=== PATIENT | female | born 1945 | race Caucasian/White ===

== ENCOUNTER 2020-03-19 09:20 | Outpatient (REF) | payer MEDICARE, SELFPAY ==
[2020-03-19 11:18] LABS: MANUAL DIFF FLAG NO
[2020-03-19 11:25] LABS: Basophils Absolute Auto 0.1 X10*3/uL (0.0-0.2); Basophils Percent Auto 0.9 % (0-2); Eosinophils Absolute Auto 0.5 X10*3/uL (0.0-0.4); Eosinophils Percent Auto 5.6 % (0-4); Hemoglobin 13.5 g/dl (12.0-16.0); Imm Gran Abs Auto 0.01 X10*3/uL (0.00-0.03); Imm Gran Pct Auto 0.1 % (0.0-0.4); Lymphocytes Absolute Auto 3.3 X10*3/uL (1.2-4.9); Lymphocytes Percent Auto 39.6 % (20-40); Mean Corpuscular HGB Conc 32.1 g/dl (31.0-35.0); Mean Corpuscular Hemoglobin 28.7 pg (27.0-33.0); Mean Corpuscular Volume 89.2 fL (80-98); Mean Platelet Volume 11.5 fL (9.4-12.3); Monocytes Absolute Auto 0.5 X10*3/uL (0.1-1.2); Monocytes Percent Auto 5.7 % (2-11); Neutrophils Absolute Auto 3.9 X10*3/uL (2.0-8.3); Neutrophils Percent Auto 48.1 % (45-73); Platelet Count 254 X10*3/uL (160-400); Red Blood Count 4.71 X10*6/uL (4.20-5.50); Red Cell Distribution Width 12.9 % (11.0-16.0); White Blood Count 8.2 X10*3/uL (4.8-10.8)
[2020-03-19 11:38] LABS: Alanine Aminotransferase 20 U/L (0-31); Albumin Level 3.9 g/dL (3.5-5.0); Alkaline Phosphatase 113 U/L (39-117); Anion Gap 12 (12-20); Aspartate Amino Transferase 22 U/L (5-31); Bilirubin Total 0.4 mg/dL (0.0-1.0); Blood Urea Nitrogen 14 mg/dL (9-16); Calcium 8.8 mg/dL (8.4-10.2); Carbon Dioxide 28 mmol/L (22-29); Chloride 106 mmol/L (96-108); Cholesterol 161 mg/dL; Estimated Glomerular Filt Rate > 60; Glucose Fasting 107 mg/dL (60-99); HDL Cholesterol 59 mg/dL; LDL Cholesterol Calculated 75 mg/dl; Potassium 4.4 mmol/l (3.3-5.1); Sodium 142 mmol/L (135-145); Total Protein 6.8 g/dL (6.5-8.0); Triglycerides 139 mg/dL
[2020-03-19 11:41] LABS: Estimated Average Glucose 126 mg/dL; Hemoglobin A1C 148.9591 umol/L
[2020-03-19 11:57] LABS: Thyroid Stimulating Hormone 0.73 uIU/mL (0.32-4.0)
== END 2020-03-19 09:21 | disposition home or self-care (01) ==
LOC: HO.HMGCLDS 09:20
PROVIDERS: PCP Internal Medicine; Visit Provider Internal Medicine
DX: I10 Essential (primary) hypertension (principal); E78.2 Mixed hyperlipidemia; R73.9 Hyperglycemia, unspecified; F32.9 Major depressive disorder, single episode, unspecified
CPT/HCPCS: 36415; 80053; 80061; 83036; 84443; 85025

== ENCOUNTER 2020-09-24 10:35 | Outpatient (REF) | payer MEDICARE, SELFPAY ==
[2020-09-24 14:25] LABS: Alanine Aminotransferase 22 U/L (0-31); Alkaline Phosphatase 118 U/L (39-117); Anion Gap 14 (12-20); Aspartate Amino Transferase 23 U/L (5-31); Bilirubin Total 0.8 mg/dL (0.0-1.0); Blood Urea Nitrogen 14 mg/dL (9-16); Calcium 9.9 mg/dL (8.4-10.2); Carbon Dioxide 28 mmol/L (22-29); Chloride 104 mmol/L (96-108); Cholesterol 181 mg/dL; Estimated Glomerular Filt Rate > 60; Glucose Fasting 99 mg/dL (60-99); HDL Cholesterol 62 mg/dL; LDL Cholesterol Calculated 94 mg/dl; Potassium 4.3 mmol/L (3.3-5.1); Sodium 142 mmol/L (135-145); Total Protein 6.7 g/dL (6.5-8.0); Triglycerides 127 mg/dL
[2020-09-24 14:26] LABS: Estimated Average Glucose 131 mg/dL; Hemoglobin A1c % 6.2 %
[2020-09-24 14:32] LABS: Creatinine Urine 100.13 mg/dL; Microalbum/Creatinine Ratio Ur 9.9 ug/mg cr
== END 2020-09-24 10:36 | disposition home or self-care (01) ==
LOC: HO.HMGCLDS 10:35
PROVIDERS: PCP Internal Medicine; Visit Provider Internal Medicine
DX: E78.5 Hyperlipidemia, unspecified (principal); I10 Essential (primary) hypertension; R73.9 Hyperglycemia, unspecified
CPT/HCPCS: 36415; 80053; 80061; 82043; 83036

== ENCOUNTER 2020-12-28 11:10 | Emergency (ER) | payer MEDICARE, SELFPAY ==
--- NOTE | ~2020-12-28 | XR_ITS ---
EXAMINATION: XR CHEST CLINICAL INFORMATION: Cough COMPARISON: None TECHNIQUE: Frontal view of the chest was obtained. FINDINGS: The cardiac and mediastinal contours are normal. The lungs are clear. There is no pleural effusion or pneumothorax. There are degenerative changes of the spine. XR/XR chest 1V IMPRESSION: No evidence for acute disease in the chest.
--- NOTE | ~2020-12-28 | CT_ITS ---
EXAMINATION: CT HEAD WITHOUT CONTRAST CLINICAL INFORMATION: Headache COMPARISON: None TECHNIQUE: Contiguous axial imaging was performed from the skull base to vertex without intravenous administration of contrast. This CT examination was performed using dose optimization techniques as appropriate, variously including the following: *Automated exposure control *Adjustment of mA and/or kV according to patient size (this includes techniques or standardized protocols for targeted exams where dose is matched to indication/reason for exam; i.e. extremities or head) *Use of iterative reconstruction technique DLP: 669 mGy-cm FINDINGS: There is no evidence of an extra-axial collection. There is no evidence of intra or extra-axial hemorrhage. The ventricles and extra-axial CSF spaces are prominent suggestive of mild generalized atrophy. [place]-white matter differentiation is normal. There is dural based ossification adjacent to the left frontal lobe just above the sylvian fissure questionable for small meningioma. This measures approximately 1 cm. No mass effect or infarct is seen. Review of bone windows is normal. No skull fracture is seen. Visualized paranasal sinuses, mastoid air cells and middle ears are clear. CT/CT head/brain wo con IMPRESSION: No acute findings. Question small meningioma adjacent to the left frontal lobe measuring 1 cm.
[2020-12-28 12:12] VITALS: BP 167/49; PULSE 53; RESP 18; TEMP 36.5; O2SAT 100; BMI 27.1
--- NOTE | 2020-12-28 12:58 | ED_ITS ---
HPI - Headache General Chief Complaint: Headache Stated Complaint: headache Time Seen by Provider: 12/28/20 12:51 History of Present Illness HPI Narrative: 75-year-old female presents today with having headache. The headache is over the left side. There is dull in nature. Is nonradiating. There is no fever no chills. There is no focal weakness. History of similar headaches in the past. Patient claims the pain is been getting worse over last 1-2 days. Patient denies any diaphoresis. No chest pain or shortness of breath. No cough no congestion. Patient is vaccinated. The pain is throbbing. There is no change in vision. Patient is from home. No travel history Related Data Previous Rx's Medication Instructions Recorded amlodipine 2.5 mg tablet 2.5 mg PO DAILY #90 tab 11/08/20 atorvastatin 40 mg tablet 40 mg PO DAILY #90 tab 11/08/20 duloxetine 60 mg capsule,delayed 60 mg PO DAILY #90 cap 11/08/20 release lisinopril 20 1 tab PO DAILY #90 tab 11/08/20 mg-hydrochlorothiazide 12.5 mg tablet baclofen 10 mg tablet 10 mg PO BEDTIME #10 tab 11/27/20 meloxicam 15 mg tablet 15 mg PO DAILY #10 tab 11/27/20 Allergies Allergy/AdvReac Type Severity Reaction Status Date / Time No Known Allergies Allergy Verified 12/28/20 09:23 [No Known Allergies*] Review of Systems Review of Systems: Positive headache, positive generalized malaise weakness All systems reviewed otherwise negative PMFSH Past Medical History Attestation statement: The following information was validated with the patient. Medical History Depression HTN (hypertension) Hyperglycemia Hyperlipidemia Neck pain Surgical History No pertinent past surgical history Family History Family History Father No problems noted. Mother Heart problem Social History Social History Housing: House Patient Tobacco Use Status: Never used Tobacco e-Cigarette/Vaping Use: Never Used Advance Directives: No Current occupational status: retired Physical Exam Vital Signs: Vital Signs: Last Vital Signs Temp 97.7 F 12/28/20 12:12 Pulse 53 12/28/20 12:12 Resp 18 12/28/20 12:12 BP 167/49 H 12/28/20 12:12 Pulse Ox 100 12/28/20 12:12 Body Mass Index 27.1 Appearance: Alert. Oriented X3. No acute distress. Eyes: Pupils equal, round and reactive to light. ENT: Pharynx normal. Neck: Normal inspection. Neck supple. No lymph nodes noted. No crepitus CVS: Normal heart rate and rhythm. Pulses normal. Normal S1 and S2 Respiratory: No respiratory distress. Breath sounds normal. No Wheezing. No rales Abdomen: Soft and nontender. No rigidity. No distention. good BS x4 Skin: Skin warm and dry. Normal skin color. Normal skin turgor. Extremities: No lower extremity edema. Neurovascular intact to all extremities. No Lacerations. No Rash Neuro: Oriented X 3. No motor deficit. No sensory deficit. Moving all exterm ities. No slurred speech MDM - Headache MDM Narrative Medical decision making narrative: Well-appearing neurologically intact. Patient's sed rate is normal. No evidence for temporal arteritis. CT scan of the head was grossly negative for any acute evidence of bleeding. No mass. Patient given Toradol in the emergency department good relief of symptoms. Will discharge patient home. Question tension versus migraine headache in stable condition vision grossly intact. No evidence for glaucoma. Differential Diagnosis Differential diagnosis: Likely migraine and tension headache Lab Data Result diagrams: 12/28/20 13:34 12/28/20 14:22 Labs: Lab Results 12/28/20 12/28/20 12/28/20 Range/Units 13:34 13:34 14:22 WBC 9.3 (4.8-10.8) X10*3/uL RBC 4.57 (4.20-5.50) X10*6/uL Hgb 13.3 (12.0-16.0) g/dl Hct 39.7 (37-47) % MCV 86.9 (80-98) fL MCH 29.1 (27.0-33.0) pg MCHC 33.5 (31.0-35.0) g/dl RDW 12.8 (11.0-16.0) % Plt Count 273 (160-400) X10*3/uL MPV 10.6 (9.4-12.3) fL Immature Gran % (Auto) 0.2 (0.0-0.4) % Neut % (Auto) 52.5 (45-73) % Lymph % (Auto) 37.3 (20-40) % [place] % (Auto) 5.4 (2-11) % Eos % (Auto) 4.3 H (0-4) % Baso % (Auto) 0.3 (0-2) % Lymph # (Auto) 3.5 (1.2-4.9) X10*3/uL [place] # (Auto) 0.5 (0.1-1.2) X10*3/uL Eos # (Auto) 0.4 (0.0-0.4) X10*3/uL Baso # (Auto) 0.0 (0.0-0.2) X10*3/uL Abs Immat Gran (auto) 0.02 (0.00-0.03) X10*3/uL Absolute Neuts (auto) 4.9 (2.0-8.3) X10*3/uL Absolute Nucleated RBC 0.000 (0.0-0.012) X10*3/uL Nucleated RBC % (auto) 0.0 (0.0-0.2) /100WBC ESR 10 (0-20) MM/HR Sodium 143 (135-145) mmol/L Potassium 3.8 (3.3-5.1) mmol/L Chloride 107 (96-108) mmol/L Carbon Dioxide 28 (22-29) mmol/L Anion Gap 12 (12-20) BUN 14 (9-16) mg/dL Creatinine 0.64 (0.5-1.4) mg/dL Estim Creat Clear Calc 67.2 Estimated GFR > 60 Random Glucose 102 (60-115) mg/dL Calcium 9.1 D (8.4-10.2) mg/dL Total Bilirubin 0.6 (0.0-1.0) mg/dL Direct Bilirubin 0.2 (0.0-0.5) mg/dL AST 26 (5-31) U/L ALT 22 (0-31) U/L Alkaline Phosphatase 116 (39-117) U/L Total Protein 6.6 (6.5-8.0) g/dL Albumin 4.0 (3.5-5.0) g/dL Discharge Plan Discharge Clinical Impression: Headache Patient Disposition: Home, Self-Care Instructions: General Headache (ED) Prescriptions: No Action duloxetine 60 mg capsule,delayed release(DR/EC) 60 mg PO DAILY Qty: 90 RF: 0 atorvastatin 40 mg tablet 40 mg PO DAILY Qty: 90 RF: 0 amlodipine 2.5 mg tablet 2.5 mg PO DAILY Qty: 90 RF: 0 lisinopril-hydrochlorothiazide 20-12.5 mg tablet 1 tab PO DAILY Qty: 90 RF: 0 meloxicam 15 mg tablet 15 mg PO DAILY Qty: 10 RF: 0 baclofen 10 mg tablet 10 mg PO BEDTIME Qty: 10 RF: 0 Referrals: Veronica Randhawa MD [Primary Care Provider] - 2 days
[2020-12-28 13:38] LABS: MANUAL DIFF FLAG NO
[2020-12-28 13:44] LABS: Basophils Percent Auto 0.3 % (0-2); Eosinophils Absolute Auto 0.4 X10*3/uL (0.0-0.4); Eosinophils Percent Auto 4.3 % (0-4); Hematocrit 39.7 % (37-47); Hemoglobin 13.3 g/dl (12.0-16.0); Imm Gran Abs Auto 0.02 X10*3/uL (0.00-0.03); Imm Gran Pct Auto 0.2 % (0.0-0.4); Lymphocytes Absolute Auto 3.5 X10*3/uL (1.2-4.9); Lymphocytes Percent Auto 37.3 % (20-40); Mean Corpuscular HGB Conc 33.5 g/dl (31.0-35.0); Mean Corpuscular Hemoglobin 29.1 pg (27.0-33.0); Mean Corpuscular Volume 86.9 fL (80-98); Mean Platelet Volume 10.6 fL (9.4-12.3); Monocytes Absolute Auto 0.5 X10*3/uL (0.1-1.2); Monocytes Percent Auto 5.4 % (2-11); Neutrophils Absolute Auto 4.9 X10*3/uL (2.0-8.3); Neutrophils Percent Auto 52.5 % (45-73); Platelet Count 273 X10*3/uL (160-400); Red Blood Count 4.57 X10*6/uL (4.20-5.50); Red Cell Distribution Width 12.8 % (11.0-16.0); White Blood Count 9.3 X10*3/uL (4.8-10.8)
[2020-12-28] MEDS: Ketorolac Tromethamine 30 MG/ML VIAL IVPUSH (13:49)
--- NOTE | 2020-12-28 13:50 | PC.NURSE ---
patient a&ox3, iv inserted, labs drawn, vss, pt medicated per order, family at bedside, will continue to monitor.
[2020-12-28 14:23] LABS: Erythrocyte Sedimentation Rate 10 MM/HR (0-20)
[2020-12-28 14:48] LABS: Alanine Aminotransferase 22 U/L (0-31); Alkaline Phosphatase 116 U/L (39-117); Anion Gap 12 (12-20); Aspartate Amino Transferase 26 U/L (5-31); Bilirubin Direct 0.2 mg/dL (0.0-0.5); Bilirubin Total 0.6 mg/dL (0.0-1.0); Blood Urea Nitrogen 14 mg/dL (9-16); Calcium 9.1 mg/dL (8.4-10.2); Carbon Dioxide 28 mmol/L (22-29); Chloride 107 mmol/L (96-108); Creatinine Clr Calc Pharmacy 67.2; Estimated Glomerular Filt Rate > 60; Glucose Random 102 mg/dL (60-115); Potassium 3.8 mmol/L (3.3-5.1); Sodium 143 mmol/L (135-145); Total Protein 6.6 g/dL (6.5-8.0)
[2020-12-28 15:56] VITALS: BP 161/53; PULSE 58; RESP 18; TEMP 36.7; O2SAT 98
== END 2020-12-28 15:56 | disposition home or self-care (01) ==
PROVIDERS: Emergency Provider Emergency Medicine Emergency Medical Services; PCP Internal Medicine
DX: R51.9 Headache, unspecified (principal); Z79.899 Other long term (current) drug therapy
CPT/HCPCS: 36415; 70450; 71045; 80048; 80076; 85025; 85652; 96374; 96375; 99284; J1885

== ENCOUNTER 2021-03-20 13:38 | Outpatient (REF) | payer MEDICARE, SELFPAY ==
[2021-03-20 14:48] LABS: Hematocrit 42.1 % (37.0-47.0); Hemoglobin 13.7 g/dl (12.0-16.0); Mean Corpuscular HGB Conc 32.5 g/dl (31.0-35.0); Mean Corpuscular Hemoglobin 29.1 pg (27.0-33.0); Mean Corpuscular Volume 89.4 fL (80.0-98.0); Mean Platelet Volume 10.7 fL (9.4-12.3); Platelet Count 248 X10*3/uL (160-400); Red Blood Count 4.71 X10*6/uL (4.20-5.50); Red Cell Distribution Width 13.2 % (11.0-16.0); White Blood Count 8.9 X10*3/uL (4.8-10.8)
[2021-03-20 15:02] LABS: Anion Gap 8 (12-20); Blood Urea Nitrogen 17 mg/dL (9-16); C Reactive Protein 0.11 mg/dL (< or = 0.50); Calcium 9.4 mg/dL (8.4-10.2); Carbon Dioxide 31 mmol/L (22-29); Chloride 107 mmol/L (96-108); Estimated Glomerular Filt Rate > 60; Glucose Random 81 mg/dL (60-115); Potassium 4.1 mmol/L (3.3-5.1); Sodium 142 mmol/L (135-145)
== END 2021-03-20 13:39 | disposition home or self-care (01) ==
LOC: HO.HMGCLDS 13:38
PROVIDERS: PCP Internal Medicine; Visit Provider Internal Medicine
DX: M54.2 Cervicalgia (principal)
CPT/HCPCS: 36415; 80048; 85027; 86140

== ENCOUNTER 2021-04-28 13:12 | Inpatient (IN) | payer MEDICARE, SELFPAY ==
[2021-04-28 13:16] VITALS: BP 162/66; PULSE 93; RESP 16; TEMP 36.1; O2SAT 97; BMI 25.6
--- NOTE | 2021-04-28 13:59 | ED_ITS ---
HPI - Psych General Chief Complaint: Psychiatric Symptoms Stated Complaint: crisis Time Seen by Provider: 04/28/21 13:41 Source: patient Mode of arrival: ambulatory Limitations: no limitations History of Present Illness MD complaint: suicidal ideation and feels depressed Onset (ago): week(s) Duration: getting worse History of same: Yes Relieving factors: none Exacerbating factors: other ( is making things difficult for her she feels very isolated) Context: other ( is having memory issues and trying to keep patient from her sister) Associated psychiatric symptoms: depression and suicidal ideation Associated symptoms: denies other symptoms If self harm: admits thoughts of self harm and has plan (would overdose on her pills) Related Data Previous Rx's Medication Instructions Recorded baclofen 10 mg tablet 10 mg PO BEDTIME #30 tab 01/07/21 meloxicam 15 mg tablet 15 mg PO DAILY #14 tab 01/07/21 amlodipine 2.5 mg tablet 2.5 mg PO DAILY #90 tab 02/12/21 duloxetine 60 mg capsule,delayed 60 mg PO DAILY #90 cap 02/12/21 release atorvastatin 40 mg tablet 40 mg PO DAILY #90 tab 02/18/21 lisinopril 20 1 tab PO DAILY #90 tab 02/18/21 mg-hydrochlorothiazide 12.5 mg tablet Allergies Allergy/AdvReac Type Severity Reaction Status Date / Time No Known Allergies Allergy Verified 04/28/21 13:16 [No Known Allergies*] Review of Systems Review of Systems: Constitutional : No Fever, No Chills ENT/Mouth : No Ear Pain, No Nasal Congestion, No sore throat Eyes: No Eye Pain, No Swelling, No Redness Cardiovascular : No Chest Pain, No SOB Respiratory : No Cough, No Sputum, No Dyspnea Gastrointestinal : No Nausea, No Vomiting, No Diarrhea, No Hematochezia, No Melena Genitourinary : No Dysuria, No Urinary Frequency, No Hematuria Musculoskeletal : No Myalgias Skin : No Skin Lesions, No rash Neuro : No Weakness, No Numbness, No Paresthesias, No Dizziness, No Headache Psych : positive Anxiety, positive Depression, positive SI no HI Heme/Lymph: No Lymphadenopathy Endocrine : No Polyuria, No Polydipsia All other systems reviewed and are negative [facility] Past Medical History Attestation statement: The following information was validated with the patient. Medical History Depression Fatigue HTN (hypertension) Hyperglycemia Hyperlipidemia Neck pain Surgical History No pertinent past surgical history Family History Family History Father No problems noted. Mother Heart problem Social History Social History Housing: House Patient Tobacco Use Status: Never used Tobacco e-Cigarette/Vaping Use: Never Used Use of substances other than those prescribed or required for medical reasons: No Advance Directives: No Advance Directives Information Provided: No Current occupational status: retired Physical Exam Vital Signs: Vital Signs: Last Vital Signs Temp 97 F 04/28/21 13:16 Pulse 93 04/28/21 13:16 Resp 16 04/28/21 13:16 BP 162/66 H 04/28/21 13:16 Pulse Ox 97 04/28/21 13:16 BMI result Body Mass Index 25.6 Appearance: Alert. Oriented X3. No acute distress. Eyes: Pupils equal, round and reactive to light. ENT: Pharynx normal. Neck: Normal inspection. Neck supple. CVS: Normal heart rate and rhythm. Pulses normal. Respiratory: No respiratory distress. Breath sounds normal. Abdomen: Soft and non-tender. Skin: Skin warm and dry. Normal skin color. Normal skin turgor. Extremities: No lower extremity edema. No calf ttp Neuro: Oriented X 3. No motor deficit. No sensory deficit. CN2-12 intact Psych: calm and cooperative, tearful at times Course Course Course Narrative: medically cleared Physician observation started at 316pm Patient placed in physician observation because the patient needed more time for [facility] to assess the need for inpatient psych admission. At the time observation was started the patient's vitals were stable, patient is alert and oriented but slightly anxious, Neuro: nonfocal, CV RRR, Lungs clear MDM - Psych MDM Narrative Medical decision making narrative: 75 yo female with hx of HTN, HLD, depression [facility] no prior hospitalizations here with c/o depression and SI - at this time she has no medical complaints, will obtain basic labs and refer to [facility] Lab Data Result diagrams: 04/28/21 14:34 04/28/21 14:34 Labs: Lab Results 04/28/21 04/28/21 04/28/21 Range/Units 14:34 14:34 14:34 WBC 10.0 (4.8-10.8) X10*3/uL RBC 4.57 (4.20-5.50) X10*6/uL Hgb 13.4 (12.0-16.0) g/dl Hct 39.8 (37.0-47.0) % MCV 87.1 (80.0-98.0) fL MCH 29.3 (27.0-33.0) pg MCHC 33.7 (31.0-35.0) g/dl RDW 13.1 (11.0-16.0) % Plt Count 281 (160-400) X10*3/uL MPV 10.5 (9.4-12.3) fL Immature Gran % (Auto) 0.4 (0.0-0.4) % Neut % (Auto) 68.3 (45-73) % Lymph % (Auto) 23.9 (20-40) % [place] % (Auto) 6.2 (2-11) % Eos % (Auto) 1.0 (0-4) % Baso % (Auto) 0.2 (0-2) % Lymph # (Auto) 2.4 (1.2-4.9) X10*3/uL [place] # (Auto) 0.6 (0.1-1.2) X10*3/uL Eos # (Auto) 0.1 (0.0-0.4) X10*3/uL Baso # (Auto) 0.0 (0.0-0.2) X10*3/uL Abs Immat Gran (auto) 0.04 H (0.00-0.03) X10*3/uL Absolute Neuts (auto) 6.9 (2.0-8.3) x10*3/uL Absolute Nucleated RBC 0.000 (0.0-0.012) X10*3/uL Nucleated RBC % (auto) 0.0 (0.0-0.2) /100WBC Sodium 138 (135-145) mmol/L Potassium 3.9 (3.3-5.1) mmol/L Chloride 103 (96-108) mmol/L Carbon Dioxide 28 (22-29) mmol/L Anion Gap 11 L (12-20) BUN 15 (9-16) mg/dL Creatinine 0.68 (0.5-1.4) mg/dL Estim Creat Clear Calc 61.5 Estimated GFR > 60 Random Glucose 132 H (60-115) mg/dL Calcium 10.0 D (8.4-10.2) mg/dL Magnesium 1.9 (1.6-2.6) mg/dL Total Bilirubin 0.5 (0.0-1.0) mg/dL Direct Bilirubin 0.2 (0.0-0.5) mg/dL AST 19 (5-31) U/L ALT 11 (0-31) U/L Alkaline Phosphatase 106 (39-117) U/L Total Protein 6.7 (6.5-8.0) g/dL Albumin 4.0 (3.5-5.0) g/dL Urine Color Urine Appearance Urine pH (5.0-8.0) Ur Specific [place] (1.005-1.025) Urine Protein (NEG-TRACE) MG/DL Urine Glucose (UA) (NEG) MG/DL Urine Ketones (NEG) MG/DL Urine Blood (NEG) Urine Nitrite (NEG) Ur Leukocyte Esterase (NEG) Urine RBC (0) /HPF Urine WBC (0-4) /HPF Ur Squamous Epith Cells /LPF Ur Renal Epithelial Cell /LPF Urine Bacteria /LPF Urine Opiates Screen (Not Detect) Urine Fentanyl Screen (Not Detect) Ur Barbiturates Screen (Not Detect) Ur Phencyclidine Scrn (Not Detect) Ur Amphetamines Screen (Not Detect) U Benzodiazepines Scrn (Not Detect) Urine Cocaine Screen (Not Detect) U Marijuana (THC) Screen (Not Detect) Ethyl Alcohol mg/dL COVID-19 (SHELBI) Negative (Negative) COVID-19 Clin Com See Note 04/28/21 04/28/21 04/28/21 Range/Units 14:34 14:34 14:34 WBC (4.8-10.8) X10*3/uL RBC (4.20-5.50) X10*6/uL Hgb (12.0-16.0) g/dl Hct (37.0-47.0) % MCV (80.0-98.0) fL MCH (27.0-33.0) pg MCHC (31.0-35.0) g/dl RDW (11.0-16.0) % Plt Count (160-400) X10*3/uL MPV (9.4-12.3) fL Immature Gran % (Auto) (0.0-0.4) % Neut % (Auto) (45-73) % Lymph % (Auto) (20-40) % [place] % (Auto) (2-11) % Eos % (Auto) (0-4) % Baso % (Auto) (0-2) % Lymph # (Auto) (1.2-4.9) X10*3/uL [place] # (Auto) (0.1-1.2) X10*3/uL Eos # (Auto) (0.0-0.4) X10*3/uL Baso # (Auto) (0.0-0.2) X10*3/uL Abs Immat Gran (auto) (0.00-0.03) X10*3/uL Absolute Neuts (auto) (2.0-8.3) x10*3/uL Absolute Nucleated RBC (0.0-0.012) X10*3/uL Nucleated RBC % (auto) (0.0-0.2) /100WBC Sodium (135-145) mmol/L Potassium (3.3-5.1) mmol/L Chloride (96-108) mmol/L Carbon Dioxide (22-29) mmol/L Anion Gap (12-20) BUN (9-16) mg/dL Creatinine (0.5-1.4) mg/dL Estim Creat Clear Calc Estimated GFR Random Glucose (60-115) mg/dL Calcium (8.4-10.2) mg/dL Magnesium (1.6-2.6) mg/dL Total Bilirubin (0.0-1.0) mg/dL Direct Bilirubin (0.0-0.5) mg/dL AST (5-31) U/L ALT (0-31) U/L Alkaline Phosphatase (39-117) U/L Total Protein (6.5-8.0) g/dL Albumin (3.5-5.0) g/dL Urine Color YELLOW Urine Appearance CLEAR Urine pH 6.0 (5.0-8.0) Ur Specific [place] 1.010 (1.005-1.025) Urine Protein NEG (NEG-TRACE) MG/DL Urine Glucose (UA) NEG (NEG) MG/DL Urine Ketones NEG (NEG) MG/DL Urine Blood TRACE (NEG) Urine Nitrite NEG (NEG) Ur Leukocyte Esterase 1+ H (NEG) Urine RBC 0-2 (0) /HPF Urine WBC 1-4 (0-4) /HPF Ur Squamous Epith Cells TRACE /LPF Ur Renal Epithelial Cell TRACE /LPF Urine Bacteria NONE /LPF Urine Opiates Screen Not Detected (Not Detect) Urine Fentanyl Screen Not Detected (Not Detect) Ur Barbiturates Screen Not Detected (Not Detect) Ur Phencyclidine Scrn Not Detected (Not Detect) Ur Amphetamines Screen Not Detected (Not Detect) U Benzodiazepines Scrn Not Detected (Not Detect) Urine Cocaine Screen Not Detected (Not Detect) U Marijuana (THC) Screen Not Detected (Not Detect) Ethyl Alcohol < 10 mg/dL COVID-19 ([facility]) (Negative) COVID-19 Clin Com Discharge Plan Discharge Clinical Impression: Depression Patient Disposition: Still a Patient Prescriptions: No Action amlodipine 2.5 mg tablet 2.5 mg PO DAILY Qty: 90 0RF duloxetine 60 mg capsule,delayed release(DR/EC) 60 mg PO DAILY Qty: 90 0RF lisinopril-hydrochlorothiazide 20-12.5 mg tablet 1 tab PO DAILY Qty: 90 3RF atorvastatin 40 mg tablet 40 mg PO DAILY Qty: 90 3RF meloxicam 15 mg tablet 15 mg PO DAILY Qty: 14 0RF baclofen 10 mg tablet 10 mg PO BEDTIME Qty: 30 0RF
--- NOTE | 2021-04-28 14:00 | PC.NURSE ---
pt alert and oriented, vss, denies pain. pt voluntarily came to the ed, she reports that her son leaving 3 kids and a and has been depressed since his passing. she reports that she was having SI prior to coming to the ed. she states that she feels safer now that she is here. pt pleasant and cooperative. Denies SI/HI. pt seen by ed provider.
[2021-04-28 14:41] LABS: MANUAL DIFF FLAG NO
[2021-04-28 14:51] LABS: Appearance Urine CLEAR; Basophils Percent Auto 0.2 % (0-2); Color Urine YELLOW; Eosinophils Absolute Auto 0.1 X10*3/uL (0.0-0.4); Glucose Urine UA NEG (NEG); Hematocrit 39.8 % (37.0-47.0); Hemoglobin 13.4 g/dl (12.0-16.0); Imm Gran Abs Auto 0.04 X10*3/uL (0.00-0.03); Imm Gran Pct Auto 0.4 % (0.0-0.4); Leukocyte Esterase Urine 1+ (NEG); Lymphocytes Absolute Auto 2.4 X10*3/uL (1.2-4.9); Lymphocytes Percent Auto 23.9 % (20-40); Mean Corpuscular HGB Conc 33.7 g/dl (31.0-35.0); Mean Corpuscular Hemoglobin 29.3 pg (27.0-33.0); Mean Corpuscular Volume 87.1 fL (80.0-98.0); Mean Platelet Volume 10.5 fL (9.4-12.3); Monocytes Absolute Auto 0.6 X10*3/uL (0.1-1.2); Monocytes Percent Auto 6.2 % (2-11); Neutrophils Absolute Auto 6.9 x10*3/uL (2.0-8.3); Neutrophils Percent Auto 68.3 % (45-73); Nitrite Urine NEG (NEG); Platelet Count 281 X10*3/uL (160-400); Red Blood Count 4.57 X10*6/uL (4.20-5.50); Red Cell Distribution Width 13.1 % (11.0-16.0); UACC Culture Trigger YES; Urine Blood TRACE (NEG); Urine Ketones NEG (NEG); Urine Protein NEG (NEG-TRACE)
[2021-04-28 14:59] LABS: Squamous Epithelial Cell Urine TRACE /LPF
[2021-04-28 15:00] LABS: COVID-19 Test Negative (Negative); RBC Urine 0-2 /HPF (0); Renal Epithelial Cells Urine TRACE /LPF
[2021-04-28 15:01] LABS: Ethanol < 10 mg/dL
[2021-04-28 15:04] LABS: Amphetamine Screen Urine Not Detected (Not Detect); Barbiturates, Urine Not Detected (Not Detect); Benzodiazepines Screen Urine Not Detected (Not Detect); Cannabinoid Screen Urine Not Detected (Not Detect); Cocaine Screen Urine Not Detected (Not Detect); Fentanyl, urine Not Detected (Not Detect); Opiate Screen Urine Not Detected (Not Detect); Phencyclidine Screen Urine Not Detected (Not Detect)
[2021-04-28 15:05] LABS: Alanine Aminotransferase 11 U/L (0-31); Alkaline Phosphatase 106 U/L (39-117); Anion Gap 11 (12-20); Aspartate Amino Transferase 19 U/L (5-31); Bilirubin Direct 0.2 mg/dL (0.0-0.5); Bilirubin Total 0.5 mg/dL (0.0-1.0); Blood Urea Nitrogen 15 mg/dL (9-16); Carbon Dioxide 28 mmol/L (22-29); Chloride 103 mmol/L (96-108); Creatinine Clr Calc Pharmacy 61.5; Estimated Glomerular Filt Rate > 60; Glucose Random 132 mg/dL (60-115); Magnesium 1.9 mg/dL (1.6-2.6); Potassium 3.9 mmol/L (3.3-5.1); Sodium 138 mmol/L (135-145); Total Protein 6.7 g/dL (6.5-8.0)
[2021-04-28 15:27] LABS: TSH reflex Free T4 0.91 uIU/mL (0.32-4.0)
[2021-04-28 18:00] VITALS: BP 144/61; PULSE 70; TEMP 36.7; O2SAT 98
[2021-04-28] MEDS: diphenhydrAMINE HCL 25 MG TABLET 50 MG PO (21:58)
--- NOTE | 2021-04-29 | ECG_ITS ---
Test Reason : med clearance Blood Pressure : / mmHG Vent. Rate : 076 BPM Atrial Rate : 076 BPM P-R Int : 138 ms QRS Dur : 078 ms QT Int : 410 ms P-R-T Axes : 034 017 058 degrees QTc Int : 461 ms Normal sinus rhythm Normal ECG When compared with ECG of 08-JUL-2001 06:48, QT has lengthened Referred By: Roula Victor Electronically Signed By:Jorge Alberto Mosqueda
[2021-04-29 06:11] VITALS: BP 125/63; PULSE 68; RESP 18; TEMP 36.9; O2SAT 95
--- NOTE | 2021-04-29 06:13 | PC.NURSE ---
Patient slept through the night, good effect from Benadryl 50 mg administered at 2158, medication compliant, coherent thought process, patient was screened by care team, pending disposition at this time, patient assessment will be followed up care team in the morning, VSS, will continue to monitor.
--- NOTE | 2021-04-29 07:19 | PC.NURSE ---
patient appears to remain asleep at present respirations are even and unlabored patient appears in no distress
[2021-04-29] MEDS: amLODIPine Besylate 2.5 MG TABLET PO (10:06)
[2021-04-29] MEDS: Atorvastatin Calcium 40 MG TABLET PO (10:07)
[2021-04-29] MEDS: DULoxetine HCl 60 MG CAPSULE.DR PO (10:07)
[2021-04-29] MEDS: lisinopriL 20 MG TABLET PO (10:07)
[2021-04-29] MEDS: hydroCHLOROthiazide 12.5 MG TABLET PO (10:07)
[2021-04-29 14:58] LABS: COVID-19 Test Negative (Negative)
[2021-04-29 17:06] VITALS: BP 119/60; PULSE 77; RESP 18; TEMP 36.1; O2SAT 96
--- NOTE | 2021-04-29 20:30 | PC.NURSE ---
Patient is alert and compliant verballized undersdtanding of transfer to s1. Rn called for nurse to nurse patient was taken to s1 via wheelchair and escorted by s1 staff and security.
[2021-04-29 22:25] VITALS: BP 125/65; PULSE 79; RESP 16; TEMP 36.7; O2SAT 96
--- NOTE | 2021-04-29 23:30 | PC.NURSE ---
Pt admitted from [facility] on 04/29/21 at 204. Pt has no SI/HI at this tiPt Pt is pleasant, alert and orientated x4. Pt was cooperative.Pt stated her wouldn't allow her sister to come into their home anymore. Pt would not elaborate on the cause of the strife. Pt is very close to sister and relies on sister to talk to about pt's grief over son's passing 15 years ago. The sisters are very close. Pt felt so despondent that she was thinking of taking all her medication at once. Pt stated that she has not been able to sleep well for a while now and pt stated that she knows that her lack of sleep is making her depression worse also. Pt shows a great interest in getting help with her meds because they are not working very well anymore. Pt was seeing a psychiatrist but he retired a while ago and her and her sister have not been able to find another who accepts pt's insurance. Pt seems to be in good health for her age. Pt has HTN which appears to be well controlled on her medication.
[2021-04-30 05:44] VITALS: BMI 26.2
[2021-04-30 07:55] VITALS: BP 131/60; PULSE 74; RESP 16; TEMP 36.7; O2SAT 97
[2021-04-30] MEDS: amLODIPine Besylate 2.5 MG TABLET PO (08:28)
[2021-04-30] MEDS: Atorvastatin Calcium 40 MG TABLET PO (08:28)
[2021-04-30] MEDS: hydroCHLOROthiazide 12.5 MG TABLET PO (08:28)
[2021-04-30] MEDS: lisinopriL 20 MG TABLET PO (08:28)
[2021-04-30] MEDS: DULoxetine HCl 60 MG CAPSULE.DR PO (08:28)
--- NOTE | 2021-04-30 16:48 | HO.PSYADMNOT ---
[facility] Date of Service: 04/30/21 Chief Complaint: SI Sources of Information: patient interviewed, chart reviewed and crisis/core team assessment reviewed HPI Subjective Notes: Conditional Voluntary Narrative: The patient is a 75-year-old female, from [place], , mother of 3 adult children, living with her , referred from the emergency room for exacerbation of depression in the context of conflictual family issues. The patient reported that 15 years ago her son for medical condition and her depressive symptoms worsen at elicited by depressed mood, anhedonia, lack of energy, feelings of hopelessness and worthlessness. She started treatment as an outpatient and she had been taking Cymbalta for several years with some improvement. She has never been admitted into the hospital for psychiatric reasons. The patient reported that in the last weeks there was some conflicts between her and her sister and she felt overwhelmed for the conflict. She complains of exacerbation of depression elicited by depressed mood, lack of energy poor sleep and increased anxiety. She feels overwhelmed and since she lost her prescriber recently and she could not seek outpatient Behavioral Services, she walked into the emergency room asking for help. She verbalized passive suicidal ideation, she was assessed by crisis and transferring to this facility for psychiatric stabilization. At this moment, the patient is able to contract for safety in the unit. Her main complaint is anxiety and poor sleep and she agreed on the changes below. There is no evidence of psychotic symptoms or alok. Past Psychiatric History: Outpatient services, she recently lost her outpatient prescriber and she have had not follow-up , only by her PCP. No prior psychiatric admissions Medical Evaluation Reviewed: Yes [facility] Medical History Depression Fatigue HTN (hypertension) Hyperglycemia Hyperlipidemia Neck pain Surgical History No pertinent past surgical history Family History: Denies Social History: The patient was [facility] and, she was and had 3 children and later her , she immigrated to the [place] with her 3 children and remarried. The patient has a very strong family support by her sister and other relatives. The patient is mostly Serbian speaking but she understands and speaks very well Wolof Substance History: Denies Trauma History: Denies Diagnostics Vital Signs (24Hr): Vital Signs - 24 hr 04/29/21 17:06 04/29/21 22:25 04/30/21 07:55 Temperature 97 F 98.1 F 98.0 F Pulse Rate 77 79 74 Respiratory Rate 18 16 16 Blood Pressure 119/60 125/65 131/60 Pulse Oximetry 96 96 97 BMI result Body Mass Index 26.2 Labs Results: 04/28/21 14:34 04/28/21 14:34 Labs: Laboratory Results - last 48 hr 04/29/21 14:37 COVID-19 ([facility]) Negative COVID-19 Clin Com See Note Meds/Allergies Meds Home Medications Acetaminophen (Acetaminophen 325 Mg Tablet) 650 mg PO Q6H PRN PRN Reason: Headache/Pain Mild Scale (1-3) Al Hydroxide/Mg Hydroxide (Magnesium Hydrox/Alum Hydrox 30 Ml Oral.Susp) 30 ml PO Q6H PRN PRN Reason: Heartburn/Nausea Amlodipine Besylate (Amlodipine Besylate 2.5 Mg Tablet) 2.5 mg PO DAILY [facility]; Protocol Last Admin: 04/30/21 08:28 Dose: 2.5 mg Documented by: Atorvastatin Calcium (Atorvastatin Calcium 40 Mg Tablet) 40 mg PO DAILY [facility] Last Admin: 04/30/21 08:28 Dose: 40 mg Documented by: Duloxetine HCl (Duloxetine Hcl 60 Mg Capsule.Dr) 60 mg PO DAILY [facility] Last Admin: 04/30/21 08:28 Dose: 60 mg Documented by: Hydrochlorothiazide (Hydrochlorothiazide 12.5 Mg Tablet) 12.5 mg PO DAILY [facility] Last Admin: 04/30/21 08:28 Dose: 12.5 mg Documented by: Hydroxyzine HCl (Hydroxyzine Hcl 25 Mg Tablet) 25 mg PO BEDTIME PRN PRN Reason: Anxiety Lisinopril (Lisinopril 20 Mg Tablet) 20 mg PO DAILY [facility] Last Admin: 04/30/21 08:28 Dose: 20 mg Documented by: Magnesium Hydroxide (Milk Of Magnesia 30 Ml Oral.Susp) 30 ml PO DAILY PRN PRN Reason: Constipation Trazodone HCl (Trazodone Hcl 50 Mg Tablet) 50 mg PO BEDTIME PRN PRN Reason: Insomnia Allergies Allergies Allergy/AdvReac Type Severity Reaction Status Date / Time No Known Allergies Allergy Verified 04/28/21 13:16 [No Known Allergies*] Mental Status Exam Mental Status Exam Patient Appearance: Appropriate Patient Orientation: Person and Situation Level of Consciousness: Awake Patient Behavior: Cooperative Mood Description: Depressed Affect Description: Constricted Patient Cognition Impaired: No Ability to Follow Directions: Good Speech Pattern: Clear Memory Description: Intact Delusions: Not Present Thought Process: Linear Thought Content: positive for Circumstantial Depressive Symptoms: Difficulty Sleeping, Changes in Appetite, Feelings of Worthlessness, Unhappiness and Low Self Esteem Judgement: Fair Assessment & Plan Assessment & Plan (1) Major depressive disorder, recurrent: Status: Acute Code(s): F33.9 - Major depressive disorder, recurrent, unspecified Plan The patient is an elderly female with a long history of major depressive disorder, admitted recently due to poor access to outpatient providers and exacerbation of depressive symptoms with neurovegetative symptoms. Plan 1. Continue duloxetine. 2. Start Remeron 7.5 mg p.o. q.h.s. to target insomnia and depression. 3. Gather collateral information Patient educated on: diagnosis and medication risk/benefits Informed Consent: understands Reason for continued inpatient stay Substantial Risk for: harm to self, inability to function, rapid decompensation and med/psych decompensation
[2021-04-30 18:00] VITALS: BP 123/56; PULSE 75; RESP 17; TEMP 36.6; O2SAT 96
[2021-04-30] MEDS: traZODone HCL 50 MG TABLET PO (20:58)
[2021-04-30] MEDS: hydrOXYzine HCL 25 MG TABLET PO (20:58)
[2021-05-01 06:00] VITALS: BP 119/57; PULSE 78; RESP 18; TEMP 36.6; O2SAT 94
[2021-05-01 07:00] VITALS: BMI 26.2
[2021-05-01] MEDS: hydroCHLOROthiazide 12.5 MG TABLET PO (08:44)
[2021-05-01] MEDS: Atorvastatin Calcium 40 MG TABLET PO (08:44)
[2021-05-01] MEDS: lisinopriL 20 MG TABLET PO (08:44)
[2021-05-01] MEDS: DULoxetine HCl 60 MG CAPSULE.DR PO (08:44)
[2021-05-01] MEDS: amLODIPine Besylate 2.5 MG TABLET PO (08:44)
--- NOTE | 2021-05-01 15:22 | HO.PSYCHPN ---
Subjective Subjective Date of Service: 05/01/21 Reason For Visit: SI Subjective Notes: Conditional Voluntary Interim History: The nursing staff reports the patient is pleasant and cooperative. Yesterday her son brought her clothes. She was seen doing exercises in her room. The social science research assistant talk with her daughter and it is clear that the patient needs outpatient prescribers since she lost her last one a few months ago. On interview, the patient reported that she feels tired, she could sleep a little and she agreed to start Remeron at night to target insomnia and dysphoria. No evidence of suicidal ideation at this moment Mental Status Exam Mental Status Exam Patient Appearance: Well Grooomed Patient Orientation: Person and Situation Level of Consciousness: Awake Patient Behavior: Cooperative Mood Description: Depressed Affect Description: Constricted Patient Cognition Impaired: No Ability to Follow Directions: Good Speech Pattern: Clear Memory Description: Intact Hallucinations: None Delusions: Not Present Thought Process: Intact and Linear Thought Content: positive for Circumstantial Judgement: Fair Diagnostics Vital Signs (24Hr): Vital Signs - 24 hr 04/30/21 18:00 05/01/21 06:00 Temperature 97.8 F 97.9 F Pulse Rate 75 78 Respiratory Rate 17 18 Blood Pressure 123/56 L 119/57 L Pulse Oximetry 96 94 BMI result Body Mass Index 26.2 Labs Results: 04/28/21 14:34 04/28/21 14:34 Medications Medications Current Medications Acetaminophen (Acetaminophen 325 Mg Tablet) 650 mg PO Q6H PRN PRN Reason: Headache/Pain Mild Scale (1-3) Al Hydroxide/Mg Hydroxide (Magnesium Hydrox/Alum Hydrox 30 Ml Oral.Susp) 30 ml PO Q6H PRN PRN Reason: Heartburn/Nausea Amlodipine Besylate (Amlodipine Besylate 2.5 Mg Tablet) 2.5 mg PO DAILY [facility]; Protocol Last Admin: 05/01/21 08:44 Dose: 2.5 mg Documented by: Atorvastatin Calcium (Atorvastatin Calcium 40 Mg Tablet) 40 mg PO DAILY [facility] Last Admin: 05/01/21 08:44 Dose: 40 mg Documented by: Duloxetine HCl (Duloxetine Hcl 60 Mg Capsule.) 60 mg PO DAILY [facility] Last Admin: 05/01/21 08:44 Dose: 60 mg Documented by: Hydrochlorothiazide (Hydrochlorothiazide 12.5 Mg Tablet) 12.5 mg PO DAILY [facility] Last Admin: 05/01/21 08:44 Dose: 12.5 mg Documented by: Hydroxyzine HCl (Hydroxyzine Hcl 25 Mg Tablet) 25 mg PO BEDTIME PRN PRN Reason: Anxiety Last Admin: 04/30/21 20:58 Dose: 25 mg Documented by: Lisinopril (Lisinopril 20 Mg Tablet) 20 mg PO DAILY [facility] Last Admin: 05/01/21 08:44 Dose: 20 mg Documented by: Magnesium Hydroxide (Milk Of Magnesia 30 Ml Oral.Susp) 30 ml PO DAILY PRN PRN Reason: Constipation Trazodone HCl (Trazodone Hcl 50 Mg Tablet) 50 mg PO BEDTIME PRN PRN Reason: Insomnia Last Admin: 04/30/21 20:58 Dose: 50 mg Documented by: Allergies Allergies Allergy/AdvReac Type Severity Reaction Status Date / Time No Known Allergies Allergy Verified 04/28/21 13:16 [No Known Allergies*] Assessment & Plan Assessment & Plan (1) Major depressive disorder, recurrent: Status: Acute Code(s): F33.9 - Major depressive disorder, recurrent, unspecified Plan The patient is an elderly female with a long history of major depressive disorder, admitted recently due to poor access to outpatient providers and exacerbation of depressive symptoms with neurovegetative symptoms. Plan 1. Continue duloxetine. 2. Start Remeron 7.5 mg p.o. q.h.s. to target insomnia and depression. 3. Gather collateral information I spent minutes with the patient and/or on the patient floor today, greater than?50% of which was spent counseling/coordinating care. Reason for contiued inpatient stay Substantial Risk for: inability to function, rapid decompensation and med/psych decompensation
[2021-05-01] MEDS: Mirtazapine 7.5 MG TABLET PO (20:13)
[2021-05-01] MEDS: traZODone HCL 50 MG TABLET PO (20:13)
[2021-05-01 20:22] VITALS: BP 136/62; PULSE 81; RESP 16; TEMP 36.6; O2SAT 95
[2021-05-02 06:00] VITALS: BP 125/59; PULSE 72; TEMP 36.9; O2SAT 95
[2021-05-02] MEDS: hydroCHLOROthiazide 12.5 MG TABLET PO (09:39)
[2021-05-02] MEDS: amLODIPine Besylate 2.5 MG TABLET PO (09:39)
[2021-05-02] MEDS: Atorvastatin Calcium 40 MG TABLET PO (09:39)
[2021-05-02] MEDS: lisinopriL 20 MG TABLET PO (09:39)
[2021-05-02] MEDS: DULoxetine HCl 60 MG CAPSULE.DR PO (09:39)
--- NOTE | 2021-05-02 14:08 | P.PNPSI_ITS ---
Subjective Subjective Date of Service: 05/02/21 Reason For Visit: SI Subjective Notes: Conditional Voluntary Interim History: the nursing staff reported the patient has been fully compliant with medications, she is appropriate and she was been visible in the unit. On interview, the patient reported mild over-sedation with mirtazapine but so far she feels better. Mental Status Exam Mental Status Exam Patient Appearance: Well Grooomed Patient Orientation: Person Level of Consciousness: Awake and Appropriate Patient Behavior: Cooperative Mood Description: Depressed Affect Description: Calm Patient Cognition Impaired: No Ability to Follow Directions: Good Speech Pattern: Clear Memory Description: Intact Hallucinations: None Delusions: Not Present Thought Process: Linear Thought Content: positive for Circumstantial Judgement: Fair Diagnostics Vital Signs (24Hr): Vital Signs - 24 hr 05/01/21 20:22 05/02/21 06:00 Temperature 98 F 98.5 F Pulse Rate 81 72 Respiratory Rate 16 Blood Pressure 136/62 125/59 L Pulse Oximetry 95 95 BMI result Body Mass Index 26.2 Labs Results: 04/28/21 14:34 04/28/21 14:34 Medications Medications Current Medications Acetaminophen (Acetaminophen 325 Mg Tablet) 650 mg PO Q6H PRN PRN Reason: Headache/Pain Mild Scale (1-3) Al Hydroxide/Mg Hydroxide (Magnesium Hydrox/Alum Hydrox 30 Ml Oral.Susp) 30 ml PO Q6H PRN PRN Reason: Heartburn/Nausea Amlodipine Besylate (Amlodipine Besylate 2.5 Mg Tablet) 2.5 mg PO DAILY [facility]; Protocol Last Admin: 05/02/21 09:39 Dose: 2.5 mg Documented by: Atorvastatin Calcium (Atorvastatin Calcium 40 Mg Tablet) 40 mg PO DAILY [facility] Last Admin: 05/02/21 09:39 Dose: 40 mg Documented by: Duloxetine HCl (Duloxetine Hcl 60 Mg Capsule.Dr) 60 mg PO DAILY [facility] Last Admin: 05/02/21 09:39 Dose: 60 mg Documented by: Hydrochlorothiazide (Hydrochlorothiazide 12.5 Mg Tablet) 12.5 mg PO DAILY [facility] Last Admin: 05/02/21 09:39 Dose: 12.5 mg Documented by: Hydroxyzine HCl (Hydroxyzine Hcl 25 Mg Tablet) 25 mg PO BEDTIME PRN PRN Reason: Anxiety Last Admin: 04/30/21 20:58 Dose: 25 mg Documented by: Lisinopril (Lisinopril 20 Mg Tablet) 20 mg PO DAILY [facility] Last Admin: 05/02/21 09:39 Dose: 20 mg Documented by: Magnesium Hydroxide (Milk Of Magnesia 30 Ml Oral.Susp) 30 ml PO DAILY PRN PRN Reason: Constipation Mirtazapine (Mirtazapine 7.5 Mg Tablet) 7.5 mg PO BEDTIME [facility] Last Admin: 05/01/21 20:13 Dose: 7.5 mg Documented by: Trazodone HCl (Trazodone Hcl 50 Mg Tablet) 50 mg PO BEDTIME PRN PRN Reason: Insomnia Last Admin: 05/01/21 20:13 Dose: 50 mg Documented by: Allergies Allergies Allergy/AdvReac Type Severity Reaction Status Date / Time No Known Allergies Allergy Verified 04/28/21 13:16 [No Known Allergies*] Assessment & Plan Assessment & Plan (1) Major depressive disorder, recurrent: Status: Acute Code(s): F33.9 - Major depressive disorder, recurrent, unspecified Plan The patient is an elderly female with a long history of major depressive disorder, admitted recently due to poor access to outpatient providers and exacerbation of depressive symptoms with neurovegetative symptoms. Plan 1. Continue duloxetine. 2. Start Remeron 7.5 mg p.o. q.h.s. to target insomnia and depression. 3. Gather collateral information I spent minutes with the patient and/or on the patient floor today, greater than?50% of which was spent counseling/coordinating care. Reason for contiued inpatient stay Substantial Risk for: inability to function, rapid decompensation and med/psych decompensation
[2021-05-02 18:00] VITALS: BP 119/59; PULSE 72; RESP 18; TEMP 36.8; O2SAT 95
[2021-05-02] MEDS: Mirtazapine 7.5 MG TABLET PO (21:00)
[2021-05-03] MEDS: DULoxetine HCl 60 MG CAPSULE.DR PO (08:42)
[2021-05-03] MEDS: amLODIPine Besylate 2.5 MG TABLET PO (08:42)
[2021-05-03] MEDS: Atorvastatin Calcium 40 MG TABLET PO (08:43)
[2021-05-03] MEDS: lisinopriL 20 MG TABLET PO (08:43)
[2021-05-03] MEDS: hydroCHLOROthiazide 12.5 MG TABLET PO (08:43)
[2021-05-03 09:04] VITALS: BP 138/60; PULSE 67; RESP 14; TEMP 36.6; O2SAT 96
[2021-05-03 18:00] VITALS: BP 127/65; PULSE 73; RESP 20; TEMP 36.1; O2SAT 95
--- NOTE | 2021-05-03 20:06 | HO.PSYCHPN ---
Subjective Subjective Date of Service: 05/03/21 Reason For Visit: SI Interim History: Patient seen. Discussed with team. She reports she is still feeling weak and is worried about going home too prematurely. She had a visit with her and daughter. She wants her to apologize to her for him talking about her family and not letting her sister visit her. She is feeling better overall. She said she is not sure she wants to go home or maybe go to her son's or daughter's after discharge. Medication Compliance: Yes Side effects from medications: No Attending Groups: Yes Review of Systems Acute medical concerns: No Review of Systems Review of Systems Constitutional : No Fever, No Chills ENT/Mouth : No Ear Pain, No Nasal Congestion, No sore throat Eyes: No Eye Pain, No Swelling, No Redness Cardiovascular : No Chest Pain, No SOB Respiratory : No Cough, No Sputum, No Dyspnea Gastrointestinal : No Nausea, No Vomiting, No Diarrhea, No Hematochezia, No Melena Genitourinary : No Dysuria, No Urinary Frequency, No Hematuria Musculoskeletal : No Myalgias Skin : No Skin Lesions, No rash Neuro : No Weakness, No Numbness, No Paresthesias, No Dizziness, No Headache Psych : positive Anxiety, positive Depression, positive SI no HI Heme/Lymph: No Lymphadenopathy Endocrine : No Polyuria, No Polydipsia All other systems reviewed and are negative Mental Status Exam Mental Status Exam Narrative: Pleasant, cooperative and calm. Mood is I'm still weak her affect is more reactive. Patient Appearance: Well Grooomed Patient Orientation: Person Level of Consciousness: Awake and Appropriate Patient Behavior: Cooperative Mood Description: Depressed Affect Description: Calm and Appropriate Patient Cognition Impaired: No Ability to Follow Directions: Good Speech Pattern: Clear Memory Description: Intact Hallucinations: None Diagnostics Vital Signs (24Hr): Vital Signs - 24 hr 05/03/21 09:04 Temperature 97.9 F Pulse Rate 67 Respiratory Rate 14 Blood Pressure 138/60 Pulse Oximetry 96 BMI result Body Mass Index 26.2 Labs Results: 04/28/21 14:34 04/28/21 14:34 Medications Medications Current Medications Acetaminophen (Acetaminophen 325 Mg Tablet) 650 mg PO Q6H PRN PRN Reason: Headache/Pain Mild Scale (1-3) Al Hydroxide/Mg Hydroxide (Magnesium Hydrox/Alum Hydrox 30 Ml Oral.Susp) 30 ml PO Q6H PRN PRN Reason: Heartburn/Nausea Amlodipine Besylate (Amlodipine Besylate 2.5 Mg Tablet) 2.5 mg PO DAILY [facility]; Protocol Last Admin: 05/03/21 08:42 Dose: 2.5 mg Documented by: Atorvastatin Calcium (Atorvastatin Calcium 40 Mg Tablet) 40 mg PO DAILY [facility] Last Admin: 05/03/21 08:43 Dose: 40 mg Documented by: Duloxetine HCl (Duloxetine Hcl 60 Mg Capsule.Dr) 60 mg PO DAILY [facility] Last Admin: 05/03/21 08:42 Dose: 60 mg Documented by: Hydrochlorothiazide (Hydrochlorothiazide 12.5 Mg Tablet) 12.5 mg PO DAILY [facility] Last Admin: 05/03/21 08:43 Dose: 12.5 mg Documented by: Hydroxyzine HCl (Hydroxyzine Hcl 25 Mg Tablet) 25 mg PO BEDTIME PRN PRN Reason: Anxiety Last Admin: 04/30/21 20:58 Dose: 25 mg Documented by: Lisinopril (Lisinopril 20 Mg Tablet) 20 mg PO DAILY [facility] Last Admin: 05/03/21 08:43 Dose: 20 mg Documented by: Magnesium Hydroxide (Milk Of Magnesia 30 Ml Oral.Susp) 30 ml PO DAILY PRN PRN Reason: Constipation Mirtazapine (Mirtazapine 7.5 Mg Tablet) 7.5 mg PO BEDTIME [facility] Last Admin: 05/02/21 21:00 Dose: 7.5 mg Documented by: Trazodone HCl (Trazodone Hcl 50 Mg Tablet) 50 mg PO BEDTIME PRN PRN Reason: Insomnia Last Admin: 05/01/21 20:13 Dose: 50 mg Documented by: Allergies Allergies Allergy/AdvReac Type Severity Reaction Status Date / Time No Known Allergies Allergy Verified 04/28/21 13:16 [No Known Allergies*] Assessment & Plan Assessment & Plan (1) Major depressive disorder, recurrent: Status: Acute Code(s): F33.9 - Major depressive disorder, recurrent, unspecified Plan The patient is an elderly female with a long history of major depressive disorder, admitted recently due to poor access to outpatient providers and exacerbation of depressive symptoms with neurovegetative symptoms. Plan 1. Continue duloxetine. 2.Remeron 7.5 mg p.o. q.h.s. to target insomnia and depression. 3. Gather collateral information I spent minutes with the patient and/or on the patient floor today, greater than?50% of which was spent counseling/coordinating care. Reason for contiued inpatient stay Substantial Risk for: inability to function
[2021-05-03] MEDS: Mirtazapine 7.5 MG TABLET PO (20:17)
[2021-05-04 06:00] VITALS: BP 126/60; PULSE 64; RESP 16; TEMP 36.4; O2SAT 16
[2021-05-04] MEDS: amLODIPine Besylate 2.5 MG TABLET PO (08:05)
[2021-05-04] MEDS: Atorvastatin Calcium 40 MG TABLET PO (08:05)
[2021-05-04] MEDS: hydroCHLOROthiazide 12.5 MG TABLET PO (08:06)
[2021-05-04] MEDS: DULoxetine HCl 60 MG CAPSULE.DR PO (08:06)
[2021-05-04] MEDS: lisinopriL 20 MG TABLET PO (08:06)
--- NOTE | 2021-05-04 17:37 | HO.PSYCHPN ---
Subjective Subjective Date of Service: 05/04/21 Reason For Visit: SI Interim History: Patient seen. Discussed with team. She reports feeling better. Feels she may be ready for DC tomorrow. Very pleasant on the unit. No behavioral problems. No SI. Independent in her ADL's. Eating and sleeping well. Review of Systems Review of Systems Constitutional : No Fever, No Chills ENT/Mouth : No Ear Pain, No Nasal Congestion, No sore throat Eyes: No Eye Pain, No Swelling, No Redness Cardiovascular : No Chest Pain, No SOB Respiratory : No Cough, No Sputum, No Dyspnea Gastrointestinal : No Nausea, No Vomiting, No Diarrhea, No Hematochezia, No Melena Genitourinary : No Dysuria, No Urinary Frequency, No Hematuria Musculoskeletal : No Myalgias Skin : No Skin Lesions, No rash Neuro : No Weakness, No Numbness, No Paresthesias, No Dizziness, No Headache Psych : positive Anxiety, positive Depression, positive SI no HI Heme/Lymph: No Lymphadenopathy Endocrine : No Polyuria, No Polydipsia All other systems reviewed and are negative Mental Status Exam Mental Status Exam Narrative: Pleasant, cooperative and calm. Mood is I'm still weak her affect is more reactive. Patient Appearance: Well Grooomed Patient Orientation: Person Level of Consciousness: Awake and Appropriate Patient Behavior: Cooperative Mood Description: Depressed Affect Description: Calm and Appropriate Patient Cognition Impaired: No Ability to Follow Directions: Good Speech Pattern: Clear Memory Description: Intact Diagnostics Vital Signs (24Hr): Vital Signs - 24 hr 05/03/21 18:00 05/04/21 06:00 Temperature 97 F 97.5 F Pulse Rate 73 64 Respiratory Rate 20 16 Blood Pressure 127/65 126/60 Pulse Oximetry 95 16 L BMI result Body Mass Index 26.2 Labs Results: 04/28/21 14:34 04/28/21 14:34 Medications Medications Current Medications Acetaminophen (Acetaminophen 325 Mg Tablet) 650 mg PO Q6H PRN PRN Reason: Headache/Pain Mild Scale (1-3) Al Hydroxide/Mg Hydroxide (Magnesium Hydrox/Alum Hydrox 30 Ml Oral.Susp) 30 ml PO Q6H PRN PRN Reason: Heartburn/Nausea Amlodipine Besylate (Amlodipine Besylate 2.5 Mg Tablet) 2.5 mg PO DAILY [facility]; Protocol Last Admin: 05/04/21 08:05 Dose: 2.5 mg Documented by: Atorvastatin Calcium (Atorvastatin Calcium 40 Mg Tablet) 40 mg PO DAILY [facility] Last Admin: 05/04/21 08:05 Dose: 40 mg Documented by: Duloxetine HCl (Duloxetine Hcl 60 Mg Capsule.) 60 mg PO DAILY [facility] Last Admin: 05/04/21 08:06 Dose: 60 mg Documented by: Hydrochlorothiazide (Hydrochlorothiazide 12.5 Mg Tablet) 12.5 mg PO DAILY [facility] Last Admin: 05/04/21 08:06 Dose: 12.5 mg Documented by: Hydroxyzine HCl (Hydroxyzine Hcl 25 Mg Tablet) 25 mg PO BEDTIME PRN PRN Reason: Anxiety Last Admin: 04/30/21 20:58 Dose: 25 mg Documented by: Lisinopril (Lisinopril 20 Mg Tablet) 20 mg PO DAILY [facility] Last Admin: 05/04/21 08:06 Dose: 20 mg Documented by: Magnesium Hydroxide (Milk Of Magnesia 30 Ml Oral.Susp) 30 ml PO DAILY PRN PRN Reason: Constipation Mirtazapine (Mirtazapine 7.5 Mg Tablet) 7.5 mg PO BEDTIME [facility] Last Admin: 05/03/21 20:17 Dose: 7.5 mg Documented by: Trazodone HCl (Trazodone Hcl 50 Mg Tablet) 50 mg PO BEDTIME PRN PRN Reason: Insomnia Last Admin: 05/01/21 20:13 Dose: 50 mg Documented by: Allergies Allergies Allergy/AdvReac Type Severity Reaction Status Date / Time No Known Allergies Allergy Verified 04/28/21 13:16 [No Known Allergies*] Assessment & Plan Assessment & Plan (1) Major depressive disorder, recurrent: Status: Acute Code(s): F33.9 - Major depressive disorder, recurrent, unspecified Plan The patient is an elderly female with a long history of major depressive disorder, admitted recently due to poor access to outpatient providers and exacerbation of depressive symptoms with neurovegetative symptoms. Plan 1. Continue duloxetine. 2.Remeron 7.5 mg p.o. q.h.s. to target insomnia and depression. 3. Gather collateral information I spent minutes with the patient and/or on the patient floor today, greater than?50% of which was spent counseling/coordinating care. Reason for contiued inpatient stay Substantial Risk for: inability to function
[2021-05-04 19:32] VITALS: BP 117/58; PULSE 77; RESP 17; TEMP 36.3; O2SAT 98
[2021-05-04] MEDS: Acetaminophen 325 MG TABLET 650 MG PO (19:37)
[2021-05-04] MEDS: Mirtazapine 7.5 MG TABLET PO (19:37)
[2021-05-04] MEDS: traZODone HCL 50 MG TABLET PO (19:42)
[2021-05-05 06:00] VITALS: BP 124/60; PULSE 61; RESP 17; TEMP 36.2; O2SAT 96
[2021-05-05] MEDS: lisinopriL 20 MG TABLET PO (08:44)
[2021-05-05] MEDS: Atorvastatin Calcium 40 MG TABLET PO (08:44)
[2021-05-05] MEDS: DULoxetine HCl 60 MG CAPSULE.DR PO (08:44)
[2021-05-05] MEDS: amLODIPine Besylate 2.5 MG TABLET PO (08:44)
[2021-05-05] MEDS: hydroCHLOROthiazide 12.5 MG TABLET PO (08:44)
--- NOTE | 2021-05-05 10:27 | PM.PSYDC ---
DS: Providers Provider Date of Service: 05/05/21 Date of admission: 04/29/21 20:45 Date of discharge: 05/05/21 Primary care physician: Veronica Randhawa MD Consults: 04/28/21 14:22 BHN [Consult to Crisis] Stat Reason for consultation: SI, depression Has provider been notified: Yes Attending physician on discharge: Jimmy Mac DS: Diagnosis Discharge Diagnosis (1) Major depressive disorder, recurrent: Status: Acute DS: Medications Discharge Medications Home Medications: Previous Rx's Medication Instructions Recorded amlodipine 2.5 mg tablet 2.5 mg PO DAILY #90 tab 02/12/21 duloxetine 60 mg capsule,delayed 60 mg PO DAILY #90 cap 02/12/21 release atorvastatin 40 mg tablet 40 mg PO DAILY #90 tab 02/18/21 lisinopril 20 1 tab PO DAILY #90 tab 02/18/21 mg-hydrochlorothiazide 12.5 mg tablet Mental Status Exam Mental Status Exam Patient Appearance: Well Grooomed Patient Orientation: Person, Place and Situation Level of Consciousness: Awake Patient Behavior: Cooperative Mood Description: Depressed Affect Description: Constricted Patient Cognition Impaired: No Ability to Follow Directions: Good Speech Pattern: Clear Memory Description: Intact Hallucinations: None Delusions: Not Present Thought Process: Linear Thought Content: positive for Intact Judgement: Fair Data Data Completed and Pending Completed studies during hospitalization [Text1]: 04/28/21 04/28/21 04/28/21 14:34 14:34 14:34 WBC 10.0 RBC 4.57 Hgb 13.4 Hct 39.8 MCV 87.1 MCH 29.3 MCHC 33.7 RDW 13.1 Plt Count 281 MPV 10.5 Immature Gran % (Auto) 0.4 Neut % (Auto) 68.3 Lymph % (Auto) 23.9 [place] % (Auto) 6.2 Eos % (Auto) 1.0 Baso % (Auto) 0.2 Lymph # (Auto) 2.4 [place] # (Auto) 0.6 Eos # (Auto) 0.1 Baso # (Auto) 0.0 Abs Immat Gran (auto) 0.04 H Absolute Neuts (auto) 6.9 Absolute Nucleated RBC 0.000 Nucleated RBC % (auto) 0.0 Sodium 138 Potassium 3.9 Chloride 103 Carbon Dioxide 28 Anion Gap 11 L BUN 15 Creatinine 0.68 Estim Creat Clear Calc 61.5 Estimated GFR > 60 Random Glucose 132 H Calcium 10.0 D Magnesium 1.9 Total Bilirubin 0.5 Direct Bilirubin 0.2 AST 19 ALT 11 Alkaline Phosphatase 106 Total Protein 6.7 Albumin 4.0 TSH Urine Color Urine Appearance Urine pH Ur Specific [place] Urine Protein Urine Glucose (UA) Urine Ketones Urine Blood Urine Nitrite Ur Leukocyte Esterase Urine RBC Urine WBC Ur Squamous Epith Cells Ur Renal Epithelial Cell Urine Bacteria Urine Opiates Screen Urine Fentanyl Screen Ur Barbiturates Screen Ur Phencyclidine Scrn Ur Amphetamines Screen U Benzodiazepines Scrn Urine Cocaine Screen U Marijuana (THC) Screen Ethyl Alcohol COVID-19 ([facility]) Negative COVID-19 Clin Com See Note 04/28/21 04/28/21 04/28/21 14:34 14:34 14:34 WBC RBC Hgb Hct MCV MCH MCHC RDW Plt Count MPV Immature Gran % (Auto) Neut % (Auto) Lymph % (Auto) [place] % (Auto) Eos % (Auto) Baso % (Auto) Lymph # (Auto) [place] # (Auto) Eos # (Auto) Baso # (Auto) Abs Immat Gran (auto) Absolute Neuts (auto) Absolute Nucleated RBC Nucleated RBC % (auto) Sodium Potassium Chloride Carbon Dioxide Anion Gap BUN Creatinine Estim Creat Clear Calc Estimated GFR Random Glucose Calcium Magnesium Total Bilirubin Direct Bilirubin AST ALT Alkaline Phosphatase Total Protein Albumin TSH 0.91 Urine Color YELLOW Urine Appearance CLEAR Urine pH 6.0 Ur Specific [place] 1.010 Urine Protein NEG Urine Glucose (UA) NEG Urine Ketones NEG Urine Blood TRACE Urine Nitrite NEG Ur Leukocyte Esterase 1+ H Urine RBC 0-2 Urine WBC 1-4 Ur Squamous Epith Cells TRACE Ur Renal Epithelial Cell TRACE Urine Bacteria NONE Urine Opiates Screen Urine Fentanyl Screen Ur Barbiturates Screen Ur Phencyclidine Scrn Ur Amphetamines Screen U Benzodiazepines Scrn Urine Cocaine Screen U Marijuana (THC) Screen Ethyl Alcohol < 10 COVID-19 ([facility]) COVID-19 Clin Com 04/28/21 04/29/21 14:34 14:37 WBC RBC Hgb Hct MCV MCH MCHC RDW Plt Count MPV Immature Gran % (Auto) Neut % (Auto) Lymph % (Auto) [place] % (Auto) Eos % (Auto) Baso % (Auto) Lymph # (Auto) [place] # (Auto) Eos # (Auto) Baso # (Auto) Abs Immat Gran (auto) Absolute Neuts (auto) Absolute Nucleated RBC Nucleated RBC % (auto) Sodium Potassium Chloride Carbon Dioxide Anion Gap BUN Creatinine Estim Creat Clear Calc Estimated GFR Random Glucose Calcium Magnesium Total Bilirubin Direct Bilirubin AST ALT Alkaline Phosphatase Total Protein Albumin TSH Urine Color Urine Appearance Urine pH Ur Specific [place] Urine Protein Urine Glucose (UA) Urine Ketones Urine Blood Urine Nitrite Ur Leukocyte Esterase Urine RBC Urine WBC Ur Squamous Epith Cells Ur Renal Epithelial Cell Urine Bacteria Urine Opiates Screen Not Detected Urine Fentanyl Screen Not Detected Ur Barbiturates Screen Not Detected Ur Phencyclidine Scrn Not Detected Ur Amphetamines Screen Not Detected U Benzodiazepines Scrn Not Detected Urine Cocaine Screen Not Detected U Marijuana (THC) Screen Not Detected Ethyl Alcohol COVID-19 ([facility]) Negative COVID-19 Clin Com See Note 04/28/21 00:00 Urine clean catch - Urine botello top Urine Culture - Final DS: Summary Hospital Course Hospital Course: the patient was admitted into the hospital from the emergency room after she disclosed exacerbation of depressive symptoms in the context of family problems. Please see HPI of the admission note for for her details. On admission, the patient was assessed by the team and she denied active suicidal ideation but she admitted exacerbation of her depressive symptoms elicited by depressed mood, anhedonia, lack of energy, poor sleep and increased anxiety. The patient has been on Cymbalta for several years and she has lost recently her prescriber. Since the main problem the patient was mostly poor sleep and anxiety she agreed to add mirtazapine titrated up to 7.5 mg p.o. q.h.s.. The patient initially had mild over-sedation but later she adopted very well and tolerated the medication without any symptoms. The patient did not have active suicidal ideation or safety concerns. The patient was able to participate on therapeutic activities in the facility, she was able to contract for safety and since there were no safety concerns discharge planning was discussed. Time spent discussing smoking cessation with patient: 3 to 10 minutes Status at Discharge Cognitive/behavioral status at discharge: at baseline Functional status at discharge: independent ambulation Overall status at discharge: patient is back to baseline Time Spent with Patient Time attestation: Total time spent providing and/or coordinating discharge services: Discharge Plan Discharge Patient Disposition: Home, Self-Care Discharge Diagnosis: Major depressive disorder recurrent episode Referrals: ANNEMARIE Shankar [facility] [Other] - 05/07/21 1:00 pm (Your first counseling appointment with Jessica is 05/07/21 at 1:00PM. Jessica will provide home visit counseling sessions. Jessica will contact you prior to home visit on 05/07/21. ) Geovanna Davis NP [Other] - 05/08/21 1:00 pm (Your first psychiatry appointment with Geovanna Davis geriatric nurse practitioner is scheduled for 05/08/21 at 1300. This appointment will be telehealth.) Veronica Randhawa MD [Primary Care Provider] - 2 days ( as needed) Discharge Medications: New trazodone 50 mg Tablet 50 mg PO BEDTIME PRN (Reason: Insomnia) 30 Days Qty: 30 0RF mirtazapine 7.5 mg Tablet 7.5 mg PO BEDTIME 30 Days Qty: 30 0RF Continued amlodipine 2.5 mg tablet 2.5 mg PO DAILY Qty: 90 0RF lisinopril-hydrochlorothiazide 20-12.5 mg tablet 1 tab PO DAILY Qty: 90 3RF atorvastatin 40 mg tablet 40 mg PO DAILY Qty: 90 3RF duloxetine 60 mg capsule,delayed release(DR/EC) 60 mg PO DAILY 30 Days Qty: 90 0RF Discharge Orders: Discharge Order (Routine); Ordered 05/05/21 Ordered By: Jimmy Mac Diet: advance to usual diet Activity on Discharge: As tolerated Stand Alone Forms: Patient Portal Discharge page Activity Restrictions/Additional Instructions: you were seen by our social workers and plan was to discharge to home with outpatient resources return for any safety concerns Care Plan Goals: care plan goals achieved in this hospitalization Health Concerns: continue treatment with the primary care physician Plan of Treatment: the patient was referred for medication management and psychotherapy as an outpatient Assessment: elderly female with a long history of depression that was exacerbated in the last weeks due to conflicts in her family. The patient main complaint was poor sleep that resolved with Remeron. Her anxiety and dysphoria improved at this moment she is safe and she is able to continue treatment as outpatient. Patient Instructions: Depression (DC)
--- NOTE | 2021-05-05 16:56 | PC.NURSE ---
Pt reports she is aware of discharge plan, is in agreement with plan. The pt denies SI;HI;AH;VH. The pt reports she feels safe with discharge plan. Paperwork reviewed with the pt. Patient verbalized understanding. Follow up appointment reviewed with Pt. Patient was accompanied with belongings in the front of the building per hospital policy.
== END 2021-05-05 16:40 | disposition home or self-care (01) | DRG 885 ==
LOC: HO.ED 04-29 11:39 → HO.PGERI 04-29 20:46
PROVIDERS: Nurse Practitioner Family; Admitting Provider Psychiatry & Neurology Psychiatry; Emergency Provider Emergency Medicine; PCP Internal Medicine; Visit Provider Psychiatry & Neurology Psychiatry
DX: F33.9 Major depressive disorder, recurrent, unspecified (principal); Z20.822 Contact with and (suspected) exposure to COVID-19; Z23 Encounter for immunization; Z79.899 Other long term (current) drug therapy
CPT/HCPCS: 36415; 80048; 80076; 80307; 81001; 82077; 83735; 84443; 85025; 87086; 87635; 90686; 93005; 99285; Q0163

== ENCOUNTER 2021-05-29 10:27 | Outpatient (REF) | payer MEDICARE, SELFPAY ==
--- NOTE | ~2021-05-29 | XR_ITS ---
EXAMINATION: XR CERVICAL SPINE CLINICAL INFORMATION: Cervicalgia COMPARISON: None TECHNIQUE: 3 views of the cervical spine were obtained. FINDINGS: There is no fracture or subluxation. Vertebral body height and alignment maintained. Disc space narrowing throughout the cervical spine with small endplate osteophytes. Mild facet arthropathy. The lung apices are clear. The prevertebral soft tissues are unremarkable. The atlantoaxial joint is well aligned. XR/XR cervical spine 3V IMPRESSION: Moderate degenerative changes throughout the cervical spine.
[2021-05-29 11:51] LABS: Hematocrit 42.9 % (37.0-47.0); Mean Corpuscular HGB Conc 32.6 g/dl (31.0-35.0); Mean Corpuscular Hemoglobin 29.2 pg (27.0-33.0); Mean Corpuscular Volume 89.4 fL (80.0-98.0); Mean Platelet Volume 11.1 fL (9.4-12.3); Platelet Count 271 X10*3/uL (160-400); Red Cell Distribution Width 13.3 % (11.0-16.0); White Blood Count 7.9 X10*3/uL (4.8-10.8)
[2021-05-29 12:00] LABS: Estimated Average Glucose 123 mg/dL; Hemoglobin A1C 150.2216 umol/L; Hemoglobin A1c % 5.9 %
[2021-05-29 12:23] LABS: Alanine Aminotransferase 14 U/L (0-31); Albumin Level 4.1 g/dL (3.5-5.0); Alkaline Phosphatase 110 U/L (39-117); Anion Gap 10 (12-20); Aspartate Amino Transferase 18 U/L (5-31); Bilirubin Total 0.5 mg/dL (0.0-1.0); Blood Urea Nitrogen 15 mg/dL (9-16); Calcium 9.6 mg/dL (8.4-10.2); Carbon Dioxide 28 mmol/L (22-29); Chloride 105 mmol/L (96-108); Cholesterol 229 mg/dL; Estimated Glomerular Filt Rate > 60; Glucose Fasting 109 mg/dL (60-99); HDL Cholesterol 65 mg/dL; Iron 137 mcg/dL (30-160); LDL Cholesterol Calculated 130 mg/dl; Percent Iron Saturation 41 % (15-50); Potassium 4.4 mmol/L (3.3-5.1); Sodium 139 mmol/L (135-145); Total Iron Binding Capacity 331 mcg/dL (228-428); Total Protein 6.9 g/dL (6.5-8.0); Triglycerides 172 mg/dL; Unsaturated Iron Binding 194 ug/dL
[2021-05-29 12:32] LABS: TSH reflex Free T4 0.72 uIU/mL (0.32-4.0); Vitamin D 25-OH Total 68.4 ng/mL (>30)
[2021-05-29 13:09] LABS: Vitamin B12 552 pg/mL (200-900)
== END 2021-05-29 10:28 | disposition home or self-care (01) ==
LOC: HO.HMGCLDS 10:27
PROVIDERS: Visit Provider Internal Medicine
DX: R73.9 Hyperglycemia, unspecified (principal); M54.2 Cervicalgia; E78.5 Hyperlipidemia, unspecified; I10 Essential (primary) hypertension; F33.9 Major depressive disorder, recurrent, unspecified; E53.8 Deficiency of other specified B group vitamins; E55.9 Vitamin D deficiency, unspecified
CPT/HCPCS: 36415; 72040; 80053; 80061; 82306; 82607; 82746; 83036; 83540; 84443; 85027

== ENCOUNTER → 2021-08-22 09:28 | Outpatient (BNVA) | payer MEDICARE, SELFPAY | PROVIDERS: PCP Internal Medicine; Visit Provider Nurse Practitioner Family | DX: M47.812 Spondylosis without myelopathy or radiculopathy, cervical region (principal); M79.18 Myalgia, other site | CPT/HCPCS: 99202 ==

== ENCOUNTER 2022-04-22 09:36 | Outpatient (REF) | payer MEDICARE, SELFPAY ==
[2022-04-22 11:24] LABS: MANUAL DIFF FLAG NO
[2022-04-22 11:42] LABS: Basophils Absolute Auto 0.1 X10*3/uL (0.0-0.2); Basophils Percent Auto 0.7 % (0-2); Eosinophils Absolute Auto 0.3 X10*3/uL (0.0-0.4); Eosinophils Percent Auto 3.8 % (0-4); Hemoglobin 13.7 g/dl (12.0-16.0); Imm Gran Abs Auto 0.01 X10*3/uL (0.00-0.03); Imm Gran Pct Auto 0.1 % (0.0-0.4); Lymphocytes Percent Auto 39.5 % (20-40); Mean Corpuscular HGB Conc 32.6 g/dl (31.0-35.0); Mean Corpuscular Hemoglobin 29.2 pg (27.0-33.0); Mean Corpuscular Volume 89.6 fL (80.0-98.0); Mean Platelet Volume 11.3 fL (9.4-12.3); Monocytes Absolute Auto 0.4 X10*3/uL (0.1-1.2); Monocytes Percent Auto 5.7 % (2-11); Neutrophils Absolute Auto 3.9 x10*3/uL (2.0-8.3); Neutrophils Percent Auto 50.2 % (45-73); Platelet Count 245 X10*3/uL (160-400); Red Blood Count 4.69 X10*6/uL (4.20-5.50); Red Cell Distribution Width 12.7 % (11.0-16.0); White Blood Count 7.7 X10*3/uL (4.8-10.8)
[2022-04-22 12:03] LABS: Estimated Average Glucose 126 mg/dL
[2022-04-22 12:10] LABS: Alanine Aminotransferase 16 U/L (0-31); Alkaline Phosphatase 106 U/L (39-117); Anion Gap 11 (12-20); Aspartate Amino Transferase 21 U/L (5-31); Bilirubin Total 0.7 mg/dL (0.0-1.0); Blood Urea Nitrogen 16 mg/dL (9-16); Calcium 9.6 mg/dL (8.4-10.2); Carbon Dioxide 31 mmol/L (22-29); Chloride 105 mmol/L (96-108); Cholesterol 192 mg/dL; Estimated Glomerular Filt Rate > 60; Glucose Fasting 108 mg/dL (60-99); HDL Cholesterol 63 mg/dL; LDL Cholesterol Calculated 98 mg/dl; Potassium 4.1 mmol/L (3.3-5.1); Sodium 143 mmol/L (135-145); Total Protein 6.5 g/dL (6.5-8.0); Triglycerides 155 mg/dL
== END 2022-04-22 09:37 | disposition home or self-care (01) ==
LOC: HO.HMGCLDS 09:36
PROVIDERS: PCP Internal Medicine; Visit Provider Internal Medicine
DX: M47.812 Spondylosis without myelopathy or radiculopathy, cervical region (principal); I10 Essential (primary) hypertension; R73.9 Hyperglycemia, unspecified; E78.5 Hyperlipidemia, unspecified
CPT/HCPCS: 36415; 80053; 80061; 83036; 85025

== ENCOUNTER 2022-10-22 10:54 | Outpatient (AMB) | payer MEDICARE, SELFPAY ==
[2022-10-22 11:00] VITALS: BP 148/68; PULSE 67; O2SAT 97; BMI 26.0
--- NOTE | 2022-10-22 11:00 | A.OFFPC_ITS ---
Vital Signs 10/22/22 11:00 Height 5 ft 2 in Weight 142 lb 4 oz BMI 26.0 BP 148/68 H Blood Pressure Location Lt brachial Position Sitting Pulse 67 Pulse Source Pulse Oximeter Pulse Oximetry (%) 97 Oxygen Delivery Method Room Air Intake Visit Reasons: 6m HTN Allergies No Known Allergies [No Known Allergies*] Allergy (Verified 10/22/22 11:01) Medication List - Last Reconciled 10/22/22 by Veronica Randhawa MD acetaminophen 1,000 mg (2 x 500 mg) PO Q8H PRN 30 days amlodipine 2.5 mg PO DAILY atorvastatin 40 mg PO DAILY duloxetine 60 mg PO DAILY lidocaine 5% 1 patch topical DAILY 30 days lisinopril-hydrochlorothiazide 20-12.5 mg 1 tab PO DAILY meloxicam 15 mg PO DAILY mirtazapine 7.5 mg PO BEDTIME 90 days tizanidine 2 mg PO TID PRN 30 days Tobacco use date assessed: 10/22/22 Fall risk assessment: No Falls in past year Last assessed Fall Risk: 10/22/22 Dental Screening Dental Screen Date: 10/22/22 Did you have a dental visit in the last 12 months?: Yes Did you have a dental problem in the last 6 months where you did not have access to dental care?: No Was dental information given to patient?: No HPI 6m HTN HPI Details Pt presents for f/u HTN and depression, stable on meds PFSH Medical History Anxiety Depression Fatigue HTN (hypertension) Hyperglycemia Hyperlipidemia Neck pain Vitamin B 12 deficiency Vitamin D deficiency Surgical History No pertinent past surgical history Family History Father No problems noted. Mother Heart problem Social History Household Members: Spouse Housing: House Do you presently have visiting nurse or other home services: No Patient Tobacco Use Status: Never used Tobacco e-Cigarette/Vaping Use: Never Used service: No Current occupational status: retired Sexual orientation: Straight/Heterosexual Cognitive needs: No Hearing needs: No Vision needs: No Questionnaire Thrive Questionnaire Date Thrive assessed: 05/29/21 AUDIT C Alcohol Use Questionnaire (AUDIT-C) 1. How often do you have a drink containing alcohol?: Never 3. How often do you have six or more drinks on one occasion?: Never Total Score: 0 Score Reviewed/Action Taken: Yes YUDITH-7 AMB Questionnaire YUDITH-7 Date YUDITH - 7 assessed: 05/29/21 Source: Developed by Drs. Isaias Rousseau, Aria Bautista, Malik Foster and colleagues, with an educational rachelle from [employer]. Review of Systems Const All systems reviewed & are unremarkable except as noted in HPI and below Reports no additional complaints ENT Reports no additional complaints Card Reports no additional complaints Resp Reports no additional complaints GI Reports no additional complaints Reports no additional complaints Physical exam (Primary Care) Vital Signs: Last Vital Signs Pulse 67 10/22/22 11:00 BP 148/68 H 10/22/22 11:00 Pulse Ox 97 10/22/22 11:00 Oxygen Delivery Method Room Air 10/22/22 11:00 BMI result Body Mass Index 26.0 Tobacco/Smoking Status: Tobacco use Status Tobacco use date assessed 10/22/22 10/22/22 11:02 Patient Tobacco Use Status Never used Tobacco 10/22/22 11:02 e-Cigarette/Vaping Use Never Used 10/22/22 11:02 Thrive Assessment: Date of Thrive Assessment Date Thrive assessed 05/29/21 10/22/22 11:02 Const General: no acute distress HENMT Head: Yes normal to inspection Mouth: Normal oral and palatal mucosa present Eyes General: appearance normal, both eyes and all related structures Resp Effort & Inspection: normal respiratory effort Auscultation: clear to auscultation bilaterally Cardio Rhythm: regular rhythm Heart sounds: S1 normal heart sound present and S2 normal heart sound present GI Inspection: Yes normal to inspection Palpation (GI): Soft to palpation Auscultation: normal bowel sounds Assessment and Plan Assessment & Plan (1) Major depressive disorder, recurrent: Comment: in remission Code(s): F33.9 - Major depressive disorder, recurrent, unspecified Plan: cont meds (2) Hyperglycemia: Code(s): R73.9 - Hyperglycemia, unspecified (3) Hyperlipidemia: Code(s): E78.5 - Hyperlipidemia, unspecified Plan: cont statin (4) HTN (hypertension): Code(s): I10 - Essential (primary) hypertension Plan: cont meds, low Na diet, f/u in 2 months Coding Level of Care Code Est Pt Level 4 (33104) Diagnoses Major depressive disorder, recurrent F33.9 Hyperglycemia R73.9 Hyperlipidemia E78.5 HTN (hypertension) I10
== END 2022-10-22 13:51 | disposition home or self-care (01) ==
PROVIDERS: Visit Provider Internal Medicine
DX: F33.9 Major depressive disorder, recurrent, unspecified (principal); R73.9 Hyperglycemia, unspecified; E78.5 Hyperlipidemia, unspecified; I10 Essential (primary) hypertension
CPT/HCPCS: 99214

== ENCOUNTER 2022-11-02 10:31 | Outpatient (REF) | payer MEDICARE, SELFPAY ==
[2022-11-02 13:31] LABS: MANUAL DIFF FLAG NO
[2022-11-02 13:46] LABS: Basophils Absolute Auto 0.1 X10*3/uL (0.0-0.2); Basophils Percent Auto 0.7 % (0-2); Eosinophils Absolute Auto 0.3 X10*3/uL (0.0-0.4); Eosinophils Percent Auto 4.4 % (0-4); Hematocrit 42.5 % (37.0-47.0); Hemoglobin 13.8 g/dl (12.0-16.0); Imm Gran Abs Auto 0.02 X10*3/uL (0.00-0.03); Imm Gran Pct Auto 0.3 % (0.0-0.4); Lymphocytes Absolute Auto 2.7 X10*3/uL (1.2-4.9); Lymphocytes Percent Auto 36.6 % (20-40); Mean Corpuscular HGB Conc 32.5 g/dl (31.0-35.0); Mean Corpuscular Hemoglobin 28.7 pg (27.0-33.0); Mean Corpuscular Volume 88.4 fL (80.0-98.0); Mean Platelet Volume 11.5 fL (9.4-12.3); Monocytes Absolute Auto 0.4 X10*3/uL (0.1-1.2); Monocytes Percent Auto 5.4 % (2-11); Neutrophils Absolute Auto 3.9 x10*3/uL (2.0-8.3); Neutrophils Percent Auto 52.6 % (45-73); Platelet Count 286 X10*3/uL (160-400); Red Blood Count 4.81 X10*6/uL (4.20-5.50); Red Cell Distribution Width 13.2 % (11.0-16.0); White Blood Count 7.4 X10*3/uL (4.8-10.8)
[2022-11-02 14:09] LABS: Estimated Average Glucose 117 mg/dL; Hemoglobin A1c % 5.7 %
[2022-11-02 14:21] LABS: Alanine Aminotransferase 21 U/L (0-31); Albumin Level 3.8 g/dL (3.5-5.0); Alkaline Phosphatase 121 U/L (39-117); Anion Gap 12 (12-20); Aspartate Amino Transferase 24 U/L (5-31); Bilirubin Total 0.4 mg/dL (0.0-1.0); Blood Urea Nitrogen 11 mg/dL (9-16); Calcium 9.8 mg/dL (8.4-10.2); Carbon Dioxide 26 mmol/L (22-29); Chloride 107 mmol/L (96-108); Cholesterol 179 mg/dL; Estimated Glomerular Filt Rate > 60; Glucose Fasting 111 mg/dL (60-99); HDL Cholesterol 60 mg/dL; LDL Cholesterol Calculated 103 mg/dl; Sodium 141 mmol/L (135-145); Total Protein 6.8 g/dL (6.5-8.0); Triglycerides 84 mg/dL
[2022-11-02 14:28] LABS: TSH reflex Free T4 1.08 uIU/mL (0.32-4.0)
== END 2022-11-02 10:32 | disposition home or self-care (01) ==
LOC: HO.HMGCLDS 10:31
PROVIDERS: PCP Internal Medicine; Visit Provider Internal Medicine
DX: I10 Essential (primary) hypertension (principal); R73.9 Hyperglycemia, unspecified; E78.5 Hyperlipidemia, unspecified
CPT/HCPCS: 36415; 80053; 80061; 83036; 84443; 85025

== ENCOUNTER 2023-04-26 12:52 | Outpatient (AMB) | payer MEDICARE, SELFPAY ==
[2023-04-26 13:12] VITALS: BP 126/76; PULSE 72; O2SAT 96; BMI 28.9
--- NOTE | 2023-04-26 13:12 | AM.OFFVISMDC ---
Intake Vital Signs 04/26/23 13:12 Height 5 ft 2 in Weight 158 lb BMI 28.9 BP 126/76 Blood Pressure Location Lt brachial Position Sitting Pulse 72 Pulse Source Pulse Oximeter Pulse Oximetry (%) 96 Oxygen Delivery Method Room Air Intake Visit Reasons: AWV Allergies No Known Allergies [No Known Allergies*] Allergy (Verified 04/26/23 13:36) Medication List - Last Reconciled 04/26/23 by Veronica Randhawa MD acetaminophen 1,000 mg (2 x 500 mg) PO Q8H PRN 30 days amlodipine 2.5 mg PO DAILY atorvastatin 40 mg PO DAILY duloxetine 60 mg PO DAILY lidocaine 5% 1 patch topical DAILY 30 days lisinopril-hydrochlorothiazide 20-12.5 mg 1 tab PO DAILY meloxicam 15 mg PO DAILY mirtazapine 7.5 mg PO BEDTIME 90 days tizanidine 2 mg PO TID PRN 30 days HPI AWV HPI Details Pt presents for annual visit.Initiated the conversation about Advanced Directives. Advanced Directives help? patients prepare for current and future decisions about their medical treatment? and place of care. Discussed with patient that it is a process where a patients? current condition and prognosis are reviewed, their wishes for information? regarding their illness are elicited, and likely medical dilemmas are presented? and options discussed. The form can be amended as needed, reviewed yearly and? make changes as needed IPPE/AWV ? year old presents? for her ? Annual? Wellness Visit, initial visit.? Medical / Social History Reviewed? Past Medical History ?Yes? . ? [place]? of Care / Care Team list updated ?Yes . ? Surgical/Hospitalization? History ?Yes . ? Current Medications? (including OTC and supplements) ?Yes . ? Family History ?Yes? . ? Tobacco? Control form ?Yes . ? AUDIT-C (Alcohol use) form? ?Yes . ? Illicit drug use in Social? History ?Yes . ? Current diagnosis of? depression? ?No ? Appropriate PHQ2/PHQ9? completed ?Yes . ? Data entered by ?Medical? Financial Advisor Trainee and reviewed by provider ? Fall Risk ? Fall? History? Have you had any falls with? injury in the past year? ?No . ? Have you had two or more? falls in the past year? ?No . ? Fall Risk Assessment: ?No? falls in the past year . ? HRA filled out by? the patient, reviewed by Provider and scanned. ? IPPE/AWV ? Balance? [place]? ?Yes . ? Tandem? walk ?Yes . ? Walk and? Turn ?Yes . ? Rise from? sit to stand ?Yes . ?Vision? Corrective? lens ?Yes ? Vision? screen ? Up-to-date, has an appointment [] for vision? screening and glaucoma screening ?Hearing? Whisper? test ?pass .? Initiated the conversation about Advanced Directives. Advanced Directives help? patients prepare for current and future decisions about their medical treatment? and place of care. Discussed with patient that it is a process where a patients? current condition and prognosis are reviewed, their wishes for information? regarding their illness are elicited, and likely medical dilemmas are presented? and options discussed. The form can be amended as needed, reviewed yearly and? make changes as needed Written? Plan?Completed. See Patient? Documents. [facility] Medical History Anxiety Depression Fatigue HTN (hypertension) Hyperglycemia Hyperlipidemia Neck pain Vitamin B 12 deficiency Vitamin D deficiency Surgical History No pertinent past surgical history Family History (Updated 04/26/23 @ 13:42 by MARCOS Sanches) Father No problems noted. Mother Heart problem Social History Household Members: Spouse Housing: House Do you presently have visiting nurse or other home services: No Comment: pt observed ambulating independently w/strong and steady gait. Patient Tobacco Use Status: Never used Tobacco e-Cigarette/Vaping Use: Never Used service: No Current occupational status: retired Sexual orientation: Straight/Heterosexual Cognitive needs: No Hearing needs: No Vision needs: No Questionnaire Medicare Wellness Checkup [age] What gender do you identify with?: female During the past 4 weeks, how much have you been bothered by emotional problems such as feeling anxious, depressed, irritable, sad or downhearted, and blue?: not at all During the past 4 weeks, has your physical & emotional health limited your social activities with family, friends, neighbors, or groups?: not at all During the past 4 weeks, how much bodily pain have you generally had?: very mild pain During the past 4 weeks, was someone available to help you if you needed & wanted help?: yes, as much as I wanted During the past 4 weeks, what was the hardest physical activity you could do for at least 2 minutes?: heavy Can you get to places out of walking distance without help? (For eg., can you travel alone on buses, taxis or drive your car?): Yes Can you go shopping for groceries or clothes without someone's help?: Yes Can you prepare your own meals?: Yes Can you do your housework without help?: Yes Because of any health problems, do you need the help of another person with your personal care needs such as eating, bathing, dressing or getting around the house?: No Can you handle your own money without help?: Yes During the past 4 weeks, how would you rate your health in general?: very good During the past 4 weeks how have things been going for you?: very well; could hardly better Are you having difficulties driving your car?: no Do you always fasten your seat belt when you are in a car?: yes, usually During past 4 weeks, have you been bothered by the following: never: Falling or dizzy when standing up, Sexual problems?, Trouble eating well?, Teeth or denture problems?, Problems using the telephone? and Tiredness or fatigue? Have you fallen 2 or more times in the past year?: No Are you afraid of falling?: No Are you a smoker?: no During the past 4 weeks, how many drinks of wine, beer, or other alcoholic beverages did you have?: no alcohol at all Do you exercise for about 20 minutes 3 or more times a week?: yes, some of the time Have you been given information to help with the following?: no: Hazards in your house that might hurt you? and no: Keeping track of your medications? How often do you have trouble taking medicines the way you have been told to take them?: I always take medicine as prescribed How confident are you that you can control & manage most of your health problems?: very confident What is your race?: White Mini Mental State Exam (MMSE) Orientation What is the (year) (season) (date) (day) (month)?: year, season, date, day and month Where are we (state) (county) (town or city) (hospital) (floor)?: state, county, town or city, hospital/clinic and floor Registration Name of 3 unrelated objects clearly and slowly, then ask patient to repeat all 3 of them. (1st repeat determines score. Make sure they can repeat all three): object 1, object 2 and object 3 Attention & Calculation (CHOOSE ONE) Spell WORLD backwards (DLROW): 5 letters Recall Ask patient to repeat the 3 items from question #3.: object 1, object 2 and object 3 Language Show patient a wristwatch & ask what it is. Repeat for pencil.: watch and pencil Ask the patient to repeat the phrase 'No ifs, ands, or buts' after you.: correct Ask the patient to 'take a piece of paper with their right hand' 'fold paper in half' 'place paper on floor': take paper in right hand, fold paper in half and place paper on floor Print the sentence 'CLOSE YOUR EYES' on a piece. If patient actually closes eyes then score.: followed written direction Give patient a blank piece of paper & ask to write a sentence. Score if it contains a noun & verb.: sentence contains subject and verb Score Score: 29 Activity of Daily Living Bathing - sponge bath, tub bath or shower: receives no assistance (gets in/out by self, if usual bathing means Dressing - getting clothes from closets & drawers, including inner/outer garments & fasteners.: gets clothes & gets completely dressed without help Toileting - going to the 'toilet room' for urine/bowel elimination & cleaning self/arranging clothes: goes to toilet room, cleans self, arranges clothes without help Transfer: moves in & out of bed and chair without help (may use support object) Continence: controls urination/bowel movements completely by self Feeding: feeds self without help Total Score: 0 Information obtained from: patient Using telephone: independent Traveling: independent Shopping: independent Preparing meals: independent Housework: independent Taking medicine: independent Managing money: independent PHQ-9 Over the last 2 weeks, how often have you been bothered by any of the following problems? 1. Little interest or pleasure in doing things: not at all 2. Feeling down, depressed, or hopeless: not at all 3. Trouble falling or staying asleep, or sleeping too much: not at all 4. Feeling tired or having little energy: not at all 5. Poor appetite or overeating: not at all 6. Feeling bad about yourself - or that you are a failure or have let yourself or your family down: not at all 7. Trouble concentrating on things, such as reading the newspaper or watching television: not at all 8. Moving or speaking so slowly that other people could have noticed. Or the opposite - being so fidgety or restless that you have been moving around a lot more than usual: not at all 9. Thoughts that you would be better off or of hurting yourself in some way: not at all Total score: 0 Depression Screening Interpretation: Negative Depression Screening Done: Yes Source: Developed by Drs. Isaias Rousseau, Aria Bautista, Malik Foster and colleagues, with an educational rachelle from [employer]. Review of Systems Const All systems reviewed & are unremarkable except as noted in HPI and below Reports no additional complaints Eyes Reports no additional complaints ENT Reports no additional complaints Card Reports no additional complaints Resp Reports no additional complaints GI Reports no additional complaints Reports no additional complaints Physical Exam Vital Signs: Last Vital Signs Pulse 72 04/26/23 13:12 BP 126/76 04/26/23 13:12 Pulse Ox 96 04/26/23 13:12 Oxygen Delivery Method Room Air 04/26/23 13:12 BMI result Body Mass Index 28.9 Const General: no acute distress HEENT Head: Yes normal to inspection Ears: hearing grossly normal bilaterally Resp Effort & Inspection: normal respiratory effort Auscultation: clear to auscultation bilaterally Cardio Rhythm: regular rhythm Heart sounds: S1 normal heart sound present and S2 normal heart sound present GI Inspection: Yes normal to inspection Palpation (GI): Soft to palpation Percussion: Yes normal to percussion Auscultation: normal bowel sounds Extrem General: Yes no clubbing, cyanosis or edema Assessment & Plan Assessment & Plan (1) Hyperlipidemia: Code(s): E78.5 - Hyperlipidemia, unspecified Plan: Continue statin (2) Hyperglycemia: Code(s): R73.9 - Hyperglycemia, unspecified Plan: Continue ADA diet increase physical activity weight loss discussed with the patient. Check A1c today and in 6 months (3) HTN (hypertension): Code(s): I10 - Essential (primary) hypertension Plan: Continue current medications (4) Major depressive disorder, recurrent: Comment: in remission Code(s): F33.9 - Major depressive disorder, recurrent, unspecified Plan: Continue current medications Orders: Orders Comprehensive [place]. Panel Fast Today E78.5 - Hyperlipidemia, unspecified, I10 - Essential (primary) hypertension, R73.9 - Hyperglycemia, unspecified Hemoglobin A1c Today E78.5 - Hyperlipidemia, unspecified, I10 - Essential (primary) hypertension, R73.9 - Hyperglycemia, unspecified Complete Blood Count Auto Diff 6 Months E55.9 - Vitamin D deficiency, unspecified, E78.5 - Hyperlipidemia, unspecified, F33.9 - Major depressive disorder, recurrent, unspecified, I10 - Essential (primary) hypertension, R73.9 - Hyperglycemia, unspecified Comprehensive [place]. Panel Fast 6 Months E55.9 - Vitamin D deficiency, unspecified, E78.5 - Hyperlipidemia, unspecified, F33.9 - Major depressive disorder, recurrent, unspecified, I10 - Essential (primary) hypertension, R73.9 - Hyperglycemia, unspecified Hemoglobin A1c 6 Months E55.9 - Vitamin D deficiency, unspecified, E78.5 - Hyperlipidemia, unspecified, F33.9 - Major depressive disorder, recurrent, unspecified, I10 - Essential (primary) hypertension, R73.9 - Hyperglycemia, unspecified Lipid Panel 6 Months E55.9 - Vitamin D deficiency, unspecified, E78.5 - Hyperlipidemia, unspecified, F33.9 - Major depressive disorder, recurrent, unspecified, I10 - Essential (primary) hypertension, R73.9 - Hyperglycemia, unspecified TSH reflex Free T4 6 Months E55.9 - Vitamin D deficiency, unspecified, E78.5 - Hyperlipidemia, unspecified, F33.9 - Major depressive disorder, recurrent, unspecified, I10 - Essential (primary) hypertension, R73.9 - Hyperglycemia, unspecified Microalbumin, Random (w Creat) 6 Months E55.9 - Vitamin D deficiency, unspecified, E78.5 - Hyperlipidemia, unspecified, F33.9 - Major depressive disorder, recurrent, unspecified, I10 - Essential (primary) hypertension, R73.9 - Hyperglycemia, unspecified Quality Reporting (2019) Depression/Bipolar (159/160/161/177) PHQ-9: Total score: 0 Coding Level of Care Code Medicare Subsequent (G0439) Diagnoses Hyperlipidemia E78.5 Hyperglycemia R73.9 HTN (hypertension) I10 Major depressive disorder, recurrent F33.9 CPT Codes Advance Care Planning - Time spent: 1-15 minutes, not on file ([id number]) Advance Care Planning Advance Care Planning discussion: Exists, not on file Forms completed: Health Care Proxy Time spent: 1-15 minutes, not on file
== END 2023-04-26 14:08 | disposition home or self-care (01) ==
PROVIDERS: PCP Internal Medicine; Visit Provider Internal Medicine
DX: E78.5 Hyperlipidemia, unspecified (principal); R73.9 Hyperglycemia, unspecified; I10 Essential (primary) hypertension; F33.9 Major depressive disorder, recurrent, unspecified; Z00.00 Encounter for general adult medical examination without abnormal findings
CPT/HCPCS: 1124F; G0439

== ENCOUNTER 2023-04-26 14:06 | Outpatient (REF) | payer MEDICARE, SELFPAY ==
[2023-04-26 17:14] LABS: Alanine Aminotransferase 19 U/L (0-31); Albumin Level 4.2 g/dL (3.5-5.0); Alkaline Phosphatase 128 U/L (39-117); Anion Gap 14 (12-20); Aspartate Amino Transferase 23 U/L (5-31); Bilirubin Total 0.5 mg/dL (0.0-1.0); Blood Urea Nitrogen 13 mg/dL (9-16); Calcium 9.8 mg/dL (8.4-10.2); Carbon Dioxide 28 mmol/L (22-29); Chloride 104 mmol/L (96-108); Estimated Glomerular Filt Rate > 60; Glucose Fasting 106 mg/dL (60-99); Potassium 4.1 mmol/L (3.3-5.1); Sodium 142 mmol/L (135-145); Total Protein 7.2 g/dL (6.5-8.0)
[2023-04-26 17:28] LABS: Estimated Average Glucose 117 mg/dL; Hemoglobin A1c % 5.7 % (<6.0)
== END 2023-04-26 14:07 | disposition home or self-care (01) ==
LOC: HO.HMGCLDS 14:06
PROVIDERS: PCP Internal Medicine; Visit Provider Internal Medicine
DX: I10 Essential (primary) hypertension (principal); R73.9 Hyperglycemia, unspecified; E78.5 Hyperlipidemia, unspecified
CPT/HCPCS: 36415; 80053; 83036

== ENCOUNTER 2023-11-08 08:55 | Outpatient (REF) | payer MEDICARE, SELFPAY ==
[2023-11-08 10:36] LABS: MANUAL DIFF FLAG NO
[2023-11-08 10:43] LABS: Basophils Percent Auto 0.6 % (0-2); Eosinophils Absolute Auto 0.3 X10*3/uL (0.0-0.4); Eosinophils Percent Auto 4.7 % (0-4); Hematocrit 42.7 % (37.0-47.0); Hemoglobin 13.9 g/dl (12.0-16.0); Imm Gran Abs Auto 0.01 X10*3/uL (0.00-0.03); Imm Gran Pct Auto 0.1 % (0.0-0.4); Lymphocytes Percent Auto 40.8 % (20-40); Mean Corpuscular HGB Conc 32.6 g/dl (31.0-35.0); Mean Corpuscular Volume 89.1 fL (80.0-98.0); Mean Platelet Volume 11.2 fL (9.4-12.3); Monocytes Absolute Auto 0.5 X10*3/uL (0.1-1.2); Monocytes Percent Auto 6.7 % (2-11); Neutrophils Absolute Auto 3.4 x10*3/uL (2.0-8.3); Neutrophils Percent Auto 47.1 % (45-73); Platelet Count 244 X10*3/uL (160-400); Red Blood Count 4.79 X10*6/uL (4.20-5.50); Red Cell Distribution Width 13.1 % (11.0-16.0); White Blood Count 7.3 X10*3/uL (4.8-10.8)
[2023-11-08 11:18] LABS: Estimated Average Glucose 126 mg/dL
[2023-11-08 11:21] LABS: Alanine Aminotransferase 15 U/L (0-31); Albumin Level 3.9 g/dL (3.5-5.0); Alkaline Phosphatase 132 U/L (39-117); Anion Gap 11 (12-20); Aspartate Amino Transferase 21 U/L (5-31); Bilirubin Total 0.4 mg/dL (0.0-1.0); Blood Urea Nitrogen 15 mg/dL (9-16); Calcium 9.5 mg/dL (8.4-10.2); Carbon Dioxide 27 mmol/L (22-29); Chloride 106 mmol/L (96-108); Cholesterol 173 mg/dL (<200); Estimated Glomerular Filt Rate > 60; Glucose Fasting 107 mg/dL (60-99); HDL Cholesterol 65 mg/dL (>40); LDL Cholesterol Calculated 92 mg/dL (<100); Potassium 4.3 mmol/L (3.3-5.1); Sodium 140 mmol/L (135-145); Total Protein 6.8 g/dL (6.5-8.0); Triglycerides 80 mg/dL (<150)
[2023-11-08 11:32] LABS: Creatinine Urine 84.15 mg/dL; Microalbumin Urine < 5.0 mg/L
[2023-11-08 11:43] LABS: TSH reflex Free T4 0.91 uIU/mL (0.32-4.0)
== END 2023-11-08 08:56 | disposition home or self-care (01) ==
LOC: HO.HMGCLDS 08:55
PROVIDERS: PCP Internal Medicine; Visit Provider Internal Medicine
DX: E78.5 Hyperlipidemia, unspecified (principal); R73.9 Hyperglycemia, unspecified; I10 Essential (primary) hypertension; E55.9 Vitamin D deficiency, unspecified; F33.9 Major depressive disorder, recurrent, unspecified
CPT/HCPCS: 36415; 80053; 80061; 82043; 82570; 83036; 84443; 85025

== ENCOUNTER 2023-11-09 09:55 | Outpatient (AMB) | payer MEDICARE, SELFPAY ==
[2023-11-09 10:25] VITALS: BP 118/76; PULSE 69; O2SAT 95; BMI 28.0
--- NOTE | 2023-11-09 10:25 | MHC.PC.OV ---
Vital Signs 11/09/23 10:25 Height 5 ft 2 in Weight 153 lb BMI 28.0 BP 118/76 Blood Pressure Location Rt brachial Position Sitting Pulse 69 Pulse Source Pulse Oximeter Pulse Oximetry (%) 95 Oxygen Delivery Method Room Air Intake Visit Reasons: 6M F/U Intake Note: Pt is here today for 6 months follow up visit. Allergies No Known Allergies [No Known Allergies*] Allergy (Verified 11/09/23 10:28) Medication List - Last Reconciled 11/09/23 by Veronica Randhawa MD acetaminophen 1,000 mg (2 x 500 mg) PO Q8H PRN 30 days amlodipine 2.5 mg PO DAILY atorvastatin 40 mg PO DAILY duloxetine 60 mg PO DAILY lidocaine 5% 1 patch topical DAILY 30 days lisinopril-hydrochlorothiazide 20-12.5 mg 1 tab PO DAILY mirtazapine 7.5 mg PO BEDTIME 90 days tizanidine 2 mg PO TID PRN 30 days Tobacco use date assessed: 11/09/23 Fall risk assessment: No Falls in past year Last assessed Fall Risk: 11/09/23 Dental Screening Dental Screen Date: 11/09/23 Did you have a dental visit in the last 12 months?: No Did you have a dental problem in the last 6 months where you did not have access to dental care?: No Was dental information given to patient?: Patient declined HPI 6M F/U HPI Details Patient presents for the follow-up on hypertension hyperlipidemia chronic depression stable on current medications. [facility] Medical History Anxiety Vitamin D deficiency Vitamin B 12 deficiency Fatigue Neck pain Depression Hyperglycemia Hyperlipidemia HTN (hypertension) Surgical History No pertinent past surgical history Family History Father No problems noted. Mother Heart problem Social History Household Members: Spouse Housing: House Do you presently have visiting nurse or other home services: No Comment: pt observed ambulating independently w/strong and steady gait. Patient Tobacco Use Status: Never used Tobacco e-Cigarette/Vaping Use: Never Used service: No Current occupational status: retired Sexual orientation: Straight/Heterosexual Cognitive needs: No Hearing needs: No Vision needs: No Questionnaire Thrive Questionnaire Date Thrive assessed: 11/09/23 I am a: Patient What is your living situation today?: I have a steady place to live Within the past 12 months, did the food you bought not last and you didn't have the money to get more?: Never true Within the past 12 months, did you worry whether your food would run out before you got money to buy more?: Never true Do you have trouble paying for medicines?: No Do you have trouble getting transportation to medical appointments?: No Do you have trouble paying your heating and electricity bill?: No Do you have trouble taking care of your child, family member or friend?: No Do you have trouble with day-to-day activities such as bathing, preparing meals, shopping, managing finances, etc.?: No Are you currently unemployed and looking for a job?: No Are you interested in more education?: No Please select the resources that you would like help with: None THRIVE Score: 0 AUDIT C Alcohol Use Questionnaire (AUDIT-C) 1. How often do you have a drink containing alcohol?: Never 3. How often do you have six or more drinks on one occasion?: Never Total Score: 0 YUDITH-7 AMB Questionnaire YUDITH-7 Date YUDITH - 7 assessed: 11/09/23 Feeling nervous, anxious, or on edge: 0 = Not at all Not being able to stop or control worryin = Not at all Worrying too much about different things: 0 = Not at all Trouble relaxin = Not at all Being so restless that it is hard to sit still: 0 = Not at all Becoming easily annoyed or irritable: 0 = Not at all Feeling afraid as if something awful might happen: 0 = Not at all Total YUDITH-7 score (0-4 normal; 5-9 mild; 10-14 moderate; 15-21 severe): 0 Source: Developed by Drs. Isaias Rousseau, Aria Bautista, Malik Foster and colleagues, with an educational rachelle from [employer]. YUDITH-7 Assessment Billing YUDITH-7 Assessment Tool: YUDITH-7 Assessment 34477 Review of Systems Const All systems reviewed & are unremarkable except as noted in HPI and below Eyes Reports no additional complaints ENT Reports no additional complaints Card Reports no additional complaints Resp Reports no additional complaints GI Reports no additional complaints Physical exam (Primary Care) Vital Signs: Last Vital Signs Pulse 69 11/09/23 10:25 BP 118/76 11/09/23 10:25 Pulse Ox 95 11/09/23 10:25 Oxygen Delivery Method Room Air 11/09/23 10:25 BMI result Body Mass Index 28.0 Tobacco/Smoking Status: Tobacco use Status Tobacco use date assessed 11/09/23 11/09/23 10:33 Patient Tobacco Use Status Never used Tobacco 11/09/23 10:33 e-Cigarette/Vaping Use Never Used 11/09/23 10:33 Thrive Assessment: Date of Thrive Assessment Date Thrive assessed 11/09/23 11/09/23 10:44 Const General: no acute distress HENMT Head: Yes normal to inspection Eyes General: appearance normal, both eyes and all related structures Neck Neck: Yes supple Resp Effort & Inspection: normal respiratory effort Auscultation: clear to auscultation bilaterally Cardio Rhythm: regular rhythm Heart sounds: S1 normal heart sound present and S2 normal heart sound present GI Inspection: Yes normal to inspection Palpation (GI): Soft to palpation Percussion: Yes normal to percussion Auscultation: normal bowel sounds Assessment and Plan Assessment & Plan (1) Hyperglycemia: Code(s): R73.9 - Hyperglycemia, unspecified Plan: A1c is 6.0, ADA diet increase exercise weight loss discussed with the patient follow-up in 6 months with a fasting labs before (2) HTN (hypertension): Code(s): I10 - Essential (primary) hypertension Plan: Continue current medications (3) Hyperlipidemia: Code(s): E78.5 - Hyperlipidemia, unspecified Plan: Continue statin (4) Vitamin B 12 deficiency: Code(s): E53.8 - Deficiency of other specified B group vitamins Plan: Check vitamin B12 level (5) Vitamin D deficiency: Code(s): E55.9 - Vitamin D deficiency, unspecified Plan: Continue vitamin-D supplement (6) Major depressive disorder, recurrent: Comment: in remission Code(s): F33.9 - Major depressive disorder, recurrent, unspecified Plan: Continue current medications follow-up with the Psychiatry Orders: Orders Comprehensive [place]. Panel Fast 6 Months E53.8 - Deficiency of other specified B group vitamins, E55.9 - Vitamin D deficiency, unspecified, E78.5 - Hyperlipidemia, unspecified, I10 - Essential (primary) hypertension, R73.9 - Hyperglycemia, unspecified Complete Blood Count Auto Diff 6 Months E53.8 - Deficiency of other specified B group vitamins, E55.9 - Vitamin D deficiency, unspecified, E78.5 - Hyperlipidemia, unspecified, I10 - Essential (primary) hypertension, R73.9 - Hyperglycemia, unspecified Vitamin B12 and Folate 6 Months E53.8 - Deficiency of other specified B group vitamins, E55.9 - Vitamin D deficiency, unspecified Vitamin D 25-OH Total 6 Months E53.8 - Deficiency of other specified B group vitamins, E55.9 - Vitamin D deficiency, unspecified Lipid Panel 6 Months E53.8 - Deficiency of other specified B group vitamins, E55.9 - Vitamin D deficiency, unspecified, E78.5 - Hyperlipidemia, unspecified, I10 - Essential (primary) hypertension, R73.9 - Hyperglycemia, unspecified Hemoglobin A1c 6 Months E53.8 - Deficiency of other specified B group vitamins, E55.9 - Vitamin D deficiency, unspecified, E78.5 - Hyperlipidemia, unspecified, I10 - Essential (primary) hypertension, R73.9 - Hyperglycemia, unspecified Microalbumin, Random (w Creat) 6 Months E53.8 - Deficiency of other specified B group vitamins, E55.9 - Vitamin D deficiency, unspecified, E78.5 - Hyperlipidemia, unspecified, I10 - Essential (primary) hypertension, R73.9 - Hyperglycemia, unspecified Coding Level of Care Code Est Pt Level 4 (41888) Diagnoses Hyperglycemia R73.9 HTN (hypertension) I10 Hyperlipidemia E78.5 Vitamin B 12 deficiency E53.8 Vitamin D deficiency E55.9 Major depressive disorder, recurrent F33.9 Additional Codes YUDITH-7 Assessment Billing - YUDITH-7 Assessment Tool: YUDITH-7 Assessment [id number] ([id number])
== END 2023-11-09 11:34 | disposition home or self-care (01) ==
PROVIDERS: PCP Internal Medicine; Visit Provider Internal Medicine
DX: R73.9 Hyperglycemia, unspecified (principal); F33.9 Major depressive disorder, recurrent, unspecified; I10 Essential (primary) hypertension; E78.5 Hyperlipidemia, unspecified; E53.8 Deficiency of other specified B group vitamins; E55.9 Vitamin D deficiency, unspecified
CPT/HCPCS: 99214

== ENCOUNTER 2024-04-26 08:55 | Outpatient (REF) | payer MEDICARE, SELFPAY ==
[2024-04-26 09:53] LABS: MANUAL DIFF FLAG NO
[2024-04-26 10:01] LABS: Basophils Percent Auto 0.5 % (0-2); Eosinophils Absolute Auto 0.4 X10*3/uL (0.0-0.4); Eosinophils Percent Auto 4.4 % (0-4); Hematocrit 42.7 % (37.0-47.0); Hemoglobin 14.2 g/dl (12.0-16.0); Imm Gran Abs Auto 0.03 X10*3/uL (0.00-0.03); Imm Gran Pct Auto 0.4 % (0.0-0.4); Lymphocytes Absolute Auto 3.6 X10*3/uL (1.2-4.9); Lymphocytes Percent Auto 44.5 % (20-40); Mean Corpuscular HGB Conc 33.3 g/dl (31.0-35.0); Mean Corpuscular Hemoglobin 29.4 pg (27.0-33.0); Mean Corpuscular Volume 88.4 fL (80.0-98.0); Mean Platelet Volume 11.1 fL (9.4-12.3); Monocytes Absolute Auto 0.6 X10*3/uL (0.1-1.2); Monocytes Percent Auto 6.8 % (2-11); Neutrophils Absolute Auto 3.5 x10*3/uL (2.0-8.3); Neutrophils Percent Auto 43.4 % (45-73); Platelet Count 247 X10*3/uL (160-400); Red Blood Count 4.83 X10*6/uL (4.20-5.50); Red Cell Distribution Width 13.3 % (11.0-16.0); White Blood Count 8.1 X10*3/uL (4.8-10.8)
[2024-04-26 10:17] LABS: Estimated Average Glucose 134 mg/dL; Hemoglobin A1C 172.1435 umol/L; Hemoglobin A1c % 6.3 % (<6.0); Total Hemoglobin (HGBA1C) 3769.8934 umol/L
[2024-04-26 10:43] LABS: Creatinine Urine 140.94 mg/dL; Microalbum/Creatinine Ratio Ur 13.4 ug/mg cr (<30)
[2024-04-26 10:45] LABS: Folate 10.5 ng/mL (> or = 4.0); Vitamin B12 512 pg/mL (200-900)
[2024-04-26 10:54] LABS: Alanine Aminotransferase 23 U/L (0-31); Albumin Level 3.8 g/dL (3.5-5.0); Alkaline Phosphatase 121 U/L (39-117); Anion Gap 10 (12-20); Aspartate Amino Transferase 25 U/L (5-31); Bilirubin Total 0.4 mg/dL (0.0-1.0); Blood Urea Nitrogen 17 mg/dL (9-16); Carbon Dioxide 27 mmol/L (22-29); Chloride 108 mmol/L (96-108); Cholesterol 255 mg/dL (<200); Estimated Glomerular Filt Rate > 60; Glucose Fasting 116 mg/dL (60-99); HDL Cholesterol 59 mg/dL (>40); LDL Cholesterol Calculated 170 mg/dL (<100); Potassium 3.9 mmol/L (3.3-5.1); Sodium 141 mmol/L (135-145); Triglycerides 132 mg/dL (<150)
[2024-04-26 11:12] LABS: Vitamin D 25-OH Total 33.9 ng/mL (>30)
== END 2024-04-26 08:56 | disposition home or self-care (01) ==
LOC: HO.HMGCLDS 08:55
PROVIDERS: PCP Internal Medicine; Visit Provider Internal Medicine
DX: R73.9 Hyperglycemia, unspecified (principal); I10 Essential (primary) hypertension; E78.5 Hyperlipidemia, unspecified; E53.8 Deficiency of other specified B group vitamins; E55.9 Vitamin D deficiency, unspecified
CPT/HCPCS: 36415; 80053; 80061; 82043; 82306; 82570; 82607; 82746; 83036; 85025

== ENCOUNTER 2024-04-27 09:28 | Outpatient (AMB) | payer MEDICARE, SELFPAY ==
[2024-04-27 09:43] VITALS: BP 128/76; PULSE 70; RESP 18; TEMP 36.8; O2SAT 96; BMI 28.9
--- NOTE | 2024-04-27 09:43 | A.OFFVIS_ITS ---
Intake Vital Signs 04/27/24 09:43 Height 5 ft 2 in Weight 158 lb BMI 28.9 BP 128/76 Blood Pressure Location Rt brachial Position Sitting Respiration 18 Pulse 70 Pulse Source Pulse Oximeter Temp 98.3 F Temp Source Oral Pulse Oximetry (%) 96 Oxygen Delivery Method Room Air Intake Visit Reasons: SWV G0439 Intake Note: Pt is here today for AWV. Allergies No Known Allergies [No Known Allergies*] Allergy (Verified 04/27/24 09:50) Medication List - Last Reconciled 04/27/24 by Veronica Randhawa MD acetaminophen 1,000 mg (2 x 500 mg) PO Q8H PRN 30 days amlodipine 2.5 mg PO DAILY atorvastatin 40 mg PO DAILY duloxetine 60 mg PO DAILY lidocaine 5% 1 patch topical DAILY 30 days lisinopril-hydrochlorothiazide 20-12.5 mg 1 tab PO DAILY mirtazapine 7.5 mg PO BEDTIME 90 days tizanidine 2 mg PO TID PRN 30 days HPI SWV G0439 HPI Details Initiated the conversation about Advanced Directives. Advanced Directives help? patients prepare for current and future decisions about their medical treatment? and place of care. Discussed with patient that it is a pro cess where a patients? current condition and prognosis are reviewed, their wishes for information? regarding their illness are elicited, and likely medical dilemmas are presented? and options discussed. The form can be amended as needed, reviewed yearly and? make changes as needed IPPE/AWV ? year old presents? for her ? Annual? Wellness Visit, initial visit.? Medical / Social History Reviewed? Past Medical History ?Yes? . ? [place]? of Care / Care Team list updated ?Yes . ? Surgical/Hospitalization? History ?Yes . ? Current Medications? (including OTC and supplements) ?Yes . ? Family History ?Yes? . ? Tobacco? Control form ?Yes . ? AUDIT-C (Alcohol use) form? ?Yes . ? Illicit drug use in Social? History ?Yes . ? Current diagnosis of? depression? ?No ? Appropriate PHQ2/PHQ9? completed ?Yes . ? Data entered by ?Medical? Multimedia Authoring Specialist and reviewed by provider ? Fall Risk ? Fall? History? Have you had any falls with? injury in the past year? ?No . ? Have you had two or more? falls in the past year? ?No . ? Fall Risk Assessment: ?No? falls in the past year . ? HRA filled out by? the patient, reviewed by Provider and scanned. ? IPPE/AWV ? Balance? [place]? ?Yes . ? Tandem? walk ?Yes . ? Walk and? Turn ?Yes . ? Rise from? sit to stand ?Yes . ?Vision? Corrective? lens ?Yes ? Vision? screen ? Up-to-date, has an appointment [] for vision? screening and glaucoma screening ?Hearing? Whisper? test ?pass .? Initiated the conversation about Advanced Directives. Advanced Directives help? patients prepare for current and future decisions about their medical treatment? and place of care. Discussed with patient that it is a process where a patients? current condition and prognosis are reviewed, their wishes for information? regarding their illness are elicited, and likely medical dilemmas are presented? and options discussed. The form can be amended as needed, reviewed yearly and? make changes as needed Written? Plan?Completed. See Patient? Documents. [facility] Medical History Anxiety Vitamin D deficiency Vitamin B 12 deficiency Fatigue Neck pain Depression Hyperglycemia Hyperlipidemia HTN (hypertension) Surgical History No pertinent past surgical history Family History Father No problems noted. Mother Heart problem Social History Household Members: Spouse Housing: House Do you presently have visiting nurse or other home services: No Comment: pt observed ambulating independently w/strong and steady gait. Patient Tobacco Use Status: Never used Tobacco e-Cigarette/Vaping Use: Never Used service: No Current occupational status: retired Sexual orientation: Straight/Heterosexual Cognitive needs: No Hearing needs: No Vision needs: No Questionnaire Medicare Wellness Checkup [age] What gender do you identify with?: female During the past 4 weeks, how much have you been bothered by emotional problems such as feeling anxious, depressed, irritable, sad or downhearted, and blue?: not at all During the past 4 weeks, has your physical & emotional health limited your social activities with family, friends, neighbors, or groups?: not at all During the past 4 weeks, how much bodily pain have you generally had?: very mild pain During the past 4 weeks, was someone available to help you if you needed & wanted help?: yes, as much as I wanted During the past 4 weeks, what was the hardest physical activity you could do for at least 2 minutes?: heavy Can you get to places out of walking distance without help? (For eg., can you travel alone on buses, taxis or drive your car?): Yes Can you go shopping for groceries or clothes without someone's help?: Yes Can you prepare your own meals?: Yes Can you do your housework without help?: Yes Because of any health problems, do you need the help of another person with your personal care needs such as eating, bathing, dressing or getting around the house?: No Can you handle your own money without help?: Yes During the past 4 weeks, how would you rate your health in general?: very good During the past 4 weeks how have things been going for you?: very well; could hardly better Are you having difficulties driving your car?: no Do you always fasten your seat belt when you are in a car?: yes, usually During past 4 weeks, have you been bothered by the following: never: Falling or dizzy when standing up, Sexual problems?, Trouble eating well?, Teeth or denture problems?, Problems using the telephone? and Tiredness or fatigue? Have you fallen 2 or more times in the past year?: No Are you afraid of falling?: No Are you a smoker?: no During the past 4 weeks, how many drinks of wine, beer, or other alcoholic beverages did you have?: no alcohol at all Do you exercise for about 20 minutes 3 or more times a week?: yes, some of the time Have you been given information to help with the following?: no: Hazards in your house that might hurt you? and no: Keeping track of your medications? How often do you have trouble taking medicines the way you have been told to take them?: I always take medicine as prescribed How confident are you that you can control & manage most of your health problems?: very confident What is your race?: White Mini Mental State Exam (MMSE) Orientation What is the (year) (season) (date) (day) (month)?: year, season, date, day and month Where are we (state) (county) (town or city) (hospital) (floor)?: state, county, town or city, hospital/clinic and floor Registration Name of 3 unrelated objects clearly and slowly, then ask patient to repeat all 3 of them. (1st repeat determines score. Make sure they can repeat all three): object 1, object 2 and object 3 Attention & Calculation (CHOOSE ONE) Spell WORLD backwards (DLROW): 5 letters Recall Ask patient to repeat the 3 items from question #3.: object 1, object 2 and object 3 Language Show patient a wristwatch & ask what it is. Repeat for pencil.: watch and pencil Ask the patient to repeat the phrase 'No ifs, ands, or buts' after you.: correct Ask the patient to 'take a piece of paper with their right hand' 'fold paper in half' 'place paper on floor': take paper in right hand, fold paper in half and place paper on floor Print the sentence 'CLOSE YOUR EYES' on a piece. If patient actually closes eyes then score.: followed written direction Give patient a blank piece of paper & ask to write a sentence. Score if it contains a noun & verb.: sentence contains subject and verb Score Score: 29 Activity of Daily Living Bathing - sponge bath, tub bath or shower: receives no assistance (gets in/out by self, if usual bathing means Dressing - getting clothes from closets & drawers, including inner/outer garments & fasteners.: gets clothes & gets completely dressed without help Toileting - going to the 'toilet room' for urine/bowel elimination & cleaning self/arranging clothes: goes to toilet room, cleans self, arranges clothes without help Transfer: moves in & out of bed and chair without help (may use support object) Continence: controls urination/bowel movements completely by self Feeding: feeds self without help Total Score: 0 Information obtained from: patient Using telephone: independent Traveling: independent Shopping: independent Preparing meals: independent Housework: independent Taking medicine: independent Managing money: independent PHQ-9 Over the last 2 weeks, how often have you been bothered by any of the following problems? 1. Little interest or pleasure in doing things: not at all 2. Feeling down, depressed, or hopeless: not at all 3. Trouble falling or staying asleep, or sleeping too much: not at all 4. Feeling tired or having little energy: not at all 5. Poor appetite or overeating: not at all 6. Feeling bad about yourself - or that you are a failure or have let yourself or your family down: not at all 7. Trouble concentrating on things, such as reading the newspaper or watching television: not at all 8. Moving or speaking so slowly that other people could have noticed. Or the opposite - being so fidgety or restless that you have been moving around a lot more than usual: not at all 9. Thoughts that you would be better off or of hurting yourself in some way: not at all Total score: 0 Depression Screening Interpretation: Negative Depression Screening Done: Yes 17485 - PHQ-9 Billing: Yes Source: Developed by Drs. Isaias Rousseau, Aria Bautista, Malik Foster and colleagues, with an educational rachelle from [id number]. Review of Systems Const All systems reviewed & are unremarkable except as noted in HPI and below Reports no additional complaints Eyes Reports no additional complaints ENT Reports no additional complaints Card Reports no additional complaints Resp Reports no additional complaints GI Reports no additional complaints Reports no additional complaints Physical Exam Vital Signs: Last Vital Signs Temp 98.3 F 04/27/24 09:43 Pulse 70 04/27/24 09:43 Resp 18 04/27/24 09:43 BP 128/76 04/27/24 09:43 Pulse Ox 96 04/27/24 09:43 Oxygen Delivery Method Room Air 04/27/24 09:43 BMI result Body Mass Index 28.9 Const General: no acute distress HEENT Head: Yes normal to inspection Ears: hearing grossly normal bilaterally Neck Neck: Yes no lymphadenopathy and Yes supple Resp Effort & Inspection: normal respiratory effort Auscultation: clear to auscultation bilaterally Cardio Rhythm: regular rhythm Heart sounds: S1 normal heart sound present and S2 normal heart sound present GI Inspection: Yes normal to inspection Palpation (GI): Soft to palpation Percussion: Yes normal to percussion Auscultation: normal bowel sounds Extrem General: Yes no clubbing, cyanosis or edema Assessment & Plan Assessment & Plan (1) HTN (hypertension): Code(s): I10 - Essential (primary) hypertension Plan: Continue current medications (2) Hyperglycemia: Code(s): R73.9 - Hyperglycemia, unspecified Plan: A1c is 6.3. ADA diet increase exercise weight loss discussed with the patient follow-up in 6 months with a fasting labs before (3) Major depressive disorder, recurrent: Comment: in remission Code(s): F33.9 - Major depressive disorder, recurrent, unspecified Plan: Continue current medications (4) Annual physical exam: Code(s): Z00.00 - Encounter for general adult medical examination without abnormal find ings Plan: Well-balanced diet regular physical activity discussed with the patient return in 6 months Orders: Orders Hemoglobin A1c 6 Months F33.9 - Major depressive disorder, recurrent, unspecified, I10 - Essential (primary) hypertension, R73.9 - Hyperglycemia, unspecified, Z00.00 - Encounter for general adult medical examination without abnormal findings Complete Blood Count Auto Diff 6 Months F33.9 - Major depressive disorder, recurrent, unspecified, I10 - Essential (primary) hypertension, R73.9 - Hyperglycemia, unspecified, Z00.00 - Encounter for general adult medical examination without abnormal findings Comprehensive [place]. Panel Fast 6 Months F33.9 - Major depressive disorder, recurrent, unspecified, I10 - Essential (primary) hypertension, R73.9 - Hyperglycemia, unspecified, Z00.00 - Encounter for general adult medical examination without abnormal findings Medications: Refilled amlodipine 2.5 mg PO DAILY 90 tabs 3RF I10 - Essential (primary) hypertension atorvastatin 40 mg PO DAILY 90 tabs 3RF E78.5 - Hyperlipidemia, unspecified lisinopril-hydrochlorothiazide 20-12.5 mg 1 tab PO DAILY 90 tabs 3RF I10 - Essential (primary) hypertension duloxetine 60 mg PO DAILY 90 caps 3RF mirtazapine 7.5 mg PO BEDTIME 90 days 90 tabs 3RF Quality Reporting (2019) Depression/Bipolar (159/160/161/177) PHQ-9: Total score: 0 Coding Level of Care Code Medicare Subsequent (G0439) Diagnoses HTN (hypertension) I10 Hyperglycemia R73.9 Major depressive disorder, recurrent F33.9 Annual physical exam Z00.00 CPT Codes Advance Care Planning - Advance Care Planning discussion: On file, no changes ([id number]) Advance Care Planning - Time spent: 1-15 minutes, on File ([id number]) Additional Codes PHQ-9 - 06425 - PHQ-9 Billing: Yes ([id number]) Advance Care Planning Advance Care Planning discussion: On file, no changes Forms completed: Health Care Proxy Time spent: 1-15 minutes, on File Did not discuss due to Cultural/Spiritual beliefs: Yes
== END 2024-04-27 10:46 | disposition home or self-care (01) ==
LOC: HO.HMCC 09:28
PROVIDERS: PCP Internal Medicine; Visit Provider Internal Medicine
DX: Z00.00 Encounter for general adult medical examination without abnormal findings (principal); I10 Essential (primary) hypertension; R73.9 Hyperglycemia, unspecified; F33.9 Major depressive disorder, recurrent, unspecified

== ENCOUNTER → 2024-04-27 09:28 | Outpatient (BNVA) | payer MEDICARE, SELFPAY | PROVIDERS: PCP Internal Medicine; Visit Provider Internal Medicine | DX: Z00.00 Encounter for general adult medical examination without abnormal findings (principal); I10 Essential (primary) hypertension; R73.9 Hyperglycemia, unspecified; F33.9 Major depressive disorder, recurrent, unspecified | CPT/HCPCS: 96127 ==

== ENCOUNTER 2024-05-26 09:54 | Outpatient (AMB) | payer MEDICARE, SELFPAY ==
[2024-05-26 09:55] VITALS: BP 124/70; PULSE 70; RESP 18; TEMP 36.7; O2SAT 96; BMI 28.7
--- NOTE | 2024-05-26 09:55 | A.OFFPC_ITS ---
Vital Signs 05/26/24 09:55 Height 5 ft 2 in Weight 157 lb BMI 28.7 BP 124/70 Blood Pressure Location Lt brachial Position Sitting Respiration 18 Pulse 70 Pulse Source Pulse Oximeter Temp 98.1 F Temp Source Oral Pulse Oximetry (%) 96 Oxygen Delivery Method Room Air Intake Visit Reasons: fall on rt shoulder Intake Note: Pt is here today for a sick visit. Pt states that she had a fall 2 weeks ago slipped on ice and hit her R shoulder. Pt c/o shoulder pain. Allergies No Known Allergies [No Known Allergies*] Allergy (Verified 04/27/24 09:50) Medication List - Last Reconciled 05/26/24 by Veronica Randhawa MD acetaminophen 1,000 mg (2 x 500 mg) PO Q8H PRN 30 days amlodipine 2.5 mg PO DAILY atorvastatin 40 mg PO DAILY duloxetine 60 mg PO DAILY lidocaine 5% 1 patch topical DAILY 30 days lisinopril-hydrochlorothiazide 20-12.5 mg 1 tab PO DAILY meloxicam 15 mg PO DAILY mirtazapine 7.5 mg PO BEDTIME 90 days tizanidine 2 mg PO TID PRN 30 days Tobacco use date assessed: 11/09/23 Dental Screening Dental Screen Date: 11/09/23 HPI fall on rt shoulder HPI Details Pt fell down on R shoulder 1 week ago and complains of persistent pain and stiffness worse when trying to reach overhead or behind her back. Hypertension is controlled on current medications [facility] Medical History Anxiety Vitamin D deficiency Vitamin B 12 deficiency Fatigue Neck pain Depression Hyperglycemia Hyperlipidemia HTN (hypertension) Surgical History No pertinent past surgical history Family History Father No problems noted. Mother Heart problem Social History Household Members: Spouse Housing: House Do you presently have visiting nurse or other home services: No Comment: pt observed ambulating independently w/strong and steady gait. Patient Tobacco Use Status: Never used Tobacco e-Cigarette/Vaping Use: Never Used service: No Current occupational status: retired Sexual orientation: Straight/Heterosexual Cognitive needs: No Hearing needs: No Vision needs: No Questionnaire Thrive Questionnaire Date Thrive assessed: 11/09/23 YUDITH-7 AMB Questionnaire YUDITH-7 Date YUDITH - 7 assessed: 11/09/23 Source: Developed by Drs. Isaias Rousseau, Aria Bautista, Malik Foster and colleagues, with an educational rachelle from [employer]. Review of Systems Const All systems reviewed & are unremarkable except as noted in HPI and below Eyes Reports no additional complaints ENT Reports no additional complaints Card Reports no additional complaints Resp Reports no additional complaints GI Reports no additional complaints Reports no additional complaints Physical exam (Primary Care) Vital Signs: Last Vital Signs Temp 98.1 F 05/26/24 09:55 Pulse 70 05/26/24 09:55 Resp 18 05/26/24 09:55 BP 124/70 05/26/24 09:55 Pulse Ox 96 05/26/24 09:55 Oxygen Delivery Method Room Air 05/26/24 09:55 BMI result Body Mass Index 28.7 Tobacco/Smoking Status: Tobacco use Status Tobacco use date assessed 11/09/23 05/26/24 09:55 Patient Tobacco Use Status Never used Tobacco 05/26/24 09:55 e-Cigarette/Vaping Use Never Used 05/26/24 09:55 Thrive Assessment: Date of Thrive Assessment Date Thrive assessed 11/09/23 05/26/24 09:55 Const General: no acute distress HENMT Head: Yes normal to inspection Mouth: Normal oral and palatal mucosa present Resp Effort & Inspection: normal respiratory effort Auscultation: clear to auscultation bilaterally Cardio Rhythm: regular rhythm Heart sounds: S1 normal heart sound present and S2 normal heart sound present Extrem Other: There is a slightly decreased range of motion and lateral aspect tenderness in the right shoulder Coding Level of Care Code Est Pt Level 4 (14782) Diagnoses Right shoulder pain M25.511 HTN (hypertension) I10 Assessment & Plan Assessment & Plan (1) Right shoulder pain: Code(s): M25.511 - Pain in right shoulder Category: Medical Plan: Check x-ray of right shoulder referred for physical therapy, meloxicam for 2 weeks as prescribed (2) HTN (hypertension): Code(s): I10 - Essential (primary) hypertension Category: Medical Plan: Continue current medications Orders: Orders XR shoulder RT min 2V Today M25.511 - Pain in right shoulder PT Evaluation and Treatment Today M25.511 - Pain in right shoulder Medications: New meloxicam 15 mg PO DAILY 14 tabs 0RF
== END 2024-05-26 10:11 | disposition home or self-care (01) ==
LOC: HO.HMCC 09:54
PROVIDERS: PCP Internal Medicine; Visit Provider Internal Medicine
DX: M25.511 Pain in right shoulder (principal); I10 Essential (primary) hypertension

== ENCOUNTER → 2024-05-26 09:54 | Outpatient (BNVA) | payer MEDICARE, SELFPAY | PROVIDERS: PCP Internal Medicine; Visit Provider Internal Medicine | DX: M25.511 Pain in right shoulder (principal); I10 Essential (primary) hypertension | CPT/HCPCS: 99212 ==

== ENCOUNTER 2024-06-07 07:52 | Outpatient (RCR) | payer MEDICARE, SELFPAY ==
--- NOTE | 2024-06-07 09:57 | MHC.PT.EP ---
[facility] [place] [facility] [place] [facility] [place] [facility] [address] [phone] F: [phone] F: [phone] F: [phone] F: [phone] Physical Therapy Plan of Care Date of Evaluation: 06/07/24 Date of Surgery: Diagnosis: Pain in R shoulder Assessment: Patient is a 78 year old R handed female who presents with s/s consistent with pain in right shoulder. 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 Patient past medical history includes neck pain, a fall, and HTN. Current impairments include pain, posture, ROM, strength, activity tolerance and functional mobility. Functional limitations include decreased ability to reach, lift, carry, push, pull, dress and sleep. Patient is motivated with good rehab potential. Skilled PT will address impairments and functional limitations in order to achieve goals. Frequency and Duration: The patient will be seen 2x/week for 5 weeks Short Term Goals: I with HEP - 2 weeks AROM flexion and scaption 110 - 3 weeks ER AROM 50 - 3 weeks Able to dress pain free - 3 weeks Intermediate Goals: SPADI 30/130 - 5 weeks Strength 4/5 grossly - 5 weeks AROM flexion and scaption 130 - 5 weeks ER/IR AROM 55 - 5 weeks Treatment Plan: Modalities to reduce pain, spasms and effusion. Manual therapy to restore motion and function. Therapeutic exercise to improve strength and flexibility. Neuromuscular re-education for posture and balance. Therapeutic activities to return to functional activities of daily living. Electronically signed by: Frederick Valles, PT Please sign and return to therapist. Thank you for your referral.
--- NOTE | 2024-09-29 06:35 | MHC.PT.DC ---
[facility] [place] Office [place] Office [place] Office [address] [phone] F: [phone] F: [phone] F: [phone] F: [phone] Physical Therapy Discharge Report Diagnosis: Pain in R shoulder Date of Surgery: Date of Evaluation: 06/07/24 Date of Discharge: Treatments to Date: 1 Cancellations to Date: No Shows to Date: Discharge Status: Patient Elected to Stop Discharge Summary: Pt did not return after evaluation. Patient is a 78 year old R handed female who presents with s/s consistent with pain in right shoulder. 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 Patient past medical history includes neck pain, a fall, and HTN. Current impairments include pain, posture, ROM, strength, activity tolerance and functional mobility. Functional limitations include decreased ability to reach, lift, carry, push, pull, dress and sleep. Patient is motivated with good rehab potential. Skilled PT will address impairments and functional limitations in order to achieve goals. Electronically signed by: Frederick Valles, PT Please sign and return to therapist. Thank you for your referral.
== END 2024-09-29 06:36 | disposition home or self-care (01) ==
LOC: HO.PTCHIC 07:52
PROVIDERS: PCP Internal Medicine; Visit Provider Internal Medicine
DX: M25.511 Pain in right shoulder (principal)
CPT/HCPCS: 97110; 97162

== ENCOUNTER 2024-09-27 08:34 | Outpatient (REF) | payer MEDICARE, SELFPAY ==
[2024-09-27 10:31] LABS: MANUAL DIFF FLAG NO
[2024-09-27 10:40] LABS: Hematocrit 42.1 % (37.0-47.0); Hemoglobin 13.6 g/dl (12.0-16.0); Imm Gran Abs Auto 0.03 X10*3/uL (0.00-0.03); Imm Gran Pct Auto 0.4 % (0.0-0.4); Lymphocytes Absolute Auto 3.4 X10*3/uL (1.2-4.9); Mean Corpuscular HGB Conc 32.3 g/dl (31.0-35.0); Mean Corpuscular Hemoglobin 28.6 pg (27.0-33.0); Mean Corpuscular Volume 88.6 fL (80.0-98.0); NRBC Abs Auto 0.000 X10*3/uL (0.0-0.012); NRBC Pct Auto 0.0 /100WBC (0.0-0.2); Platelet Count 233 X10*3/uL (160-400); Red Blood Count 4.75 X10*6/uL (4.20-5.50); White Blood Count 7.6 X10*3/uL (4.8-10.8)
[2024-09-27 10:57] LABS: Hemoglobin A1C 159.3791 umol/L; Total Hemoglobin (HGBA1C) 3548.0701 umol/L
[2024-09-27 11:05] LABS: Alanine Aminotransferase 22 U/L (0-31); Albumin Level 4.0 g/dL (3.5-5.0); Alkaline Phosphatase 122 U/L (39-117); Anion Gap 13 (12-20); Aspartate Amino Transferase 28 U/L (5-31); Blood Urea Nitrogen 14 mg/dL (9-16); Calcium 8.9 mg/dL (8.4-10.2); Carbon Dioxide 25 mmol/L (22-29); Chloride 106 mmol/L (96-108); Estimated Glomerular Filt Rate > 60; Potassium 4.1 mmol/L (3.3-5.1); Sodium 140 mmol/L (135-145); Total Protein 6.7 g/dL (6.5-8.0)
== END 2024-09-27 08:35 | disposition home or self-care (01) ==
LOC: HO.HMGCLDS 08:34
PROVIDERS: PCP Internal Medicine; Visit Provider Internal Medicine
DX: Z00.00 Encounter for general adult medical examination without abnormal findings (principal); F33.9 Major depressive disorder, recurrent, unspecified; I10 Essential (primary) hypertension; R73.9 Hyperglycemia, unspecified
CPT/HCPCS: 36415; 80053; 83036; 85025

== ENCOUNTER 2024-11-28 07:48 | Outpatient (AMB) | payer MEDICARE, SELFPAY ==
--- NOTE | 2024-11-28 08:12 | A.OFFPC_ITS ---
Vital Signs 11/28/24 08:13 Height 5 ft 2 in Weight 157 lb BMI 28.7 BP 128/64 Blood Pressure Location Lt brachial Position Sitting Respiration 18 Pulse 67 Pulse Source Pulse Oximeter Temp 98.2 F Temp Source Oral Pulse Oximetry (%) 97 Oxygen Delivery Method Room Air Intake Visit Reasons: R ankle pain Intake Note: Pt is here today for a sick visit. Pt c/o lump on her R lower leg on the back near the ankle that is painful. Allergies No Known Allergies (No Known Allergies*) Allergy (Verified 11/28/24 08:17) Medication List - Last Reconciled 11/28/24 by Veronica Randhawa MD acetaminophen 1,000 mg (2 x 500 mg) PO Q8H PRN 30 days amlodipine 2.5 mg PO DAILY atorvastatin 40 mg PO DAILY duloxetine 60 mg PO DAILY lidocaine 5% 1 patch topical DAILY 30 days lisinopril-hydrochlorothiazide 20-12.5 mg 1 tab PO DAILY mirtazapine 7.5 mg PO BEDTIME 90 days tizanidine 2 mg PO TID PRN 30 days Tobacco use date assessed: 11/28/24 Fall risk assessment: No Falls in past year Last assessed Fall Risk: 11/28/24 Dental Screening Dental Screen Date: 11/28/24 Did you have a dental visit in the last 12 months?: Yes Did you have a dental problem in the last 6 months where you did not have access to dental care?: No Was dental information given to patient?: Patient has dentist HPI R ankle pain HPI Details Pt c/o pain in posterior ankle worse when walking for a few weeks. Pt denies injury or ankle sweling. PFSH Medical History Anxiety Vitamin D deficiency Vitamin B 12 deficiency Fatigue Neck pain Depression Hyperglycemia Hyperlipidemia HTN (hypertension) Surgical History No pertinent past surgical history Family History Father No problems noted. Mother Heart problem Social History Household Members: Spouse Housing: House Do you presently have visiting nurse or other home services: No Comment: pt observed ambulating independently w/strong and steady gait. Patient Tobacco Use Status: Never used Tobacco e-Cigarette/Vaping Use: Never Used service: No Current occupational status: retired Sexual orientation: Straight/Heterosexual Cognitive needs: No Hearing needs: No Vision needs: No Questionnaire PHQ-9 Over the last 2 weeks, how often have you been bothered by any of the following problems? 1. Little interest or pleasure in doing things: not at all 2. Feeling down, depressed, or hopeless: not at all 3. Trouble falling or staying asleep, or sleeping too much: not at all 4. Feeling tired or having little energy: not at all 5. Poor appetite or overeating: not at all 6. Feeling bad about yourself - or that you are a failure or have let yourself or your family down: not at all 7. Trouble concentrating on things, such as reading the newspaper or watching television: not at all 8. Moving or speaking so slowly that other people could have noticed. Or the opposite - being so fidgety or restless that you have been moving around a lot more than usual: not at all 9. Thoughts that you would be better off or of hurting yourself in some way: not at all Total score: 0 Depression Screening Interpretation: Negative Depression Screening Done: Yes 59300 - PHQ-9 Billing: Yes Source: Developed by Drs. Isaias Rousseau, Aria Bautista, Malik Foster and colleagues, with an educational rachelle from [employer]. Thrive Questionnaire Date Thrive assessed: 11/28/24 I am a: Patient What is your living situation today?: I have a steady place to live Within the past 12 months, did the food you bought not last and you didn't have the money to get more?: Never true Within the past 12 months, did you worry whether your food would run out before you got money to buy more?: Never true Do you have trouble paying for medicines?: No Do you have trouble getting transportation to medical appointments?: No Do you have trouble paying your heating and electricity bill?: No Do you have trouble taking care of your child, family member or friend?: No Do you have trouble with day-to-day activities such as bathing, preparing meals, shopping, managing finances, etc.?: No Are you currently unemployed and looking for a job?: No Are you interested in more education?: No Please select the resources that you would like help with: None THRIVE Score: 0 AUDIT C Alcohol Use Questionnaire (AUDIT-C) 1. How often do you have a drink containing alcohol?: Never 3. How often do you have six or more drinks on one occasion?: Never Total Score: 0 YUDITH-7 AMB Questionnaire YUDITH-7 Date YUDITH - 7 assessed: 11/28/24 Feeling nervous, anxious, or on edge: 0 = Not at all Not being able to stop or control worryin = Not at all Worrying too much about different things: 0 = Not at all Trouble relaxin = Not at all Being so restless that it is hard to sit still: 0 = Not at all Becoming easily annoyed or irritable: 0 = Not at all Feeling afraid as if something awful might happen: 0 = Not at all Total YUDITH-7 score (0-4 normal; 5-9 mild; 10-14 moderate; 15-21 severe): 0 Source: Developed by Drs. Isaias Rousseau, Aria Bautista, Malik Foster and colleagues, with an educational rachelle from [employer]. YUDITH-7 Assessment Billing YUDITH-7 Assessment Tool: YUDITH-7 Assessment 93978 Review of Systems Const All systems reviewed & are unremarkable except as noted in HPI and below Card Reports no additional complaints GI Reports no additional complaints Reports no additional complaints Physical exam (Primary Care) Vital Signs: Last Vital Signs Temp 98.2 F 11/28/24 08:13 Pulse 67 11/28/24 08:13 Resp 18 11/28/24 08:13 BP 128/64 11/28/24 08:13 Pulse Ox 97 11/28/24 08:13 Oxygen Delivery Method Room Air 11/28/24 08:13 BMI result Body Mass Index 28.7 Tobacco/Smoking Status: Tobacco use Status Tobacco use date assessed 11/28/24 11/28/24 08:21 Patient Tobacco Use Status Never used Tobacco 11/28/24 08:21 e-Cigarette/Vaping Use Never Used 11/28/24 08:21 PHQ-9: PHQ-9 Score PHQ-9: Total score 0 11/28/24 08:21 Depression Screening Interpretation: Negative Thrive Assessment: Date of Thrive Assessment Date Thrive assessed 11/28/24 11/28/24 08:21 Const General: no acute distress HENMT Head: Yes normal to inspection Resp Effort & Inspection: normal respiratory effort Auscultation: clear to auscultation bilaterally Cardio Rhythm: regular rhythm Heart sounds: S1 normal heart sound present and S2 normal heart sound present Extrem Other: R ankle Achilles tendon tenderness, no erythema and swelling Coding Level of Care Code Est Pt Level 3 (01267) Diagnoses Achilles tendinitis of right lower extremity M76.61 HTN (hypertension) I10 Additional Codes YUDITH-7 Assessment Billing - YUDITH-7 Assessment Tool: YUDITH-7 Assessment 38693 ([id number]) PHQ-9 - 28710 - PHQ-9 Billing: Yes ([id number]) Assessment & Plan Assessment & Plan (1) Achilles tendinitis of right lower extremity: Code(s): M76.61 - Achilles tendinitis, right leg Category: Medical Plan: Meloxicam and PT (2) HTN (hypertension): Code(s): I10 - Essential (primary) hypertension Category: Medical Plan: Cont meds Orders: Orders PT Evaluation and Treatment Today M76.61 - Achilles tendinitis, right leg Lipid Panel 4 Months E78.5 - Hyperlipidemia, unspecified, I10 - Essential (primary) hypertension Hemoglobin A1c 4 Months E78.5 - Hyperlipidemia, unspecified, I10 - Essential (primary) hypertension Comprehensive [place]. Panel Fast 4 Months E78.5 - Hyperlipidemia, unspecified, I10 - Essential (primary) hypertension Medications: New meloxicam 15 mg PO DAILY 10 tabs 0RF
[2024-11-28 08:13] VITALS: BP 128/64; PULSE 67; RESP 18; TEMP 36.8; O2SAT 97; BMI 28.7
== END 2024-11-28 08:36 | disposition home or self-care (01) ==
LOC: HO.HMCC 07:48
PROVIDERS: PCP Internal Medicine; Visit Provider Internal Medicine
DX: M76.61 Achilles tendinitis, right leg (principal); I10 Essential (primary) hypertension

== ENCOUNTER → 2024-11-28 07:48 | Outpatient (BNVA) | payer MEDICARE, SELFPAY | PROVIDERS: PCP Internal Medicine; Visit Provider Internal Medicine | DX: I10 Essential (primary) hypertension (principal); M25.571 Pain in right ankle and joints of right foot; M76.61 Achilles tendinitis, right leg; E78.5 Hyperlipidemia, unspecified | CPT/HCPCS: 96127; 99212 ==

== ENCOUNTER 2024-12-13 07:36 | Outpatient (AMB) | payer MEDICARE, SELFPAY ==
[2024-12-13 08:08] VITALS: BP 118/68; PULSE 68; RESP 18; TEMP 37.1; O2SAT 97; BMI 28.7
--- NOTE | 2024-12-13 08:08 | MHC.PC.OV ---
Vital Signs 12/13/24 08:08 Height 5 ft 2 in Weight 157 lb BMI 28.7 BP 118/68 Blood Pressure Location Lt brachial Position Sitting Respiration 18 Pulse 68 Pulse Source Pulse Oximeter Temp 98.7 F Temp Source Oral Pulse Oximetry (%) 97 Oxygen Delivery Method Room Air Intake Visit Reasons: folllow up Intake Note: Pt is here today for a follow up visit on swelling in R lower leg and labs. Allergies No Known Allergies (No Known Allergies*) Allergy (Verified 12/13/24 08:10) Medication List - Last Reconciled 12/13/24 by Veronica Randhawa MD acetaminophen 1,000 mg (2 x 500 mg) PO Q8H PRN 30 days amlodipine 2.5 mg PO DAILY atorvastatin 40 mg PO DAILY duloxetine 60 mg PO DAILY lidocaine 5% 1 patch topical DAILY 30 days lisinopril-hydrochlorothiazide 20-12.5 mg 1 tab PO DAILY mirtazapine 7.5 mg PO BEDTIME 90 days tizanidine 2 mg PO TID PRN 30 days Tobacco use date assessed: 11/28/24 Fall risk assessment: No Falls in past year Last assessed Fall Risk: 12/13/24 Dental Screening Dental Screen Date: 11/28/24 HPI folllow up HPI Details Patient presents for follow-up of right Achilles tendinitis. Patient reports feeling better after taking meloxicam and will be starting physical therapy. She is still reports swelling and tenderness over the right Achilles tendon. Hypertension hyperlipidemia controlled on current medications [facility] Medical History (Updated 12/13/24 @ 08:35 by Veronica Randhawa MD) Swollen R ankle Anxiety Vitamin D deficiency Vitamin B 12 deficiency Fatigue Neck pain Depression Hyperglycemia Hyperlipidemia HTN (hypertension) Surgical History No pertinent past surgical history Family History Father No problems noted. Mother Heart problem Social History Household Members: Spouse Housing: House Do you presently have visiting nurse or other home services: No Comment: pt observed ambulating independently w/strong and steady gait. Patient Tobacco Use Status: Never used Tobacco e-Cigarette/Vaping Use: Never Used service: No Current occupational status: retired Sexual orientation: Straight/Heterosexual Cognitive needs: No Hearing needs: No Vision needs: No Questionnaire PHQ-9 Over the last 2 weeks, how often have you been bothered by any of the following problems? 1. Little interest or pleasure in doing things: not at all 2. Feeling down, depressed, or hopeless: not at all 3. Trouble falling or staying asleep, or sleeping too much: not at all 4. Feeling tired or having little energy: not at all 5. Poor appetite or overeating: not at all 6. Feeling bad about yourself - or that you are a failure or have let yourself or your family down: not at all 7. Trouble concentrating on things, such as reading the newspaper or watching television: not at all 8. Moving or speaking so slowly that other people could have noticed. Or the opposite - being so fidgety or restless that you have been moving around a lot more than usual: not at all 9. Thoughts that you would be better off or of hurting yourself in some way: not at all Total score: 0 Depression Screening Interpretation: Negative Depression Screening Done: Yes Source: Developed by Drs. Isaias Rousseau, Aria Bautista, Malik Foster and colleagues, with an educational rachelle from [employer]. Thrive Questionnaire Date Thrive assessed: 11/28/24 YUDITH-7 AMB Questionnaire YUDITH-7 Date YUDITH - 7 assessed: 11/28/24 Feeling nervous, anxious, or on edge: 0 = Not at all Not being able to stop or control worryin = Not at all Worrying too much about different things: 0 = Not at all Trouble relaxin = Not at all Being so restless that it is hard to sit still: 0 = Not at all Becoming easily annoyed or irritable: 0 = Not at all Feeling afraid as if something awful might happen: 0 = Not at all Total YUDITH-7 score (0-4 normal; 5-9 mild; 10-14 moderate; 15-21 severe): 0 Source: Developed by Drs. Isaias Rousseau, Aria Bautista, Malik Foster and colleagues, with an educational rachelle from [employer]. Review of Systems Const All systems reviewed & are unremarkable except as noted in HPI and below ENT Reports no additional complaints Card Reports no additional complaints Resp Reports no additional complaints GI Reports no additional complaints Reports no additional complaints Physical exam (Primary Care) Vital Signs: Last Vital Signs Temp 98.7 F 12/13/24 08:08 Pulse 68 12/13/24 08:08 Resp 18 12/13/24 08:08 BP 118/68 12/13/24 08:08 Pulse Ox 97 12/13/24 08:08 Oxygen Delivery Method Room Air 12/13/24 08:08 BMI result Body Mass Index 28.7 Tobacco/Smoking Status: Tobacco use Status Tobacco use date assessed 11/28/24 12/13/24 08:14 Patient Tobacco Use Status Never used Tobacco 12/13/24 08:14 e-Cigarette/Vaping Use Never Used 12/13/24 08:14 PHQ-9: PHQ-9 Score PHQ-9: Total score 0 12/13/24 08:18 Depression Screening Interpretation: Negative Thrive Assessment: Date of Thrive Assessment Date Thrive assessed 11/28/24 12/13/24 08:14 Const General: no acute distress HENMT Head: Yes normal to inspection Neck Neck: Yes no lymphadenopathy and Yes supple Resp Effort & Inspection: normal respiratory effort Auscultation: clear to auscultation bilaterally Cardio Rhythm: regular rhythm Heart sounds: S1 normal heart sound present and S2 normal heart sound present Extrem Other: There is localized swelling and slight tenderness over right Achilles tendon. There is no erythema warmth, there is a full range of motion in the right ankle Coding Level of Care Code Est Pt Level 3 (17560) Diagnoses Swollen R ankle M25.471 HTN (hypertension) I10 Assessment & Plan Assessment & Plan (1) Swollen R ankle: Comment: Achilles tendonitis Code(s): M25.471 - Effusion, right ankle Category: Medical Plan: Obtain ultrasound to evaluate for this soft tissue swelling rule out a cyst, patient will start physical therapy meloxicam for 20 days is prescribed. Supportive care discussed with the patient (2) HTN (hypertension): Code(s): I10 - Essential (primary) hypertension Category: Medical Plan: Continue medications Orders: Orders US Extremity Nonvas Limited RT Today M25.471 - Effusion, right ankle Medications: Refilled meloxicam 15 mg PO DAILY 20 tabs 0RF
== END 2024-12-13 09:54 | disposition home or self-care (01) ==
LOC: HO.HMCC 07:36
PROVIDERS: PCP Internal Medicine; Visit Provider Internal Medicine
DX: M25.471 Effusion, right ankle (principal); I10 Essential (primary) hypertension

== ENCOUNTER → 2024-12-13 07:36 | Outpatient (BNVA) | payer MEDICARE, SELFPAY | LOC: CF 08:47 | PROVIDERS: PCP Internal Medicine; Visit Provider Internal Medicine | DX: M25.471 Effusion, right ankle (principal); I10 Essential (primary) hypertension; Z13.31 Encounter for screening for depression | CPT/HCPCS: 99212 ==

== ENCOUNTER 2025-03-09 08:10 | Outpatient (REF) | payer MEDICARE, SELFPAY ==
--- OUTSIDE RECORDS SUMMARY | 2025-03-09 08:14 | XMS_ITS | Continuity of Care Document ---
Author Organization [facility], [facility] PT Address [address] [place] [address] Assessment Encounter Date Assessment Date Assessment LastModified by Organization Details LastModified Time 02/05/2025 02/05/2025 Assessment: Decreased tenderness upon palpation. R achilles tendon noted. Plan: Progress as Pt leonides. [email or web address] Not available 02/05/2025 13:10:05 Plan of Treatment Reminders Order Date Submit Date Provider Last Modified By Organization Details Last Modified Time Details Appointments RECHECK 15 2024 09:00A Hussein Davis PA-C Not available Not available Not available Lab None recorded . Referral None recorded . Procedures None recorded . Surgeries None recorded . Imaging None recorded . Medication Orders None recorded . Patient Targets Encounter Date Encounter Id Patient Goals Patient Target Last Modified By Organization Details Last Modified Time 02/05/2025 [id number] 3 weeks of Right Ankle/Foot Strength motor strength: ankles: dorsiflexion: right 5 (0-5) Not available Not available Not available 3 weeks of Right Ankle/Foot Strength motor strength: ankles: plantar flexion: right 5 (0-5) Not available Not available Not available 3 weeks of Right Ankle/Foot Strength motor strength: ankles: inversion: right 5 (0-5) Not available Not available Not available 3 weeks of Right Ankle/Foot Strength motor strength: ankles: eversion: right 5 (0-5) Not available Not available Not available 3 weeks of Walking up or down stairs with step-to pattern Not available Not available Not available exterminator helper goal of Walking up or down stairs performs without symptoms Not available Not available Not available 3 weeks of Ankle ROM Right dorsiflexion (knee ex) 10 deg Not available Not available Not available 3 weeks of Ankle ROM Right eversion 10 deg Not available Not available Not available 3 weeks of Ankle ROM Right plantarflexion 45 deg Not available Not available Not available 3 weeks of Ankle ROM Right inversion 35 deg Not available Not available Not available 3 weeks of Gait and Stance: on level surfaces Not available Not available Not available [facility] goal of Gait and Stance: gait WNL Not available Not available Not available 3 weeks of Pain <4/10 Not available Not available Not available [facility] goal of Pain 0/10 Not available Not available Not available [facility] goal of Walking on uneven surfaces (level of support required when walking on uneven surfaces) No difficulty: able to walk without support Not available Not available Not available Patient InstructionsNo instructions recorded. Reason for Referral None Reported. Procedures Surgical History Date Name Laterality Status Provider Name and Address Organization Details Recorded Time 5 11708 Therapeutic Exercise (1:1) completed Marlen Altamirano, ENGLISH DRAWER [address], [place], [address], [facility] 02/07/2025 14:08:28 5 47457: Manual therapy completed Marlen Sotoer, ENGLISH DRAWER [address], [place], [address], [facility] 02/07/2025 14:08:28 5 47007 Therapeutic Exercise (1:1) completed Marlen Altamirano, ENGLISH DRAWER [address], [place], [address], [facility] 02/05/2025 13:07:01 5 71899: Manual therapy completed Marlen Formreinaldoster, ENGLISH DRAWER [address], [place], [address], [facility] 02/05/2025 13:07:01 5 14195 Therapeutic Exercise (1:1) completed Marlen Formreinaldoster, ENGLISH DRAWER [address], [place], [address], [facility] 02/01/2025 18:43:22 5 18504: Manual therapy completed Marlen Formejester, ENGLISH DRAWER [address], [place], [address], [facility] 02/01/2025 18:43:22 5 [id number] Therapeutic Exercise (1:1) completed Marlen Formejester, ENGLISH DRAWER [address], [place], [address], [facility] 01/30/2025 12:38:25 5 07481: Manual therapy completed Marlen Formejester, ENGLISH DRAWER [address], [place], [address], [facility] 01/30/2025 12:38:25 5 [id number] Therapeutic Exercise (1:1) completed Jac Lenin, PT [address], [place], [address], [facility] 01/25/2025 11:18:34 5 48164: Manual therapy completed Jac Whartono, PT [address], [place], [address], [facility] 01/25/2025 11:18:34 5 [id number] Therapeutic Exercise (1:1) completed Marlen Formemykelster, ENGLISH DRAWER [address], [place], [address], [facility] 01/23/2025 12:15:01 5 83875: Manual therapy completed Marlen Formejester, ENGLISH DRAWER [address], [place], [address], [facility] 01/23/2025 12:15:01 5 [id number] Therapeutic Exercise (1:1) completed Marlen Formejester, ENGLISH DRAWER [address], [place], [address], [facility] 01/19/2025 13:18:56 5 88433: Manual therapy completed Marlen Formejester, ENGLISH DRAWER [address], [place], [address], [facility] 01/19/2025 13:18:56 [id number] Therapeutic Exercise (1:1) completed Marlen Formejester, ENGLISH DRAWER [address], [place], [address], [facility] 01/16/2025 14:29:55 46883: Manual therapy completed Marlen Formejester, ENGLISH DRAWER [address], [place], [address], [facility] 01/16/2025 14:29:55 11723 Therapeutic Exercise (1:1) completed Marlen Formejester, ENGLISH DRAWER [address], [place], [address], [facility] 01/10/2025 12:31:36 56527: Manual therapy completed Marlen Formemykelster, ENGLISH DRAWER [address], [place], [address], [facility] 01/10/2025 12:31:36 [id number] Therapeutic Exercise (1:1) completed Marlen Formemykelster, ENGLISH DRAWER [address], [place], [address], [facility] 01/08/2025 12:21:05 32391: Manual therapy completed Marlen Formemykelster, ENGLISH DRAWER [address], [place], [address], [facility] 01/08/2025 12:21:05 [id number] Therapeutic Exercise (1:1) completed Marlen Formejester, ENGLISH DRAWER [address], [place], [address], [facility] 01/05/2025 14:39:26 44541: Manual therapy completed Marlen Formejester, ENGLISH DRAWER [address], [place], [address], [facility] 01/05/2025 14:39:26 [id number] Therapeutic Exercise (1:1) completed Marlen Hardyzachary, ENGLISH DRAWER [address], [place], [address], [facility] 01/03/2025 12:36:12 10803: Manual therapy completed Marlenramez Altamirano, ENGLISH DRAWER [address], [place], [address], [facility] 01/03/2025 12:36:12 [id number] Therapeutic Exercise (1:1) completed Marlen Hayleyzachary, ENGLISH DRAWER [address], [place], [address], [facility] 12/26/2024 14:39:52 36678: Manual therapy completed Marlen Hayleyzachary, ENGLISH DRAWER [address], [place], [address], [facility] 12/26/2024 14:40:06 92521 Therapeutic Exercise (1:1) completed Jac Phelps, PT [address], [place], [address], [facility] 12/26/2024 09:01:51 45905: Low complexity PT Eval completed Jac Phelps, PT [address], [place], [address], [facility] 12/26/2024 09:01:54 Imaging Results None recorded. Procedure Notes None recorded. Medical Equipment None Reported. Allergies No known drug allergies Medications Name Sig Start Date Stop Date Status Note LastModified by Organization Details LastModified Time atorvastatin 40 mg tablet TAKE 1 TABLET BY MOUTH DAILY active Not Available Not Available No t Available lisinopril 20 mg-hydrochloro thiazide 12.5 mg tablet TAKE 1 TABLET BY MOUTH DAILY active Not Available Not Available No t Available meloxicam 15 mg tablet TAKE 1 TABLET BY MOUTH DAILY active Not Available Not Available No t Available amlodipine 2.5 mg tablet TAKE 1 TABLET BY MOUTH DAILY active Not Available Not Available No t Available mirtazapine 7.5 mg tablet TAKE 1 TABLET BY MOUTH AT BEDTIME active Not Available Not Available No t Available duloxetine 60 mg capsule,delaye d release TAKE 1 CAPSULE BY MOUTH DAILY active Not Available Not Available No t Available Vitals None Recorded Social History None recorded. Functional Status None recorded. Mental Status None recorded. Family History Nothing Reported. Medical History No medical history recorded. Gynecological HistoryNo gynecological history recorded. Obstetrics History GPAL:G 0 P 0 0 0 0 Past Encounters Encounter ID Performer Location Encounter Start Date Encounter Closed Date Diagnosis/Indication Diagnosis SNOMED-CT Code Diagnosis ICD10 Code Diagnosis IMO Codes Diagnosis Note [id number] Marlen Formejeste r, ENGLISH DRAWER [facility] [address] [place] [address] 01/05/2025 14:20:08 01/08/2025 13:53:55 Right Achilles tendinitis [id number] 29851 M76.61 [id number] Marlen Formejeste r, ENGLISH DRAWER [facility] [address] [place] [address] 01/08/2025 12:13:30 01/08/2025 13:07:40 Right Achilles tendinitis [id number] 47462 M76.61 [id number] Marlen Formejeste r, ENGLISH DRAWER [facility] [address] [place] [address] 01/10/2025 12:18:29 01/10/2025 14:27:08 Right Achilles tendinitis [id number] 84966 M76.61 [id number] Marlen Formejeste r, ENGLISH DRAWER [facility] [address] [place] [address] 01/16/2025 12:01:25 01/16/2025 13:22:14 Right Achilles tendinitis [id number] 45559 M76.61 [id number] Marlen Formejeste r, ENGLISH DRAWER [facility] [address] [place] [address] 01/19/2025 13:05:55 01/19/2025 14:03:59 Right Achilles tendinitis [id number] 66695 M76.61 [id number] Jac Phelps, PT [facility] [address] [place] [address] 01/23/2025 11:52:06 01/23/2025 11:59:01 Right Achilles tendinitis [id number] 63257 M76.61 [id number] Jac Phelps, PT [facility] [address] [place] [address] 01/25/2025 11:57:58 01/25/2025 12:55:15 Right Achilles tendinitis [id number] 05776 M76.61 [id number] Marlen Formantonie r, ENGLISH DRAWER [facility] [address] [place] [address] 01/30/2025 11:58:43 01/30/2025 12:46:17 Right Achilles tendinitis [id number] 12131 M76.61 [id number] Marlen Formemykelste r, ENGLISH DRAWER [facility] [address] [place] [address] 02/01/2025 16:36:06 02/01/2025 17:10:05 Right Achilles tendinitis [id number] 16323 M76.61 [id number] Marlen Formemykelste r, ENGLISH DRAWER [facility] [address] [place] [address] 02/05/2025 11:55:57 02/05/2025 12:48:42 Right Achilles tendinitis [id number] 37430 M76.61 [id number] Health Concerns Section Related Observation LastModified by Organization Detai ls LastModified Time None Recorded Concern Status LastModified by Organization Details LastModified Time None Recorded Payers Encounter Date Sequence Insurance Name Policy Number Policy Bonner Covered Member ID Bonner Member ID Guarantor Name 02/05/2025 1 [place]UE (MEDICARE REPLACEMENT PPO) [id number] Candis Dobbins [id number] Candis Dobbins Notes Date Note Type Note Provider Name and Address Organization Details Recorded Time 02/05/2025 text/html Pt reports R achilles tendon is less tender today. Marlen Altamirano, ENGLISH DRAWER [address] [facility] [address], [place], [address], [facility] 02/05/2025 13:10:27 OBGyn Episode No OBEpisode recorded.
--- OUTSIDE RECORDS SUMMARY | 2025-03-09 08:15 | XMS_ITS | Continuity of Care Document ---
Author Organization [facility], [facility] Address [address] [place] [address] Assessment Encounter Date Assessment Date Assessment LastModified by Organization Details LastModified Time 01/16/2025 01/16/2025 Assessment: Some increased discomfort with toe raises noted. Plan: Progress as Pt leonides. [email or web address] Not available 01/16/2025 14:32:56 Plan of Treatment Reminders Order Date Submit [...] Modified By Organization Details Last Modified Time 01/16/2025 [id number] 3 weeks of Right Ankle/Foot Strength motor [...] pattern Not available Not available Not available terminal superintendent goal of Walking up or down stairs [...] surfaces Not available Not available Not available terminal superintendent goal of Gait and Stance: gait WNL Not available Not available Not available 3 weeks of Pain <4/10 Not available Not available Not available terminal superintendent goal of Pain 0/10 Not available Not available Not available terminal superintendent goal of Walking on uneven surfaces (level of support required when walking on uneven surfaces) No difficulty: able to walk without support Not available Not available Not available Patient InstructionsNo instructions recorded. Reason for Referral None Reported. Procedures Surgical History Date Name Laterality Status Provider Name and Address Organization Details Recorded Time 5 76888 Therapeutic Exercise (1:1) completed Marlen Altamirano, MATERIALS DEVELOPMENT ENGINEER [address], [place], [address], [facility] 02/07/2025 14:08:28 5 59912: Manual therapy completed Marlen Altamirano, MATERIALS DEVELOPMENT ENGINEER [address], [place], [address], [facility] 02/07/2025 14:08:28 5 70906 Therapeutic Exercise (1:1) completed Marlen Altamirano, MATERIALS DEVELOPMENT ENGINEER [address], [place], [address], [facility] 02/05/2025 13:07:01 5 25626: Manual therapy completed Marlen Formreinaldoster, MATERIALS DEVELOPMENT ENGINEER [address], [place], [address], [facility] 02/05/2025 13:07:01 5 [id number] Therapeutic Exercise (1:1) completed Marlen Formreinaldoster, MATERIALS DEVELOPMENT ENGINEER [address], [place], [address], [facility] 02/01/2025 18:43:22 5 06257: Manual therapy completed Marlen Formejester, MATERIALS DEVELOPMENT ENGINEER [address], [place], [address], [facility] [place] 02/01/2025 18:43:22 5 [id number] Therapeutic Exercise (1:1) completed Marlen Formejester, MATERIALS DEVELOPMENT ENGINEER [address], [place], [address], [facility] [place] 01/30/2025 12:38:25 5 35469: Manual therapy completed Marlen Formejester, MATERIALS DEVELOPMENT ENGINEER [address], [place], [address], [facility] [place] [facility] 01/30/2025 12:38:25 5 05123 Therapeutic Exercise (1:1) completed Jac Phelps, PT [address], [place], [address], [facility] 01/25/2025 11:18:34 5 46896: Manual therapy completed Jac Phelps, PT [address], [place], [address], [facility] [place] 01/25/2025 11:18:34 5 [id number] Therapeutic Exercise (1:1) completed Marlen Formemykelster, MATERIALS DEVELOPMENT ENGINEER [address], [place], [address], [facility] 01/23/2025 12:15:01 5 73767: Manual therapy completed Marlen Formejester, MATERIALS DEVELOPMENT ENGINEER [address], [place], [address], [facility] 01/23/2025 12:15:01 5 35533 Therapeutic Exercise (1:1) completed Marlen Formejester, MATERIALS DEVELOPMENT ENGINEER [address], [place], [address], [facility] 01/19/2025 13:18:56 5 01145: Manual therapy completed Marlen Formejester, MATERIALS DEVELOPMENT ENGINEER [address], [place], [address], [facility] [place] 01/19/2025 13:18:56 07796 Therapeutic Exercise (1:1) completed Marlen Formejester, MATERIALS DEVELOPMENT ENGINEER [address], [place], [address], [facility] [place] 01/16/2025 14:29:55 06118: Manual therapy completed Marlen Formejester, MATERIALS DEVELOPMENT ENGINEER [address], [place], [address], [facility] [place] [facility] 01/16/2025 14:29:55 [id number] Therapeutic Exercise (1:1) completed Marlen Formejester, MATERIALS DEVELOPMENT ENGINEER [address], [place], [address], [facility] [place] 01/10/2025 12:31:36 09365: Manual therapy completed Marlen Formemykelster, MATERIALS DEVELOPMENT ENGINEER [address], [place], [address], [facility] [place] 01/10/2025 12:31:36 [id number] Therapeutic Exercise (1:1) completed Marlen Formemykelster, MATERIALS DEVELOPMENT ENGINEER [address], [place], [address], [facility] [place] [facility] 01/08/2025 12:21:05 54311: Manual therapy completed Marlen Formemykelster, MATERIALS DEVELOPMENT ENGINEER [address], [place], [address], [facility] [place] [facility] 01/08/2025 12:21:05 [id number] Therapeutic Exercise (1:1) completed Marlen Formejester, MATERIALS DEVELOPMENT ENGINEER [address], [place], [address], [facility] [place] [facility] 01/05/2025 14:39:26 71686: Manual therapy completed Marlen Formejester, MATERIALS DEVELOPMENT ENGINEER [address], [place], [address], [facility] 01/05/2025 14:39:26 06242 Therapeutic Exercise (1:1) completed Marlen Hardyzachary, MATERIALS DEVELOPMENT ENGINEER [address], [place], [address], [facility] 01/03/2025 12:36:12 97182: Manual therapy completed Marlen Hayleyzachary, MATERIALS DEVELOPMENT ENGINEER [address], [place], [address], [facility] 01/03/2025 12:36:12 [id number] Therapeutic Exercise (1:1) completed Marlen Hayleyzachary, MATERIALS DEVELOPMENT ENGINEER [address], [place], [address], [facility] 12/26/2024 14:39:52 54367: Manual therapy completed Marlen Hayleyzachary, MATERIALS DEVELOPMENT ENGINEER [address], [place], [address], [facility] [place] 12/26/2024 14:40:06 [id number] Therapeutic Exercise (1:1) completed Jac Phelps, PT [address], [place], [address], [facility] 12/26/2024 09:01:51 36570: Low complexity PT Eval completed Jac Phelps, PT [address], [place], [address], [facility] 12/26/2024 09:01:54 Imaging Results [...] ICD10 Code Diagnosis IMO Codes Diagnosis Note [id number] Jac Phelps, PT [facility] [address] [place] [address] 12/21/2024 11:24:57 12/21/2024 12:43:13 Right Achilles tendinitis [id number] [address] [place] [address] [id number] Marlen Formejeste r, MATERIALS DEVELOPMENT ENGINEER [facility] [address] [place] [address] 12/26/2024 11:25:26 12/26/2024 12:42:14 Right Achilles tendinitis [id number] [address] [place] [address] [id number] Marlen Formejeste r, MATERIALS DEVELOPMENT ENGINEER [facility] [address] [place] [address] 01/03/2025 12:27:42 01/03/2025 13:44:41 Right Achilles tendinitis [id number] 76043 76.61 [id number] Marlen Formejeste r, MATERIALS DEVELOPMENT ENGINEER [facility] [address] [place] [address] 01/05/2025 14:20:08 01/08/2025 13:53:55 Right Achilles tendinitis [id number] 88721 76.61 [id number] Marlen Formejeste r, MATERIALS DEVELOPMENT ENGINEER [facility] [address] [place] [address] 01/08/2025 12:13:30 01/08/2025 13:07:40 Right Achilles tendinitis [id number] 13231 M76.61 [id number] Marlen toledo, MATERIALS DEVELOPMENT ENGINEER [facility] [address] [place] [address] 01/10/2025 12:18:29 01/10/2025 14:27:08 Right Achilles tendinitis [id number] 72562 M76.61 [id number] Marlen Whalen r, MATERIALS DEVELOPMENT ENGINEER [facility] [address] [place] [address] 01/16/2025 12:01:25 01/16/2025 13:22:14 Right Achilles tendinitis [id number] M76.61 [id number] Health Concerns Section Related Observation LastModified by Organization Detai ls LastModified Time None Recorded Concern Status LastModified by Organization Details LastModified Time None Recorded Payers Encounter Date Sequence Insurance Name Policy Number Policy Bonner Covered Member ID Bonner Member ID Guarantor Name 01/16/2025 1 [facility]: MEDICARE PPO BLUE (MEDICARE REPLACEMENT PPO) [id number] Candis Dobbins [id number] Candis Dobbins Notes Date Note Type Note Provider Name and Address Organization Details Recorded Time 01/16/2025 text/html Pt reports cont R heel pain thanh when trying to stand on toes when getting something from high shelves. Marlen Altamirano, MATERIALS DEVELOPMENT ENGINEER [address], [place], [address], [facility] [place] [facility] 01/16/2025 14:33:17 OBGyn Episode No OBEpisode recorded.
--- OUTSIDE RECORDS SUMMARY | 2025-03-09 08:15 | XMS_ITS | Continuity of Care Document ---
Author Organization [facility], [facility] PT Address [address] [place] [address] Assessment Encounter Date Assessment Date Assessment LastModified by Organization Details LastModified Time 02/07/2025 02/07/2025 Assessment: Cont tenderness upon palpation R achilles tendon while massage. Plan:DC PT secondary to lack of progress at this point. [email or web address] Not available 02/07/2025 14:14:27 Plan of Treatment Reminders Order Date Submit Date Provider Last Modified By Organization Details Last Modified Time Details Appointments RECHECK 15 2024 09:00A M Renee Davis PA-C Not available Not available Not available Lab None recorded . Referral None recorded . Procedures None recorded . Surgeries None recorded . Imaging None recorded . Medication Orders None recorded . Patient Targets Encounter Date Encounter Id Patient Goals Patient Target Last Modified By Organization Details Last Modified Time 02/07/2025 [id number] 3 weeks of Right Ankle/Foot Strength motor [...] pattern Not available Not available Not available [facility] goal of Walking up or down stairs [...] surfaces Not available Not available Not available termite exterminator goal of Gait and Stance: gait WNL Not available Not available Not available 3 weeks of Pain <4/10 Not available Not available Not available [facility] goal of Pain 0/10 Not available Not available Not available termite exterminator goal of Walking on uneven surfaces (level of support required when walking on uneven surfaces) No difficulty: able to walk without support Not available Not available Not available Patient InstructionsNo instructions recorded. Reason for Referral None Reported. Procedures Surgical History Date Name Laterality Status Provider Name and Address Organization Details Recorded Time 5 51065 Therapeutic Exercise (1:1) completed Marlen Altamirano, INJECTION MOLDER [address], [place], [address], [facility] 02/07/2025 14:08:28 5 86783: Manual therapy completed Marlen Altamirano, INJECTION MOLDER [address], [place], [address], [facility] 02/07/2025 14:08:28 5 03851 Therapeutic Exercise (1:1) completed Marlen Altamirano, INJECTION MOLDER [address], [place], [address], [facility] 02/05/2025 13:07:01 5 33687: Manual therapy completed Marlen Altamirano, INJECTION MOLDER [address], [place], [address], [facility] 02/05/2025 13:07:01 5 58919 Therapeutic Exercise (1:1) completed Marlen Formreinaldoster, INJECTION MOLDER [address], [place], [address], [facility] 02/01/2025 18:43:22 5 90646: Manual therapy completed Marlen Formejester, INJECTION MOLDER [address], [place], [address], [facility] 02/01/2025 18:43:22 5 98212 Therapeutic Exercise (1:1) completed Marlen Formejester, INJECTION MOLDER [address], [place], [address], [facility] 01/30/2025 12:38:25 5 86641: Manual therapy completed Marlen Formejester, INJECTION MOLDER [address], [place], [address], [facility] 01/30/2025 12:38:25 5 80567 Therapeutic Exercise (1:1) completed Jaclilliana Whartono, PT [address], [place], [address], [facility] 01/25/2025 11:18:34 5 73575: Manual therapy completed Jac Lenin, PT [address], [place], [address], [facility] 01/25/2025 11:18:34 5 42352 Therapeutic Exercise (1:1) completed Marlen Formemykelster, INJECTION MOLDER [address], [place], [address], [facility] 01/23/2025 12:15:01 5 46332: Manual therapy completed Marlen Formejester, INJECTION MOLDER [address], [place], [address], [facility] 01/23/2025 12:15:01 5 [id number] Therapeutic Exercise (1:1) completed Marlen Formejester, INJECTION MOLDER [address], [place], [address], [facility] 01/19/2025 13:18:56 5 11078: Manual therapy completed Marlen Formejester, INJECTION MOLDER [address], [place], [address], [facility] 01/19/2025 13:18:56 72452 Therapeutic Exercise (1:1) completed Marlen Formejester, INJECTION MOLDER [address], [place], [address], [facility] 01/16/2025 14:29:55 60106: Manual therapy completed Marlen Formejester, INJECTION MOLDER [address], [place], [address], [facility] 01/16/2025 14:29:55 99530 Therapeutic Exercise (1:1) completed Marlen Formejester, INJECTION MOLDER [address], [place], [address], [facility] 01/10/2025 12:31:36 88424: Manual therapy completed Marlen Formejester, INJECTION MOLDER [address], [place], [address], [facility] 01/10/2025 12:31:36 [id number] Therapeutic Exercise (1:1) completed Marlen Formejester, INJECTION MOLDER [address], [place], [address], [facility] 01/08/2025 12:21:05 82985: Manual therapy completed Marlen Formejester, INJECTION MOLDER [address], [place], [address], [facility] 01/08/2025 12:21:05 01445 Therapeutic Exercise (1:1) completed Marlen Formejester, INJECTION MOLDER [address], [place], [address], [facility] 01/05/2025 14:39:26 52645: Manual therapy completed Marlen Formejester, INJECTION MOLDER [address], [place], [address], [facility] 01/05/2025 14:39:26 19702 Therapeutic Exercise (1:1) completed Marlen Portilloster, INJECTION MOLDER [address], [place], [address], [facility] 01/03/2025 12:36:12 20865: Manual therapy completed Marlen Formzaidamykelster, INJECTION MOLDER [address], [place], [address], [facility] 01/03/2025 12:36:12 [id number] Therapeutic Exercise (1:1) completed Marlen Hardyzaidamykeler, INJECTION MOLDER [address], [place], [address], [facility] 12/26/2024 14:39:52 03556: Manual therapy completed Marlen Sotoer, INJECTION MOLDER [address], [place], [address], [facility] 12/26/2024 14:40:06 [id number] Therapeutic Exercise (1:1) completed Jac Phelps, PT [address], [place], [address], [facility] 12/26/2024 09:01:51 38552: Low complexity PT Eval completed Jac Phelps, PT [address], [place], [address], [facility] 12/26/2024 09:01:54 Imaging Results [...] ICD10 Code Diagnosis IMO Codes Diagnosis Note [id number] Marlen Formejeste r, INJECTION MOLDER [facility] [address] [place] [address] 01/08/2025 12:13:30 01/08/2025 13:07:40 Right Achilles tendinitis [id number] 12757 M76.61 [id number] Marlen Formejeste r, INJECTION MOLDER [facility] [address] [place] [address] 01/10/2025 12:18:29 01/10/2025 14:27:08 Right Achilles tendinitis [id number] 28278 M76.61 [id number] Marlen Formejeste r, INJECTION MOLDER [facility] [address] [place] [address] 01/16/2025 12:01:25 01/16/2025 13:22:14 Right Achilles tendinitis [id number] 40240 M76.61 [id number] Marlen Formejeste r, INJECTION MOLDER [facility] [address] [place] [address] 01/19/2025 13:05:55 01/19/2025 14:03:59 Right Achilles tendinitis [id number] 22757 M76.61 [id number] Jac Phelps, PT [facility] [address] [place] [address] 01/23/2025 11:52:06 01/23/2025 11:59:01 Right Achilles tendinitis [id number] 03404 M76.61 [id number] Jac Phelps, PT [facility] [address] [place] [address] 01/25/2025 11:57:58 01/25/2025 12:55:15 Right Achilles tendinitis [id number] 52680 M76.61 [id number] Marlen Formejeste r, INJECTION MOLDER [facility] [address] [place] [address] 01/30/2025 11:58:43 01/30/2025 12:46:17 Right Achilles tendinitis [id number] 91577 M76.61 [id number] Marlen Formejeste r, INJECTION MOLDER [facility] [address] [place] [address] 02/01/2025 16:36:06 02/01/2025 17:10:05 Right Achilles tendinitis [id number] 96410 M76.61 [id number] Marlen Formejeste r, INJECTION MOLDER [facility] [address] [place] [address] 02/05/2025 11:55:57 02/05/2025 12:48:42 Right Achilles tendinitis [id number] 01902 M76.61 [id number] Marlen Formejeste r, INJECTION MOLDER [facility] [address] [place] [address] 02/07/2025 11:59:08 02/07/2025 12:31:47 Right Achilles tendinitis [id number] 42741 M76.61 [id number] Health Concerns Section Related Observation LastModified by Organization Detai ls LastModified Time None Recorded Concern Status LastModified by Organization Details LastModified Time None Recorded Payers Encounter Date Sequence Insurance Name Policy Number Policy Bonner Covered Member ID Bonner Member ID Guarantor Name 02/07/2025 1 [place] (MEDICARE [place]PLACEMENT PPO) [id number] Candis Dobbins [id number] Candis Dobbins Notes Date Note Type Note Provider Name and Address Organization Details Recorded Time 02/07/2025 text/html Pt reports cont achilles tendon pain, reports she does not think she is getting better at this point. Marlen Altamirano, INJECTION MOLDER [address] [facility] [address], [place], [address], [facility] 02/07/2025 14:14:48 OBGyn Episode No OBEpisode recorded.
--- OUTSIDE RECORDS SUMMARY | 2025-03-09 08:15 | XMS_ITS | Continuity of Care Document ---
Author Organization [facility] PT Address [address] [place] [address] Assessment Encounter Date Assessment Date Assessment LastModified by Organization Details LastModified Time 01/08/2025 01/08/2025 Assessment: Cont visible indintation on achilles tendon noted that is tender to touch. Plan: Progress as Pt leonides. [email or web address] Not available 01/08/2025 13:38:57 Plan of Treatment Reminders Order Date Submit [...] Modified By Organization Details Last Modified Time 01/08/2025 [id number] 3 weeks of Right Ankle/Foot Strength motor [...] pattern Not available Not available Not available termite treater goal of Walking up or down stairs [...] surfaces Not available Not available Not available penitentiary goal of Gait and Stance: gait WNL Not available Not available Not available 3 weeks of Pain <4/10 Not available Not available Not available termite treater goal of Pain 0/10 Not available Not available Not available penitentiary goal of Walking on uneven surfaces (level of support required when walking on uneven surfaces) No difficulty: able to walk without support Not available Not available Not available Patient InstructionsNo instructions recorded. Reason for Referral None Reported. Procedures Surgical History Date Name Laterality Status Provider Name and Address Organization Details Recorded Time 5 02751 Therapeutic Exercise (1:1) completed aMrlen Altamirano, REGRIND MILL OPERATOR [address], [place], [address], [facility] 02/07/2025 14:08:28 5 58662: Manual therapy completed Marlen Sotoer, REGRIND MILL OPERATOR [address], [place], [address], [facility] 02/07/2025 14:08:28 5 50798 Therapeutic Exercise (1:1) completed Marlen Altamirano, REGRIND MILL OPERATOR [address], [place], [address], [facility] 02/05/2025 13:07:01 5 13559: Manual therapy completed Marlen Formreinaldoster, REGRIND MILL OPERATOR [address], [place], [address], [facility] 02/05/2025 13:07:01 5 33379 Therapeutic Exercise (1:1) completed Marlen Formreinaldoster, REGRIND MILL OPERATOR [address], [place], [address], [facility] 02/01/2025 18:43:22 5 54086: Manual therapy completed Marlen Formejester, REGRIND MILL OPERATOR [address], [place], [address], [facility] 02/01/2025 18:43:22 5 76963 Therapeutic Exercise (1:1) completed Marlen Formejester, REGRIND MILL OPERATOR [address], [place], [address], [facility] 01/30/2025 12:38:25 5 15103: Manual therapy completed Marlen Formejester, REGRIND MILL OPERATOR [address], [place], [address], [facility] 01/30/2025 12:38:25 5 81098 Therapeutic Exercise (1:1) completed Jaclilliana Whartono, PT [address], [place], [address], [facility] 01/25/2025 11:18:34 5 09973: Manual therapy completed Jac Whartono, PT [address], [place], [address], [facility] 01/25/2025 11:18:34 5 60116 Therapeutic Exercise (1:1) completed Marlen Formemykelster, REGRIND MILL OPERATOR [address], [place], [address], [facility] 01/23/2025 12:15:01 5 47667: Manual therapy completed Marlen Formejester, REGRIND MILL OPERATOR [address], [place], [address], [facility] 01/23/2025 12:15:01 5 56005 Therapeutic Exercise (1:1) completed Marlen Formejester, REGRIND MILL OPERATOR [address], [place], [address], [facility] 01/19/2025 13:18:56 5 52746: Manual therapy completed Marlen Formejester, REGRIND MILL OPERATOR [address], [place], [address], [facility] 01/19/2025 13:18:56 90280 Therapeutic Exercise (1:1) completed Marlen Formejester, REGRIND MILL OPERATOR [address], [place], [address], [facility] 01/16/2025 14:29:55 72195: Manual therapy completed Marlen Formejester, REGRIND MILL OPERATOR [address], [place], [address], [facility] 01/16/2025 14:29:55 55567 Therapeutic Exercise (1:1) completed Marlen Formejester, REGRIND MILL OPERATOR [address], [place], [address], [facility] 01/10/2025 12:31:36 42658: Manual therapy completed Marlen Formejester, REGRIND MILL OPERATOR [address], [place], [address], [facility] 01/10/2025 12:31:36 [id number] Therapeutic Exercise (1:1) completed Marlen Formejester, REGRIND MILL OPERATOR [address], [place], [address], [facility] 01/08/2025 12:21:05 38379: Manual therapy completed Marlen Formejester, REGRIND MILL OPERATOR [address], [place], [address], [facility] 01/08/2025 12:21:05 [id number] Therapeutic Exercise (1:1) completed Marlen Formejester, REGRIND MILL OPERATOR [address], [place], [address], [facility] 01/05/2025 14:39:26 01036: Manual therapy completed Marlen Formejester, REGRIND MILL OPERATOR [address], [place], [address], [facility] 01/05/2025 14:39:26 14101 Therapeutic Exercise (1:1) completed Marlen Hardyzaidamykelster, REGRIND MILL OPERATOR [address], [place], [address], [facility] 01/03/2025 12:36:12 87744: Manual therapy completed Marlen Hardyreinaldoster, REGRIND MILL OPERATOR [address], [place], [address], [facility] 01/03/2025 12:36:12 36145 Therapeutic Exercise (1:1) completed Marlen Hardyzaidaopaler, REGRIND MILL OPERATOR [address], [place], [address], [facility] 12/26/2024 14:39:52 99735: Manual therapy completed Marlen Portilloster, REGRIND MILL OPERATOR [address], [place], [address], [facility] 12/26/2024 14:40:06 84992 Therapeutic Exercise (1:1) completed Jac Phelps, PT [address], [place], [address], [facility] 12/26/2024 09:01:51 93079: Low complexity PT Eval completed Jac Phelps, PT [address], [place], [address], [facility] 12/26/2024 09:01:54 Imaging Results [...] ICD10 Code Diagnosis IMO Codes Diagnosis Note [id number] Jac Phelps, PT [facility] [address] [place] [address] 12/21/2024 11:24:57 12/21/2024 12:43:13 Right Achilles tendinitis [id number] [address] [place], [place] [address] [id number] Marlen Formejeste r, REGRIND MILL OPERATOR [facility] [address] [place] [address] 12/26/2024 11:25:26 12/26/2024 12:42:14 Right Achilles tendinitis [id number] 80980 76.61 [id number] Marlen Formejeste r, REGRIND MILL OPERATOR [facility] [address] [place] [address] 01/03/2025 12:27:42 01/03/2025 13:44:41 Right Achilles tendinitis [id number] 48202 76.61 [id number] Marlen Formejeste r, REGRIND MILL OPERATOR [facility] [address] [place] [address] 01/05/2025 14:20:08 01/08/2025 13:53:55 Right Achilles tendinitis [id number] 06078 M76.61 [id number] Marlen Formejeste r, REGRIND MILL OPERATOR [facility] [address] [place] [address] 01/08/2025 12:13:30 01/08/2025 13:07:40 Right Achilles tendinitis [id number] 97974 M76.61 [id number] Health Concerns Section Related Observation LastModified by Organization Detai ls LastModified Time None Recorded Concern Status LastModified by Organization Details LastModified Time None Recorded Payers Encounter Date Sequence Insurance Name Policy Number Policy Bonner Covered Member ID Bonner Member ID Guarantor Name 01/08/[address] [facility] [place] BLUE (MEDICARE REPLACEMENT PPO) [id number] Candis Dobbins [id number] Candis Dobbins Notes Date Note Type Note Provider Name and Address Organization Details Recorded Time 01/08/2025 text/html Pt reports cont pain when touching the bump on her acchilles tendon, and when bending the leg when trying to pick something up from the floor. Marlen Altamirano, REGRIND MILL OPERATOR [address], [place], [address], [facility] 01/08/2025 13:39:34 OBGyn Episode No OBEpisode recorded.
--- OUTSIDE RECORDS SUMMARY | 2025-03-09 08:15 | XMS_ITS | Continuity of Care Document ---
Author Organization [facility], [facility] PT Address [address] [place] [address] Assessment Encounter Date Assessment Date Assessment LastModified by Organization Details LastModified Time 01/19/2025 01/19/2025 Assessment: Increased tenderness upon palpation to R achilles tendon noted today. Plan: Progress as Pt leonides. [email or web address] Not available 01/19/2025 15:21:48 Plan of Treatment Reminders Order Date Submit [...] Modified By Organization Details Last Modified Time 01/19/2025 [id number] 3 weeks of Right Ankle/Foot Strength motor [...] pattern Not available Not available Not available halfway goal of Walking up or down stairs [...] surfaces Not available Not available Not available remote computer terminal operator goal of Gait and Stance: gait WNL Not available Not available Not available 3 weeks of Pain <4/10 Not available Not available Not available halfway goal of Pain 0/10 Not available Not available Not available halfway goal of Walking on uneven surfaces (level of support required when walking on uneven surfaces) No difficulty: able to walk without support Not available Not available Not available Patient InstructionsNo instructions recorded. Reason for Referral None Reported. Procedures Surgical History Date Name Laterality Status Provider Name and Address Organization Details Recorded Time 5 42226 Therapeutic Exercise (1:1) completed Marlen Formantonier, LITHOGRAPH PRINTER [address], [place], [address], [facility] 02/07/2025 14:08:28 5 87865: Manual therapy completed Marlen Formantonier, LITHOGRAPH PRINTER [address], [place], [address], [facility] 02/07/2025 14:08:28 5 30892 Therapeutic Exercise (1:1) completed Marlen Formreinaldoster, LITHOGRAPH PRINTER [address], [place], [address], [facility] 02/05/2025 13:07:01 5 01260: Manual therapy completed Marlen Formemykelster, LITHOGRAPH PRINTER [address], [place], [address], [facility] 02/05/2025 13:07:01 5 45523 Therapeutic Exercise (1:1) completed Marlen Formemykelster, LITHOGRAPH PRINTER [address], [place], [address], [facility] 02/01/2025 18:43:22 5 06131: Manual therapy completed Marlen Formejester, LITHOGRAPH PRINTER [address], [place], [address], [facility] 02/01/2025 18:43:22 5 79660 Therapeutic Exercise (1:1) completed Marlen Formejester, LITHOGRAPH PRINTER [address], [place], [address], [facility] 01/30/2025 12:38:25 5 25341: Manual therapy completed Marlen Formejester, LITHOGRAPH PRINTER [address], [place], [address], [facility] 01/30/2025 12:38:25 5 88370 Therapeutic Exercise (1:1) completed Jac Lenin, PT [address], [place], [address], [facility] 01/25/2025 11:18:34 5 34931: Manual therapy completed Jac Phelps, PT [address], [place], [address], [facility] 01/25/2025 11:18:34 5 55401 Therapeutic Exercise (1:1) completed Marlen Formemykelster, LITHOGRAPH PRINTER [address], [place], [address], [facility] 01/23/2025 12:15:01 5 91391: Manual therapy completed Marlen Formejester, LITHOGRAPH PRINTER [address], [place], [address], [facility] 01/23/2025 12:15:01 5 80987 Therapeutic Exercise (1:1) completed Marlen Formejester, LITHOGRAPH PRINTER [address], [place], [address], [facility] 01/19/2025 13:18:56 5 95700: Manual therapy completed Marlen Formejester, LITHOGRAPH PRINTER [address], [place], [address], [facility] 01/19/2025 13:18:56 31028 Therapeutic Exercise (1:1) completed Marlen Formejester, LITHOGRAPH PRINTER [address], [place], [address], [facility] 01/16/2025 14:29:55 95349: Manual therapy completed Marlen Formejester, LITHOGRAPH PRINTER [address], [place], [address], [facility] 01/16/2025 14:29:55 81375 Therapeutic Exercise (1:1) completed Marlen Formejester, LITHOGRAPH PRINTER [address], [place], [address], [facility] 01/10/2025 12:31:36 53926: Manual therapy completed Marlen Formejester, LITHOGRAPH PRINTER [address], [place], [address], [facility] 01/10/2025 12:31:36 65580 Therapeutic Exercise (1:1) completed Marlen Formemykelster, LITHOGRAPH PRINTER [address], [place], [address], [facility] 01/08/2025 12:21:05 11265: Manual therapy completed Marlen Formejester, LITHOGRAPH PRINTER [address], [place], [address], [facility] 01/08/2025 12:21:05 95305 Therapeutic Exercise (1:1) completed Marlen Formejester, LITHOGRAPH PRINTER [address], [place], [address], [facility] 01/05/2025 14:39:26 53235: Manual therapy completed Marlen Formejester, LITHOGRAPH PRINTER [address], [place], [address], [facility] 01/05/2025 14:39:26 19757 Therapeutic Exercise (1:1) completed Marlen Hardyzachary, LITHOGRAPH PRINTER [address], [place], [address], [facility] 01/03/2025 12:36:12 89444: Manual therapy completed Marlenramez Altamirano, LITHOGRAPH PRINTER [address], [place], [address], [facility] 01/03/2025 12:36:12 [id number] Therapeutic Exercise (1:1) completed Marlen Hayleyzachary, LITHOGRAPH PRINTER [address], [place], [address], [facility] 12/26/2024 14:39:52 50786: Manual therapy completed Marlen Hardyzachary, LITHOGRAPH PRINTER [address], [place], [address], [facility] 12/26/2024 14:40:06 15426 Therapeutic Exercise (1:1) completed Jac Phelps, PT [address], [place], [address], [facility] 12/26/2024 09:01:51 93651: Low complexity PT Eval completed Jac Phelps, PT [address], [place], [address], [facility] 12/26/2024 09:01:54 Imaging Results [...] ICD10 Code Diagnosis IMO Codes Diagnosis Note [id number] Jac Phelps, PT [facility] [address] [place] [address] 12/21/2024 11:24:57 12/21/2024 12:43:13 Right Achilles tendinitis [id number] [address] [place] [address].61 [id number] Marlen Formejeste r, LITHOGRAPH PRINTER [facility] [address] [place] [address] 12/26/2024 11:25:26 12/26/2024 12:42:14 Right Achilles tendinitis [id number] 04557 76.61 [id number] Marlen Formejeste r, LITHOGRAPH PRINTER [facility] [address] [place] [address] 01/03/2025 12:27:42 01/03/2025 13:44:41 Right Achilles tendinitis [id number] 47363 76.61 [id number] Marlen Formejeste r, LITHOGRAPH PRINTER [facility] [address] [place] [address] 01/05/2025 14:20:08 01/08/2025 13:53:55 Right Achilles tendinitis [id number] 68616 76.61 [id number] Marlen Formejeste r, LITHOGRAPH PRINTER [facility] [address] [place] [address] 01/08/2025 12:13:30 01/08/2025 13:07:40 Right Achilles tendinitis [id number] 95774 M76.61 [id number] Marlen Whalen r, LITHOGRAPH PRINTER [facility] [address] [place] [address] 01/10/2025 12:18:29 01/10/2025 14:27:08 Right Achilles tendinitis [id number] 88883 M76.61 [id number] Marlen Whalen r, LITHOGRAPH PRINTER [facility] [address] [place] [address] 01/16/2025 12:01:25 01/16/2025 13:22:14 Right Achilles tendinitis [id number] 05902 M76.61 [id number] Marlen Whalen r, LITHOGRAPH PRINTER [facility] [address] [place] [address] 01/19/2025 13:05:55 01/19/2025 14:03:59 Right Achilles tendinitis [id number] M76.61 [id number] Health Concerns Section Related Observation LastModified by Organization Detai ls LastModified Time None Recorded Concern Status LastModified by Organization Details LastModified Time None Recorded Payers Encounter Date Sequence Insurance Name Policy Number Policy Bonner Covered Member ID Bonner Member ID Guarantor Name 01/19/2025 1 [facility] MEDIC[place] P[place] BLUE (MEDICARE REPLACEMENT PPO) [id number] Candis Dobbins [id number] Candis Dobbins Notes Date Note Type Note Provider Name and Address Organization Details Recorded Time 01/19/2025 text/html Pt reports that the bump on her heel still hurts. Marlen Altamirano, LITHOGRAPH PRINTER [address], [place], [address], [facility] 01/19/2025 15:22:07 OBGyn Episode No OBEpisode recorded.
--- OUTSIDE RECORDS SUMMARY | 2025-03-09 08:15 | XMS_ITS | Continuity of Care Document ---
Author Organization [facility], [facility] PT Address [address] [place] [address] Assessment Encounter Date Assessment Date Assessment LastModified by Organization Details LastModified Time 12/21/2024 12/21/2024 Assessment: Patient presents with signs and symptoms that are consistent with Achilles tendonitis, including localized tenderness to palpation, pain with resisted plantar flexion, and difficulty performing functional movements such as push off during gait. Plan: Continued PT is recommended at 2x/week for the next 6 weeks to decrease pain, improve ankle ROM, strength, and functional gait mechanics. 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 Reason for Referral None Reported. Procedures Surgical History Date Name Laterality Status Provider Name and Address Organization Details Recorded Time 5 60756 Therapeutic Exercise (1:1) completed Marlen Sotoer, AUTO SERVICER [address], [place], [address], [facility] 02/07/2025 14:08:28 5 90257: Manual therapy completed Marlen Altamirano, AUTO SERVICER [address], [place], [address], [facility] 02/07/2025 14:08:28 5 96753 Therapeutic Exercise (1:1) completed Marlen Formreinaldoster, AUTO SERVICER [address], [place], [address], [facility] 02/05/2025 13:07:01 5 68771: Manual therapy completed Marlen Portilloster, AUTO SERVICER [address], [place], [address], [facility] 02/05/2025 13:07:01 5 03064 Therapeutic Exercise (1:1) completed Marlen Formreinaldoster, AUTO SERVICER [address], [place], [address], [facility] 02/01/2025 18:43:22 5 38194: Manual therapy completed Marlen Altamirano, AUTO SERVICER [address], [place], [address], [facility] 02/01/2025 18:43:22 5 54375 Therapeutic Exercise (1:1) completed Marlen Altamirano, AUTO SERVICER [address], [place], [address], [facility] 01/30/2025 12:38:25 5 95535: Manual therapy completed Marlen Altamirano, AUTO SERVICER [address], [place], [address], [facility] 01/30/2025 12:38:25 5 10109 Therapeutic Exercise (1:1) completed Jac Phelps, PT [address], [place], [address], [facility] 01/25/2025 11:18:34 5 46551: Manual therapy completed Jac Phelps, PT [address], [place], [address], [facility] 01/25/2025 11:18:34 5 12007 Therapeutic Exercise (1:1) completed Marlen Altamirano, AUTO SERVICER [address], [place], [address], [facility] 01/23/2025 12:15:01 5 32262: Manual therapy completed Marlen Altamirano, AUTO SERVICER [address], [place], [address], [facility] 01/23/2025 12:15:01 5 38625 Therapeutic Exercise (1:1) completed Marlen Altamirano, AUTO SERVICER [address], [place], [address], [facility] 01/19/2025 13:18:56 44609: Manual therapy completed Marlen Formreinaldoster, AUTO SERVICER [address], [place], [address], [facility] 01/19/2025 13:18:56 84789 Therapeutic Exercise (1:1) completed Marlen Formreinaldoster, AUTO SERVICER [address], [place], [address], [facility] 01/16/2025 14:29:55 54941: Manual therapy completed Marlen Formzachary, AUTO SERVICER [address], [place], [address], [facility] 01/16/2025 14:29:55 22359 Therapeutic Exercise (1:1) completed Marlen Formzachary, AUTO SERVICER [address], [place], [address], [facility] 01/10/2025 12:31:36 51295: Manual therapy completed Marlen Altamirano, AUTO SERVICER [address], [place], [address], [facility] 01/10/2025 12:31:36 [id number] Therapeutic Exercise (1:1) completed Marlen Formzachary, AUTO SERVICER [address], [place], [address], [facility] 01/08/2025 12:21:05 12469: Manual therapy completed Marlen Formreinaldoster, AUTO SERVICER [address], [place], [address], [facility] 01/08/2025 12:21:05 69709 Therapeutic Exercise (1:1) completed Marlen Formreinaldoster, AUTO SERVICER [address], [place], [address], [facility] 01/05/2025 14:39:26 04546: Manual therapy completed Marlen Altamirano, AUTO SERVICER [address], [place], [address], [facility] 01/05/2025 14:39:26 91515 Therapeutic Exercise (1:1) completed Marlen Formzachary, AUTO SERVICER [address], [place], [address], [facility] 01/03/2025 12:36:12 30848: Manual therapy completed Marlen Altamirano, AUTO SERVICER [address], [place], [address], [facility] 01/03/2025 12:36:12 10629 Therapeutic Exercise (1:1) completed Marlen Altamirano, AUTO SERVICER [address] [facility], [place], [address], [facility] 12/26/2024 14:39:52 61442: Manual therapy completed Marlen Altamirano, AUTO SERVICER [address] [facility], [place], [address], [facility] 12/26/2024 14:40:06 55281 Therapeutic Exercise (1:1) completed Jac Phelps, PT [address] [facility], [place], [address], [facility] 12/26/2024 09:01:51 30117: Low complexity PT Eval completed Jac Phelps, PT [address], [place], [address], [facility] 12/26/2024 09:01:54 Imaging Results [...] ICD10 Code Diagnosis IMO Codes Diagnosis Note [id number] MD [facility] [address] [place] [address] 11/30/2024 14:24:24 12/05/2024 08:43:15 Right Achilles tendinitis [id number] 20428 M76.61 [id number] Jac Phelps, PT [facility] [address] [place] [address] 12/21/2024 11:24:57 12/21/2024 12:43:13 Right Achilles tendinitis [id number] 96851 M76.61 [id number] Health Concerns Section Related Observation LastModified by Organization Detai ls LastModified Time None Recorded Concern Status LastModified by Organization Details LastModified Time None Recorded Payers Encounter Date Sequence Insurance Name Policy Number Policy Bonner Covered Member ID Bonner Member ID Guarantor Name 12/21/2024 1 [facility]: MEDIC[place] PPO BLUE (MEDICARE REPLACEMENT PPO) [id number] Candis Dobbins [id number] Candis Dobbins Notes Date Note Type Note Provider Name and Address Organization Details Recorded Time 12/21/2024 text/html Patient is 79year old female who reports history of heel pain beginning 6months ago gradual insidious onset. Pain progressed over time and is worse with prolonged walking, standing, and stairs. Has _ trialed orthotics or supportive footwear. Arrives today ambulating with _, demonstrating antalgic gait mechanics. Current vocational status is... Functional limitations include restricted ankle ROM, difficulty ambulating community distances, and navigating stairs. Patient goal is to... Jac Phelps, PT [address] [facility] [address], [place], [address], [facility] 12/26/2024 09:07:44 12/26/2024 text/html Pt reports cont achilles tendon pain R LE. Marlen Altamirano, AUTO SERVICER [address] [facility] [address], [place], [address], [facility] 12/26/2024 14:43:06 OBGyn Episode No OBEpisode recorded.
--- OUTSIDE RECORDS SUMMARY | 2025-03-09 08:15 | XMS_ITS | Continuity of Care Document ---
Author Organization [facility], [facility] Address [address] [place] [address] Assessment Encounter Date Assessment Date Assessment LastModified by Organization Details LastModified Time 01/25/2025 01/25/2025 Assessment: See Medicare Recert Plan: Progress as Pt leonides. 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 Reason for Referral None Reported. Procedures Surgical History Date Name Laterality Status Provider Name and Address Organization Details Recorded Time 5 42271 Therapeutic Exercise (1:1) completed Marlen Formantonier, BAND SINGER [address], [place], [address], [facility] 02/07/2025 14:08:28 5 47062: Manual therapy completed Marlen Formreinaldoster, BAND SINGER [address], [place], [address], [facility] 02/07/2025 14:08:28 5 36657 Therapeutic Exercise (1:1) completed Marlen Formreinaldoster, BAND SINGER [address], [place], [address], [facility] 02/05/2025 13:07:01 5 57847: Manual therapy completed Marlen Formemykelster, BAND SINGER [address], [place], [address], [facility] 02/05/2025 13:07:01 5 69530 Therapeutic Exercise (1:1) completed Marlen Formejester, BAND SINGER [address], [place], [address], [facility] 02/01/2025 18:43:22 5 82539: Manual therapy completed Marlen Formejester, BAND SINGER [address], [place], [address], [facility] 02/01/2025 18:43:22 5 13338 Therapeutic Exercise (1:1) completed Marlen Formantonier, BAND SINGER [address], [place], [address], [facility] 01/30/2025 12:38:25 5 01909: Manual therapy completed Marlen Formantonier, BAND SINGER [address], [place], [address], [facility] 01/30/2025 12:38:25 5 66750 Therapeutic Exercise (1:1) completed Jac Phelps, PT [address], [place], [address], [facility] 01/25/2025 11:18:34 5 41965: Manual therapy completed Jac Phelps, PT [address], [place], [address], [facility] 01/25/2025 11:18:34 5 44353 Therapeutic Exercise (1:1) completed Marlen Altamirano, BAND SINGER [address], [place], [address], [facility] 01/23/2025 12:15:01 5 53948: Manual therapy completed Marlen Formzachary, BAND SINGER [address], [place], [address], [facility] 01/23/2025 12:15:01 5 16300 Therapeutic Exercise (1:1) completed Marlen Formzachary, BAND SINGER [address], [place], [address], [facility] 01/19/2025 13:18:56 5 76288: Manual therapy completed Marlen Formantonier, BAND SINGER [address], [place], [address], [facility] 01/19/2025 13:18:56 67793 Therapeutic Exercise (1:1) completed Marlen Formejester, BAND SINGER [address], [place], [address], [facility] 01/16/2025 14:29:55 12716: Manual therapy completed Marlen Formejester, BAND SINGER [address], [place], [address], [facility] 01/16/2025 14:29:55 13423 Therapeutic Exercise (1:1) completed Marlen Formemykelster, BAND SINGER [address], [place], [address], [facility] 01/10/2025 12:31:36 41859: Manual therapy completed Marlen Formemykelster, BAND SINGER [address], [place], [address], [facility] 01/10/2025 12:31:36 37593 Therapeutic Exercise (1:1) completed Marlen Formemykelster, BAND SINGER [address], [place], [address], [facility] [place] [facility] 01/08/2025 12:21:05 46705: Manual therapy completed Marlen Formemykelster, BAND SINGER [address], [place], [address], [facility] 01/08/2025 12:21:05 94434 Therapeutic Exercise (1:1) completed Marlen Formejester, BAND SINGER [address], [place], [address], [facility] 01/05/2025 14:39:26 57647: Manual therapy completed Marlen Formejester, BAND SINGER [address], [place], [address], [facility] 01/05/2025 14:39:26 87049 Therapeutic Exercise (1:1) completed Marlen Hayleyzachary, BAND SINGER [address], [place], [address], [facility] 01/03/2025 12:36:12 74728: Manual therapy completed Marlenramez Altamirano, BAND SINGER [address], [place], [address], [facility] 01/03/2025 12:36:12 80130 Therapeutic Exercise (1:1) completed Marlenramez Altamirano, BAND SINGER [address], [place], [address], [facility] 12/26/2024 14:39:52 63095: Manual therapy completed Marlen Hayleyzachary, BAND SINGER [address], [place], [address], [facility] 12/26/2024 14:40:06 70718 Therapeutic Exercise (1:1) completed Jac Phelps, PT [address] [facility], [place], [address], [facility] 12/26/2024 09:01:51 59420: Low complexity PT Eval completed Jac Phelps, PT [address], [place], [address], [facility] 12/26/2024 09:01:54 [...] ICD10 Code Diagnosis IMO Codes Diagnosis Note [id number] Marlen Formejeste r, [facility] [address] [place] [address] 12/26/2024 11:25:26 12/26/2024 12:42:14 Right Achilles tendinitis [id number] [address] [place] [address].61 [id number] Marlen Formejeste r, B[facility] S[facility]ER [facility] [address] [place] [address] 01/03/2025 12:27:42 01/03/2025 13:44:41 Right Achilles tendinitis [id number] [address] [place] [address] [id number] Marlen Formejeste r, B[facility] S[facility]ER [facility] [address] [place] [address] 01/05/2025 14:20:08 01/08/2025 13:53:55 Right Achilles tendinitis [id number] 6[address]56 [facility].61 [id number] Marlen Formejeste r, B[facility] S[facility]ER [facility] [address] [place] [address] 01/08/2025 12:13:30 01/08/2025 13:07:40 Right Achilles tendinitis [id number] [address]59 [facility].61 [id number] Marlen Formejeste r, B[facility] S[facility]ER [facility] [address] [place] [address] 01/10/2025 12:18:29 01/10/2025 14:27:08 Right Achilles tendinitis [id number] 06453 M76.61 [id number] Marlenramez Whalen r, B[facility] S[facility]ER [facility] [address] [place] [address] 01/16/2025 12:01:25 01/16/2025 13:22:14 Right Achilles tendinitis [id number] 65846 M76.61 [id number] Marlen Marlee r, B[facility]ER [facility] [address] [place] [address] 01/19/2025 13:05:55 01/19/2025 14:03:59 Right Achilles tendinitis [id number] 17301 M76.61 [id number] Jac Phelps, PT [facility] [address] [place] [address] 01/23/2025 11:52:06 01/23/2025 11:59:01 Right Achilles tendinitis [id number] 97087 M76.61 [id number] Jac Phelps, PT [facility] [address] [place] [address] 01/25/2025 11:57:58 01/25/2025 12:55:15 Right Achilles tendinitis [id number] 37968 M76.61 [id number] Health Concerns Section Related Observation LastModified by Organization Detai ls LastModified Time None Recorded Concern Status LastModified by Organization Details LastModified Time None Recorded Payers Encounter Date Sequence Insurance Name Policy Number Policy Bonner Covered Member ID Bonner Member ID Guarantor Name 01/25/2025 1 [facility]: MEDICARE PPO BLUE (MEDICARE REPLACEMENT PPO) [id number] Candis Dobbins [id number] Candis Dobbins Notes Date Note Type Note Provider Name and Address Organization Details Recorded Time 01/25/2025 text/html Pt reports R Achilles is better but still sore with prolonged standing/amb, also TTP. Jac Phelps, PT [address], [place], [address], [facility] 01/28/2025 19:10:32 OBGyn Episode No OBEpisode recorded.
--- OUTSIDE RECORDS SUMMARY | 2025-03-09 08:15 | XMS_ITS | Data Portability ---
Author Organization [place] - [facility], [facility] [place] [facility] Address [address] [place] [address] Assessment Encounter Date Assessment Date Assessment LastModified by Organization Details LastModified Time 01/25/2025 01/25/2025 Assessment: See Medicare Recert Plan: Progress as Pt leonides. [email or web address] Not available 01/28/2025 18:30:07 01/30/2025 01/30/2025 Assessment: Pt performed all therex to fatigue. Plan: Progress as Pt leonides. Not available 01/30/2025 13:12:14 02/01/2025 02/01/2025 Assessment: Increased tenderness upon palpation R achilles tendon and lat ankle today. Plan: Progress as Pt leonides. Not available 02/01/2025 18:45:49 02/05/2025 02/05/2025 Assessment: Decreased tenderness upon palpation. R achilles tendon noted. Plan: Progress as Pt leonides. Not available 02/05/2025 13:10:05 02/07/2025 02/07/2025 Assessment: Cont tenderness upon palpation R achilles tendon while massage. Plan:DC PT secondary to lack of progress at this point. Not available 02/07/2025 14:14:27 Plan of Treatment [...] By Organization Details Last Modified Time 01/25/2025 [id number] 3 weeks of Right Ankle/Foot Strength motor [...] pattern Not available Not available Not available jail goal of Walking up or down stairs [...] surfaces Not available Not available Not available [employer] superintendent goal of Gait and Stance: gait WNL Not available Not available Not available 3 weeks of Pain <4/10 Not available Not available Not available [employer] superintendent goal of Pain 0/10 Not available Not available Not available jail goal of Walking on uneven surfaces (level of support required when walking on uneven surfaces) No difficulty: able to walk without support Not available Not available Not available 01/30/2025 [id number] 3 weeks of Right Ankle/Foot Strength motor [...] pattern Not available Not available Not available jail goal of Walking up or down stairs [...] surfaces Not available Not available Not available jail goal of Gait and Stance: gait WNL Not available Not available Not available 3 weeks of Pain <4/10 Not available Not available Not available [employer] superintendent goal of Pain 0/10 Not available Not available Not available [employer] superintendent goal of Walking on uneven surfaces (level of support required when walking on uneven surfaces) No difficulty: able to walk without support Not available Not available Not available 02/01/2025 [id number] 3 weeks of Right Ankle/Foot Strength motor [...] pattern Not available Not available Not available [employer] superintendent goal of Walking up or [...] surfaces Not available Not available Not available [employer] superintendent goal of Gait and Stance: gait WNL Not available Not available Not available 3 weeks of Pain <4/10 Not available Not available Not available [employer] superintendent goal of Pain 0/10 Not available Not available Not available jail goal of Walking on uneven surfaces (level of support required when walking on uneven surfaces) No difficulty: able to walk without support Not available Not available Not available 02/05/2025 [id number] 3 weeks of Right Ankle/Foot Strength motor [...] pattern Not available Not available Not available [employer] superintendent goal of Walking up or [...] surfaces Not available Not available Not available [employer] superintendent goal of Gait and Stance: gait WNL Not available Not available Not available 3 weeks of Pain <4/10 Not available Not available Not available [employer] superintendent goal of Pain 0/10 Not available Not available Not available [employer] superintendent goal of Walking on uneven surfaces (level of support required when walking on uneven surfaces) No difficulty: able to walk without support Not available Not available Not available 02/07/2025 [id number] 3 weeks of Right Ankle/Foot Strength motor [...] pattern Not available Not available Not available jail goal of Walking up or down stairs [...] surfaces Not available Not available Not available jail goal of Gait and Stance: gait WNL Not available Not available Not available 3 weeks of Pain <4/10 Not available Not available Not available [employer] superintendent goal of Pain 0/10 Not available Not available Not available [employer] superintendent goal of Walking on uneven surfaces (level of support required when walking on uneven surfaces) No difficulty: able to walk without support Not available Not available Not available Patient InstructionsNo instructions recorded. Reason for Referral None Reported. Procedures Surgical History Date Name Laterality Status Provider Name and Address Organization Details Recorded Time 5 [id number] Therapeutic Exercise (1:1) completed Marlen Altamirano, FAMILY MEDICINE PHYSICIAN [address] [facility], [place], [address], [facility] 02/07/2025 14:08:28 5 91861: Manual therapy completed Marlen Altamirano, FAMILY MEDICINE PHYSICIAN [address] [facility], [place], [address], [facility] 02/07/2025 14:08:28 5 41305 Therapeutic Exercise (1:1) completed Marlen Altamirano, FAMILY MEDICINE PHYSICIAN [address] [facility], [place], [address], [facility] 02/05/2025 13:07:01 5 81616: Manual therapy completed Marlen Altamirano, FAMILY MEDICINE PHYSICIAN [address], [place], [address], [facility] 02/05/2025 13:07:01 5 20057 Therapeutic Exercise (1:1) completed Marlen Portilloster, FAMILY MEDICINE PHYSICIAN [address], [place], [address], [facility] 02/01/2025 18:43:22 5 85556: Manual therapy completed Marlen Altamirano, FAMILY MEDICINE PHYSICIAN [address], [place], [address], [facility] 02/01/2025 18:43:22 5 18785 Therapeutic Exercise (1:1) completed Marlen Altamirano, FAMILY MEDICINE PHYSICIAN [address], [place], [address], [facility] 01/30/2025 12:38:25 5 69220: Manual therapy completed Marlen Altamirano, FAMILY MEDICINE PHYSICIAN [address], [place], [address], [facility] 01/30/2025 12:38:25 5 83578 Therapeutic Exercise (1:1) completed Jac Phelps, PT [address], [place], [address], [facility] 01/25/2025 11:18:34 5 17479: Manual therapy completed Jac Phelps, PT [address], [place], [address], [facility] 01/25/2025 11:18:34 5 64707 Therapeutic Exercise (1:1) completed Marlen Altamirano, FAMILY MEDICINE PHYSICIAN [address], [place], [address], [facility] 01/23/2025 12:15:01 5 89368: Manual therapy completed Marlen Altamirano, FAMILY MEDICINE PHYSICIAN [address], [place], [address], [facility] 01/23/2025 12:15:01 5 38802 Therapeutic Exercise (1:1) completed Marlen Altamirano, FAMILY MEDICINE PHYSICIAN [address], [place], [address], [facility] 01/19/2025 13:18:56 00632: Manual therapy completed Marlen Formzachary, FAMILY MEDICINE PHYSICIAN [address], [place], [address], [facility] 01/19/2025 13:18:56 51178 Therapeutic Exercise (1:1) completed Marlen Formzachary, FAMILY MEDICINE PHYSICIAN [address], [place], [address], [facility] 01/16/2025 14:29:55 12196: Manual therapy completed Marlen Altamirano, FAMILY MEDICINE PHYSICIAN [address], [place], [address], [facility] 01/16/2025 14:29:55 30036 Therapeutic Exercise (1:1) completed Marlen Altamirano, FAMILY MEDICINE PHYSICIAN [address], [place], [address], [facility] 01/10/2025 12:31:36 98493: Manual therapy completed Marlen Altamirano, FAMILY MEDICINE PHYSICIAN [address], [place], [address], [facility] 01/10/2025 12:31:36 71471 Therapeutic Exercise (1:1) completed Marlen Altamirano, FAMILY MEDICINE PHYSICIAN [address], [place], [address], [facility] 01/08/2025 12:21:05 74829: Manual therapy completed Marlen Altamirano, FAMILY MEDICINE PHYSICIAN [address], [place], [address], [facility] 01/08/2025 12:21:05 47570 Therapeutic Exercise (1:1) completed Marlen Altamirano, FAMILY MEDICINE PHYSICIAN [address], [place], [address], [facility] 01/05/2025 14:39:26 46794: Manual therapy completed Marlen Altamirano, FAMILY MEDICINE PHYSICIAN [address] [facility], [place], [address], [facility] 01/05/2025 14:39:26 70984 Therapeutic Exercise (1:1) completed Marlen Formzachary, FAMILY MEDICINE PHYSICIAN [address], [place], [address], [facility] 01/03/2025 12:36:12 92047: Manual therapy completed Marlen Altamirano, FAMILY MEDICINE PHYSICIAN [address] [facility], [place], [address], [facility] 01/03/2025 12:36:12 08231 Therapeutic Exercise (1:1) completed Marlen Altamirano, FAMILY MEDICINE PHYSICIAN [address], [place], [address], [facility] 12/26/2024 14:39:52 23430: Manual therapy completed Marlen Altamirano, FAMILY MEDICINE PHYSICIAN [address] [facility], [place], [address], [facility] 12/26/2024 14:40:06 63238 Therapeutic Exercise (1:1) completed Jac Phelps, PT [address] [facility], [place], [address], [facility] 12/26/2024 09:01:51 61241: Low complexity PT Eval completed Jac Phelps, PT [address] [facility], [place], [address], [facility] 12/26/2024 09:01:54 Imaging Results None recorded. Procedure [...] ICD10 Code Diagnosis IMO Codes Diagnosis Note [id number] MD Z[facility] [address] [place] [address] [place] [address] 11/30/2024 14:24:24 12/05/2024 08:43:15 Right Achilles tendinitis [id number] 66321 M76.61 [id number] Jac Phelps, PT [facility] - [facility] [place] [facility] [address] [place] [address] 12/21/2024 11:24:57 12/21/2024 12:43:13 Right Achilles tendinitis [id number] 66718 M76.61 [id number] Marlen Sotoe r, FAMILY MEDICINE PHYSICIAN [facility] - [facility] [address] [place] [address] 12/26/2024 11:25:26 12/26/2024 12:42:14 Right Achilles tendinitis [id number] 71383 M76.61 [id number] Marlen Formantonie r, FAMILY MEDICINE PHYSICIAN [facility] - [facility] [address] [place] [address] 01/03/2025 12:27:42 01/03/2025 13:44:41 Right Achilles tendinitis [id number] 02865 M76.61 [id number] Marlen Formejeste r, FAMILY MEDICINE PHYSICIAN [facility] - [facility] [address] [place] [address] 01/05/2025 14:20:08 01/08/2025 13:53:55 Right Achilles tendinitis [id number] 53970 M76.61 [id number] Marlen Formejeste r, FAMILY MEDICINE PHYSICIAN [facility] - [facility] [address] [place] [address] 01/08/2025 12:13:30 01/08/2025 13:07:40 Right Achilles tendinitis [id number] 92305 M76.61 [id number] Marlen Formejeste r, FAMILY MEDICINE PHYSICIAN [facility] - [facility] [address] [place] [address] 01/10/2025 12:18:29 01/10/2025 14:27:08 Right Achilles tendinitis [id number] 72205 M76.61 [id number] Marlen Formejeste r, FAMILY MEDICINE PHYSICIAN [facility] - [facility] [address] [place] [address] 01/16/2025 12:01:25 01/16/2025 13:22:14 Right Achilles tendinitis [id number] 51911 M76.61 [id number] Marlen Formejeste r, FAMILY MEDICINE PHYSICIAN [facility] - [facility] [address] [place] [address] 01/19/2025 13:05:55 01/19/2025 14:03:59 Right Achilles tendinitis [id number] 75512 M76.61 [id number] Jac Phelps, PT [facility] - [facility] [address] [place] [address] 01/23/2025 11:52:06 01/23/2025 11:59:01 Right Achilles tendinitis [id number] 19265 M76.61 [id number] Jac Lenin, PT [facility] - [facility] [address] [place] [address] 01/25/2025 11:57:58 01/25/2025 12:55:15 Right Achilles tendinitis [id number] 30761 M76.61 [id number] Marlen Formejeste r, FAMILY MEDICINE PHYSICIAN [facility] - [facility] [place] [facility] [address] [place] [address] 01/30/2025 11:58:43 01/30/2025 12:46:17 Right Achilles tendinitis [id number] 81714 M76.61 [id number] Marlen Linsdeyste r, FAMILY MEDICINE PHYSICIAN [facility] - [facility] [address] [place] [address] 02/01/2025 16:36:06 02/01/2025 17:10:05 Right Achilles tendinitis [id number] 38878 M76.61 [id number] Marlen Lindseyste r, FAMILY MEDICINE PHYSICIAN [facility] - [facility] [address] [place] [address] 02/05/2025 11:55:57 02/05/2025 12:48:42 Right Achilles tendinitis [id number] 97594 M76.61 [id number] Marlen Marlee r, FAMILY MEDICINE PHYSICIAN [facility] - [facility] [address] [place] [address] 02/07/2025 11:59:08 02/07/2025 12:31:47 Right Achilles tendinitis [id number] 94421 M76.61 [id number] Health Concerns Section Related Observation LastModified by Organization Detai ls LastModified Time None Recorded Concern Status LastModified by Organization Details LastModified Time None Recorded Advance Directives Directive None Recorded Payers Insurance Date Sequence Insurance Name Policy Number Policy Bonner Covered Member ID Bonner Member ID Guarantor Name 02/12/2025 1 [facility]: MEDICARE PPO BLUE (MEDICARE REPLACEMENT PPO) [id number] Candis Dobbins [id number] Candis Dobbins Notes Date Note Type Note Provider Name and Address Organization Details Recorded Time 01/25/2025 text/html Pt reports R Achilles is better but still sore with prolonged standing/amb, also TTP. Jac Phelps, PT [address], [place], [address], [facility] - [facility] 01/28/2025 19:10:32 01/30/2025 text/html Pt reports cont tightness R calf ms when trying to lean forward when standing. Marlen Formejester, FAMILY MEDICINE PHYSICIAN [address], [place], [address], [facility] 01/30/2025 13:13:17 02/01/2025 text/html Pt reports pain achilles tendon as well as lat ankle today. Marlen Altamirano, FAMILY MEDICINE PHYSICIAN [address], [place], [address], [facility] 02/01/2025 18:46:09 02/05/2025 text/html Pt reports R achilles tendon is less tender today. Marlen Altamirano, FAMILY MEDICINE PHYSICIAN [address], [place], [address], [facility] 02/05/2025 13:10:27 02/07/2025 text/html Pt reports cont achilles tendon pain, reports she does not think she is getting better at this point. Marlen Altamirano, FAMILY MEDICINE PHYSICIAN [address], [place], [address], [facility] 02/07/2025 14:14:48 OBGyn Episode No OBEpisode recorded.
--- OUTSIDE RECORDS SUMMARY | 2025-03-09 08:15 | XMS_ITS | Continuity of Care Document ---
Author Organization [facility], [facility] PT Address [address] [place] [address] Assessment Encounter Date Assessment Date Assessment LastModified by Organization Details LastModified Time 02/01/2025 02/01/2025 Assessment: Increased tenderness upon palpation R achilles tendon and lat ankle today. Plan: Progress as Pt leonides. 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 Reason for Referral None Reported. Procedures Surgical History Date Name Laterality Status Provider Name and Address Organization Details Recorded Time 5 73643 Therapeutic Exercise (1:1) completed Marlen Altamirano, GMAT INSTRUCTOR [address], [place], [address], [facility] 02/07/2025 14:08:28 5 99420: Manual therapy completed Marlen Altamirano, GMAT INSTRUCTOR [address], [place], [address], [facility] 02/07/2025 14:08:28 5 28342 Therapeutic Exercise (1:1) completed Marlen Altamirano, GMAT INSTRUCTOR [address], [place], [address], [facility] 02/05/2025 13:07:01 5 06471: Manual therapy completed Marlen Formreinaldoster, GMAT INSTRUCTOR [address], [place], [address], [facility] 02/05/2025 13:07:01 5 28632 Therapeutic Exercise (1:1) completed Marlen Formreinaldoster, GMAT INSTRUCTOR [address], [place], [address], [facility] 02/01/2025 18:43:22 5 86845: Manual therapy completed Marlen Formejester, GMAT INSTRUCTOR [address], [place], [address], [facility] 02/01/2025 18:43:22 5 44052 Therapeutic Exercise (1:1) completed Marlen Formejester, GMAT INSTRUCTOR [address], [place], [address], [facility] 01/30/2025 12:38:25 5 55826: Manual therapy completed Marlen Formejester, GMAT INSTRUCTOR [address], [place], [address], [facility] 01/30/2025 12:38:25 5 53910 Therapeutic Exercise (1:1) completed Jac Lenin, PT [address], [place], [address], [facility] 01/25/2025 11:18:34 5 49976: Manual therapy completed Jac Phelps, PT [address], [place], [address], [facility] 01/25/2025 11:18:34 5 70575 Therapeutic Exercise (1:1) completed Marlen Formemykelster, GMAT INSTRUCTOR [address], [place], [address], [facility] 01/23/2025 12:15:01 5 95127: Manual therapy completed Marlen Formejester, GMAT INSTRUCTOR [address], [place], [address], [facility] 01/23/2025 12:15:01 5 61157 Therapeutic Exercise (1:1) completed Marlen Formejester, GMAT INSTRUCTOR [address], [place], [address], [facility] 01/19/2025 13:18:56 5 29829: Manual therapy completed Marlen Formejester, GMAT INSTRUCTOR [address], [place], [address], [facility] 01/19/2025 13:18:56 72780 Therapeutic Exercise (1:1) completed Marlen Formejester, GMAT INSTRUCTOR [address], [place], [address], [facility] 01/16/2025 14:29:55 54991: Manual therapy completed Marlen Formejester, GMAT INSTRUCTOR [address], [place], [address], [facility] 01/16/2025 14:29:55 16939 Therapeutic Exercise (1:1) completed Marlen Formejester, GMAT INSTRUCTOR [address], [place], [address], [facility] 01/10/2025 12:31:36 49426: Manual therapy completed Marlen Formejester, GMAT INSTRUCTOR [address], [place], [address], [facility] 01/10/2025 12:31:36 42966 Therapeutic Exercise (1:1) completed Marlen Formemykelster, GMAT INSTRUCTOR [address], [place], [address], [facility] 01/08/2025 12:21:05 23897: Manual therapy completed Marlen Formejester, GMAT INSTRUCTOR [address], [place], [address], [facility] 01/08/2025 12:21:05 74931 Therapeutic Exercise (1:1) completed Marlen Formejester, GMAT INSTRUCTOR [address], [place], [address], [facility] 01/05/2025 14:39:26 85125: Manual therapy completed Marlen Formejester, GMAT INSTRUCTOR [address], [place], [address], [facility] 01/05/2025 14:39:26 14800 Therapeutic Exercise (1:1) completed Marlen Hardyzaidaopaler, GMAT INSTRUCTOR [address], [place], [address], [facility] 01/03/2025 12:36:12 42209: Manual therapy completed Marlen Hardyzachary, GMAT INSTRUCTOR [address], [place], [address], [facility] 01/03/2025 12:36:12 27474 Therapeutic Exercise (1:1) completed Marlen Hardyzachary, GMAT INSTRUCTOR [address], [place], [address], [facility] 12/26/2024 14:39:52 27563: Manual therapy completed Marlen Hardyzaidamykelemily, GMAT INSTRUCTOR [address], [place], [address], [facility] [employer] [facility] 12/26/2024 14:40:06 75850 Therapeutic Exercise (1:1) completed Jac Phelps, PT [address], [place], [address], [facility] [employer] [facility] 12/26/2024 09:01:51 79528: Low complexity PT Eval completed Jac Phelps, PT [address], [place], [address], [facility] [employer] [facility] 12/26/2024 09:01:54 Imaging Results [...] ICD10 Code Diagnosis IMO Codes Diagnosis Note [id number] Marlen Formejeste r, GMAT INSTRUCTOR [facility] [address] [place] [address] 01/03/2025 12:27:42 01/03/2025 13:44:41 Right Achilles tendinitis [id number] 27084 76.61 [id number] Marlen Formejeste r, GMAT INSTRUCTOR [facility] [address] [place] [address] 01/05/2025 14:20:08 01/08/2025 13:53:55 Right Achilles tendinitis [id number] 16428 M76.61 [id number] Marlen Formejeste r, GMAT INSTRUCTOR [facility] [address] [place] [address] 01/08/2025 12:13:30 01/08/2025 13:07:40 Right Achilles tendinitis [id number] 41906 M76.61 [id number] Marlen Formejeste r, GMAT INSTRUCTOR [facility] [address] [place] [address] 01/10/2025 12:18:29 01/10/2025 14:27:08 Right Achilles tendinitis [id number] 43915 M76.61 [id number] Marlen Formejeste r, GMAT INSTRUCTOR [facility] [address] [place] [address] 01/16/2025 12:01:25 01/16/2025 13:22:14 Right Achilles tendinitis [id number] 21539 M76.61 [id number] Marlen Brittanye r, GMAT INSTRUCTOR [facility] [address] [place] [address] 01/19/2025 13:05:55 01/19/2025 14:03:59 Right Achilles tendinitis [id number] 18891 M76.61 [id number] Jac Whartono, PT [facility] [address] [place] [address] 01/23/2025 11:52:06 01/23/2025 11:59:01 Right Achilles tendinitis [id number] 28652 M76.61 [id number] Jac Evangelistaonso, PT [facility] [address] [place] [address] 01/25/2025 11:57:58 01/25/2025 12:55:15 Right Achilles tendinitis [id number] 01988 M76.61 [id number] Marlen Brittanye r, GMAT INSTRUCTOR [facility] [address] [place] [address] 01/30/2025 11:58:43 01/30/2025 12:46:17 Right Achilles tendinitis [id number] 11811 M76.61 [id number] Marlen Lindseyste r, GMAT INSTRUCTOR [facility] [address] [place] [address] 02/01/2025 16:36:06 02/01/2025 17:10:05 Right Achilles tendinitis [id number] 19307 M76.61 [id number] Health Concerns Section Related Observation LastModified by Organization Detai ls LastModified Time None Recorded Concern Status LastModified by Organization Details LastModified Time None Recorded Payers Encounter Date Sequence Insurance Name Policy Number Policy Bonner Covered Member ID Bonner Member ID Guarantor Name 02/01/2025 1 [facility]: MEDIC[place] PPO BLUE (MEDICARE REPLACEMENT PPO) [id number] Candis Dobbins [id number] Candis Dobbins Notes Date Note Type Note Provider Name and Address Organization Details Recorded Time 02/01/2025 text/html Pt reports pain achilles tendon as well as lat ankle today. Marlen Altamirano, GMAT INSTRUCTOR [address], [place], [address], [facility] 02/01/2025 18:46:09 OBGyn Episode No OBEpisode recorded.
--- OUTSIDE RECORDS SUMMARY | 2025-03-09 08:15 | XMS_ITS | Continuity of Care Document ---
Author Organization [facility], [facility] PT Address [address] [place] [address] Assessment Encounter Date Assessment Date Assessment LastModified by Organization Details LastModified Time 01/03/2025 01/03/2025 Assessment: Pt performed all therex to fatigue. Plan: Progress as Pt leonides. [email or web address] Not available 01/03/2025 14:00:16 Plan of Treatment Reminders Order Date Submit [...] Modified By Organization Details Last Modified Time 01/03/2025 [id number] 3 weeks of Right Ankle/Foot Strength motor [...] pattern Not available Not available Not available alf goal of Walking up or down stairs [...] surfaces Not available Not available Not available alf goal of Gait and Stance: gait WNL Not available Not available Not available 3 weeks of Pain <4/10 Not available Not available Not available terminal operations supervisor goal of Pain 0/10 Not available Not available Not available alf goal of Walking on uneven surfaces (level of support required when walking on uneven surfaces) No difficulty: able to walk without support Not available Not available Not available Patient InstructionsNo instructions recorded. Reason for Referral None Reported. Procedures Surgical History Date Name Laterality Status Provider Name and Address Organization Details Recorded Time 5 97572 Therapeutic Exercise (1:1) completed Marlen Altamirano, MANAGER CASINO [address], [place], [address], [facility] 02/07/2025 14:08:28 5 63235: Manual therapy completed Marlen Altamirano, MANAGER CASINO [address], [place], [address], [facility] 02/07/2025 14:08:28 5 73527 Therapeutic Exercise (1:1) completed Marlen Altamirano, MANAGER CASINO [address], [place], [address], [facility] 02/05/2025 13:07:01 5 66669: Manual therapy completed Marlen Formreinaldoster, MANAGER CASINO [address], [place], [address], [facility] 02/05/2025 13:07:01 5 42773 Therapeutic Exercise (1:1) completed Marlen Formreinaldoster, MANAGER CASINO [address], [place], [address], [facility] 02/01/2025 18:43:22 5 95965: Manual therapy completed Marlen Formejester, MANAGER CASINO [address], [place], [address], [facility] 02/01/2025 18:43:22 5 23745 Therapeutic Exercise (1:1) completed Marlen Formejester, MANAGER CASINO [address], [place], [address], [facility] 01/30/2025 12:38:25 5 11106: Manual therapy completed Marlen Formejester, MANAGER CASINO [address], [place], [address], [facility] 01/30/2025 12:38:25 5 40142 Therapeutic Exercise (1:1) completed Jac Phelps, PT [address], [place], [address], [facility] 01/25/2025 11:18:34 5 20941: Manual therapy completed Jac Phelps, PT [address], [place], [address], [facility] 01/25/2025 11:18:34 5 72052 Therapeutic Exercise (1:1) completed Marlen Formemykelster, MANAGER CASINO [address], [place], [address], [facility] 01/23/2025 12:15:01 5 46190: Manual therapy completed Marlen Formejester, MANAGER CASINO [address], [place], [address], [facility] 01/23/2025 12:15:01 5 61269 Therapeutic Exercise (1:1) completed Marlen Formejester, MANAGER CASINO [address], [place], [address], [facility] 01/19/2025 13:18:56 5 89947: Manual therapy completed Marlen Formejester, MANAGER CASINO [address], [place], [address], [facility] 01/19/2025 13:18:56 36922 Therapeutic Exercise (1:1) completed Marlen Formejester, MANAGER CASINO [address], [place], [address], [facility] 01/16/2025 14:29:55 91486: Manual therapy completed Marlen Formejester, MANAGER CASINO [address], [place], [address], [facility] 01/16/2025 14:29:55 40918 Therapeutic Exercise (1:1) completed Marlen Formejester, MANAGER CASINO [address], [place], [address], [facility] 01/10/2025 12:31:36 30195: Manual therapy completed Marlen Formemykelster, MANAGER CASINO [address], [place], [address], [facility] 01/10/2025 12:31:36 52050 Therapeutic Exercise (1:1) completed Marlen Formemykelster, MANAGER CASINO [address], [place], [address], [facility] 01/08/2025 12:21:05 89816: Manual therapy completed Marlne Formemykelster, MANAGER CASINO [address], [place], [address], [facility] 01/08/2025 12:21:05 90856 Therapeutic Exercise (1:1) completed Marlen Formejester, MANAGER CASINO [address], [place], [address], [facility] 01/05/2025 14:39:26 92879: Manual therapy completed Marlen Formejester, MANAGER CASINO [address], [place], [address], [facility] 01/05/2025 14:39:26 51868 Therapeutic Exercise (1:1) completed Marlen Hardyzachary, MANAGER CASINO [address], [place], [address], [facility] 01/03/2025 12:36:12 85943: Manual therapy completed Marlen Hayleyzachary, MANAGER CASINO [address], [place], [address], [facility] 01/03/2025 12:36:12 93297 Therapeutic Exercise (1:1) completed Marlen Hayleyzachary, MANAGER CASINO [address], [place], [address], [facility] 12/26/2024 14:39:52 83877: Manual therapy completed Marlen Hayleyzachary, MANAGER CASINO [address], [place], [address], [facility] 12/26/2024 14:40:06 12541 Therapeutic Exercise (1:1) completed Jac Phelps, PT [address], [place], [address], [facility] 12/26/2024 09:01:51 89693: Low complexity PT Eval completed Jac Phelps, PT [address], [place], [address], [facility] 12/26/2024 09:01:54 Imaging Results [...] ICD10 Code Diagnosis IMO Codes Diagnosis Note [id number] Jac Phelps, PT [facility] [address] [place] [address] 12/21/2024 11:24:57 12/21/2024 12:43:13 Right Achilles tendinitis [id number] 38443 76.61 [id number] Marlen Sotoe r, MANAGER CASINO [facility] [address] [place] [address] 12/26/2024 11:25:26 12/26/2024 12:42:14 Right Achilles tendinitis [id number] 41059 M76.61 [id number] Marlen Formejeste r, MANAGER CASINO [facility] [address] [place] [address] 01/03/2025 12:27:42 01/03/2025 13:44:41 Right Achilles tendinitis [id number] 05916 M76.61 [id number] Health Concerns Section Related Observation LastModified by Organization Detai ls LastModified Time None Recorded Concern Status LastModified by Organization Details LastModified Time None Recorded Payers Encounter Date Sequence Insurance Name Policy Number Policy Bonner Covered Member ID Bonner Member ID Guarantor Name 01/03/2025 1 [employer] (MEDICARE REPLACEMENT PPO) [id number] Candis Dobbins [id number] Candis Dobbins Notes Date Note Type Note Provider Name and Address Organization Details Recorded Time 01/03/2025 text/html Pt reports cont pain when trying to bend her leg. Marlen Altamirano, MANAGER CASINO [address] [facility] [address], [place], [address], [facility] 01/03/2025 14:00:39 OBGyn Episode No OBEpisode recorded.
--- OUTSIDE RECORDS SUMMARY | 2025-03-09 08:15 | XMS_ITS | Continuity of Care Document ---
Author Organization [facility], [facility] PT Address [address] [place] [address] Assessment Encounter Date Assessment Date Assessment LastModified by Organization Details LastModified Time 01/05/2025 01/05/2025 Assessment: Increased tenderness upon palpation L achilles tendon noted while manual techniques. Plan: Progress as Pt leonides. [email or web address] Not available 01/05/2025 16:07:22 Plan of Treatment Reminders Order Date Submit [...] Modified By Organization Details Last Modified Time 01/05/2025 [id number] 3 weeks of Right Ankle/Foot Strength motor [...] pattern Not available Not available Not available [facility] goal of Walking up or down stairs [...] available Not available Not available terminal operations manager goal of Gait and Stance: gait WNL Not available Not available Not available 3 weeks of Pain <4/10 Not available Not available Not available [facility] goal of Pain 0/10 Not available Not available Not available terminal operations manager goal of Walking on uneven surfaces (level of support required when walking on uneven surfaces) No difficulty: able to walk without support Not available Not available Not available Patient InstructionsNo instructions recorded. Reason for Referral None Reported. Procedures Surgical History Date Name Laterality Status Provider Name and Address Organization Details Recorded Time 5 15996 Therapeutic Exercise (1:1) completed Marlen Altamirano, SUPERVISOR SHOP [address], [place], [address], [facility] 02/07/2025 14:08:28 5 63932: Manual therapy completed Marlen Altamirano, SUPERVISOR SHOP [address], [place], [address], [facility] 02/07/2025 14:08:28 5 68484 Therapeutic Exercise (1:1) completed Marlen Altamirano, SUPERVISOR SHOP [address], [place], [address], [facility] 02/05/2025 13:07:01 5 33875: Manual therapy completed Marlen Formreinaldoster, SUPERVISOR SHOP [address], [place], [address], [facility] 02/05/2025 13:07:01 5 78989 Therapeutic Exercise (1:1) completed Marlen Formreinaldoster, SUPERVISOR SHOP [address], [place], [address], [facility] 02/01/2025 18:43:22 5 42904: Manual therapy completed Marlen Formejester, SUPERVISOR SHOP [address], [place], [address], [facility] 02/01/2025 18:43:22 5 67322 Therapeutic Exercise (1:1) completed Marlen Formejester, SUPERVISOR SHOP [address], [place], [address], [facility] 01/30/2025 12:38:25 5 99378: Manual therapy completed Marlen Formejester, SUPERVISOR SHOP [address], [place], [address], [facility] 01/30/2025 12:38:25 5 30904 Therapeutic Exercise (1:1) completed Jac Lenin, PT [address], [place], [address], [facility] 01/25/2025 11:18:34 5 03956: Manual therapy completed Jac Phelps, PT [address], [place], [address], [facility] 01/25/2025 11:18:34 5 63329 Therapeutic Exercise (1:1) completed Marlen Formemykelster, SUPERVISOR SHOP [address], [place], [address], [facility] 01/23/2025 12:15:01 5 04824: Manual therapy completed Marlen Formejester, SUPERVISOR SHOP [address], [place], [address], [facility] 01/23/2025 12:15:01 5 62572 Therapeutic Exercise (1:1) completed Marlen Formejester, SUPERVISOR SHOP [address], [place], [address], [facility] 01/19/2025 13:18:56 5 36802: Manual therapy completed Marlen Formejester, SUPERVISOR SHOP [address], [place], [address], [facility] 01/19/2025 13:18:56 30585 Therapeutic Exercise (1:1) completed Marlen Formejester, SUPERVISOR SHOP [address], [place], [address], [facility] 01/16/2025 14:29:55 36831: Manual therapy completed Marlen Formejester, SUPERVISOR SHOP [address], [place], [address], [facility] 01/16/2025 14:29:55 45850 Therapeutic Exercise (1:1) completed Marlen Formejester, SUPERVISOR SHOP [address], [place], [address], [facility] 01/10/2025 12:31:36 69890: Manual therapy completed Marlen Formejester, SUPERVISOR SHOP [address], [place], [address], [facility] 01/10/2025 12:31:36 66546 Therapeutic Exercise (1:1) completed Marlen Formemykelster, SUPERVISOR SHOP [address], [place], [address], [facility] 01/08/2025 12:21:05 44228: Manual therapy completed Marlen Formejester, SUPERVISOR SHOP [address], [place], [address], [facility] 01/08/2025 12:21:05 38149 Therapeutic Exercise (1:1) completed Marlen Formejester, SUPERVISOR SHOP [address], [place], [address], [facility] 01/05/2025 14:39:26 15850: Manual therapy completed Marlen Formejester, SUPERVISOR SHOP [address], [place], [address], [facility] 01/05/2025 14:39:26 25629 Therapeutic Exercise (1:1) completed Marlen Hardyzaidaopaler, SUPERVISOR SHOP [address], [place], [address], [facility] 01/03/2025 12:36:12 03775: Manual therapy completed Marlen Hardyzachary, SUPERVISOR SHOP [address], [place], [address], [facility] 01/03/2025 12:36:12 08310 Therapeutic Exercise (1:1) completed Marlen Hardyzachary, SUPERVISOR SHOP [address], [place], [address], [facility] 12/26/2024 14:39:52 26602: Manual therapy completed Marlen Hardyzaidamykelemily, SUPERVISOR SHOP [address], [place], [address], [facility] 12/26/2024 14:40:06 15590 Therapeutic Exercise (1:1) completed Jac Phelps, PT [address], [place], [address], [facility] 12/26/2024 09:01:51 69714: Low complexity PT Eval completed Jac Phelps, PT [address], [place], [address], [facility] 12/26/2024 09:01:54 Imaging Results [...] ICD10 Code Diagnosis IMO Codes Diagnosis Note [id number] Jac Phelps, PT [facility] [address] [place] [address] 12/21/2024 11:24:57 12/21/2024 12:43:13 Right Achilles tendinitis [id number] [address] [place] [address].61 [id number] Marlen Formejeste r, SUPERVISOR SHOP [facility] [address] [place] [address] 12/26/2024 11:25:26 12/26/2024 12:42:14 Right Achilles tendinitis [id number] 54764 76.61 [id number] Marlen Formejeste r, SUPERVISOR SHOP [facility] [address] [place] [address] 01/03/2025 12:27:42 01/03/2025 13:44:41 Right Achilles tendinitis [id number] 11783 76.61 [id number] Marlen Formejeste r, SUPERVISOR SHOP [facility] [address] [place] [address] 01/05/2025 14:20:08 01/08/2025 13:53:55 Right Achilles tendinitis [id number] 79429 M76.61 [id number] Health Concerns Section Related Observation LastModified by Organization Detai ls LastModified Time None Recorded Concern Status LastModified by Organization Details LastModified Time None Recorded Payers Encounter Date Sequence Insurance Name Policy Number Policy Bonner Covered Member ID Bonner Member ID Guarantor Name 01/05/2025 1 [facility]: MEDICARE PPO BLUE (MEDICARE REPLACEMENT PPO) [id number] Candis Dobbins [id number] Candis Dobbins Notes Date Note Type Note Provider Name and Address Organization Details Recorded Time 01/05/2025 text/html Pt reports the bump on my heel still hurts a lot. Marlen Altamirano, SUPERVISOR SH[employer] [address] [facility] [address], [place], [address], [facility] 01/05/2025 16:07:44 OBGyn Episode No OBEpisode recorded.
--- OUTSIDE RECORDS SUMMARY | 2025-03-09 08:15 | XMS_ITS | Continuity of Care Document ---
Author Organization [facility], [facility] Address [address] [place] [address] Assessment Encounter Date Assessment Date Assessment LastModified by Organization Details LastModified Time 01/30/2025 01/30/2025 Assessment: Pt performed all therex to fatigue. Plan: Progress as Pt leonides. [email or web address] Not available 01/30/2025 13:12:14 Plan of Treatment Reminders Order Date Submit [...] Modified By Organization Details Last Modified Time 01/30/2025 [id number] 3 weeks of Right Ankle/Foot Strength motor [...] pattern Not available Not available Not available group home goal of Walking up or down stairs [...] surfaces Not available Not available Not available group home goal of Gait and Stance: gait WNL Not available Not available Not available 3 weeks of Pain <4/10 Not available Not available Not available director long term care goal of Pain 0/10 Not available Not available Not available group home goal of Walking on uneven surfaces (level of support required when walking on uneven surfaces) No difficulty: able to walk without support Not available Not available Not available Patient InstructionsNo instructions recorded. Reason for Referral None Reported. Procedures Surgical History Date Name Laterality Status Provider Name and Address Organization Details Recorded Time 5 13803 Therapeutic Exercise (1:1) completed Marlen Altamirano, CLINICAL DATA ANALYST [address], [place], [address], [facility] 02/07/2025 14:08:28 5 71371: Manual therapy completed Marlen Altamirano, CLINICAL DATA ANALYST [address], [place], [address], [facility] 02/07/2025 14:08:28 5 71351 Therapeutic Exercise (1:1) completed Marlen Altamirano, CLINICAL DATA ANALYST [address], [place], [address], [facility] 02/05/2025 13:07:01 5 46587: Manual therapy completed Marlen Formreinaldoster, CLINICAL DATA ANALYST [address], [place], [address], [facility] 02/05/2025 13:07:01 5 49993 Therapeutic Exercise (1:1) completed Marlen Formreinaldoster, CLINICAL DATA ANALYST [address], [place], [address], [facility] 02/01/2025 18:43:22 5 95609: Manual therapy completed Marlen Formejester, CLINICAL DATA ANALYST [address], [place], [address], [facility] 02/01/2025 18:43:22 5 33671 Therapeutic Exercise (1:1) completed Marlen Formejester, CLINICAL DATA ANALYST [address], [place], [address], [facility] 01/30/2025 12:38:25 5 52846: Manual therapy completed Marlen Formejester, CLINICAL DATA ANALYST [address], [place], [address], [facility] 01/30/2025 12:38:25 5 56446 Therapeutic Exercise (1:1) completed Jac Phelps, PT [address], [place], [address], [facility] 01/25/2025 11:18:34 5 55488: Manual therapy completed Jac Phelps, PT [address], [place], [address], [facility] 01/25/2025 11:18:34 5 89225 Therapeutic Exercise (1:1) completed Marlen Formemykelster, CLINICAL DATA ANALYST [address], [place], [address], [facility] 01/23/2025 12:15:01 5 65805: Manual therapy completed Marlen Formejester, CLINICAL DATA ANALYST [address], [place], [address], [facility] 01/23/2025 12:15:01 5 17894 Therapeutic Exercise (1:1) completed Marlen Formejester, CLINICAL DATA ANALYST [address], [place], [address], [facility] 01/19/2025 13:18:56 5 61546: Manual therapy completed Marlen Formejester, CLINICAL DATA ANALYST [address], [place], [address], [facility] 01/19/2025 13:18:56 92221 Therapeutic Exercise (1:1) completed Marlen Formejester, CLINICAL DATA ANALYST [address], [place], [address], [facility] 01/16/2025 14:29:55 63608: Manual therapy completed Marlen Formejester, CLINICAL DATA ANALYST [address], [place], [address], [facility] 01/16/2025 14:29:55 51157 Therapeutic Exercise (1:1) completed Marlen Formejester, CLINICAL DATA ANALYST [address], [place], [address], [facility] 01/10/2025 12:31:36 45013: Manual therapy completed Marlen Formemykelster, CLINICAL DATA ANALYST [address], [place], [address], [facility] 01/10/2025 12:31:36 69813 Therapeutic Exercise (1:1) completed Marlen Formemykelster, CLINICAL DATA ANALYST [address], [place], [address], [facility] 01/08/2025 12:21:05 87754: Manual therapy completed Marlen Formemykelster, CLINICAL DATA ANALYST [address], [place], [address], [facility] 01/08/2025 12:21:05 52060 Therapeutic Exercise (1:1) completed Marlen Formejester, CLINICAL DATA ANALYST [address], [place], [address], [facility] 01/05/2025 14:39:26 55294: Manual therapy completed Marlen Formejester, CLINICAL DATA ANALYST [address], [place], [address], [facility] 01/05/2025 14:39:26 88772 Therapeutic Exercise (1:1) completed Marlen Hardyzachary, CLINICAL DATA ANALYST [address], [place], [address], [facility] 01/03/2025 12:36:12 36341: Manual therapy completed Marlen Hayleyzachary, CLINICAL DATA ANALYST [address], [place], [address], [facility] 01/03/2025 12:36:12 39652 Therapeutic Exercise (1:1) completed Marlen Hayleyzachary, CLINICAL DATA ANALYST [address], [place], [address], [facility] 12/26/2024 14:39:52 00118: Manual therapy completed Marlen Hayleyzachary, CLINICAL DATA ANALYST [address], [place], [address], [facility] 12/26/2024 14:40:06 80444 Therapeutic Exercise (1:1) completed Jac Phelps, PT [address], [place], [address], [facility] 12/26/2024 09:01:51 35704: Low complexity PT Eval completed Jac Phelps, PT [address], [place], [address], [facility] 12/26/2024 09:01:54 Imaging [...] ICD10 Code Diagnosis IMO Codes Diagnosis Note [id number] Marlen Formejeste r, CLINICAL DATA ANALYST [facility] [address] [place] [address] 01/03/2025 12:27:42 01/03/2025 13:44:41 Right Achilles tendinitis [id number] 24762 76.61 [id number] Marlen Formejeste r, CLINICAL DATA ANALYST [facility] [address] [place] [address] 01/05/2025 14:20:08 01/08/2025 13:53:55 Right Achilles tendinitis [id number] 80894 M76.61 [id number] Marlen Formejeste r, CLINICAL DATA ANALYST [facility] [address] [place] [address] 01/08/2025 12:13:30 01/08/2025 13:07:40 Right Achilles tendinitis [id number] 74997 M76.61 [id number] Marlen Formejeste r, CLINICAL DATA ANALYST [facility] [address] [place] [address] 01/10/2025 12:18:29 01/10/2025 14:27:08 Right Achilles tendinitis [id number] 68641 M76.61 [id number] Marlen Formejeste r, CLINICAL DATA ANALYST [facility] [address] [place] [address] 01/16/2025 12:01:01/16/2025 13:22:14 Right Achilles tendinitis [id number] 13884 M76.61 [id number] Marlen toledo, CLINICAL DATA ANALYST [facility] [address] [place] [address] 01/19/2025 13:05:55 01/19/2025 14:03:59 Right Achilles tendinitis [id number] 92848 M76.61 [id number] Jac Evangelistaonso, PT [facility] [address] [place] [address] 01/23/2025 11:52:06 01/23/2025 11:59:01 Right Achilles tendinitis [id number] 87251 M76.61 [id number] Jac Lenin, PT [facility] [address] [place] [address] 01/25/2025 11:57:58 01/25/2025 12:55:15 Right Achilles tendinitis [id number] 02683 M76.61 [id number] Marlen toledo, CLINICAL DATA ANALYST [facility] [address] [place] [address] 01/30/2025 11:58:43 01/30/2025 12:46:17 Right Achilles tendinitis [id number] 55665 M76.61 [id number] Health Concerns Section Related Observation LastModified by Organization Detai ls LastModified Time None Recorded Concern Status LastModified by Organization Details LastModified Time None Recorded Payers Encounter Date Sequence Insurance Name Policy Number Policy Bonner Covered Member ID Bonner Member ID Guarantor Name 01/30/2025 1 [facility]: MEDICARE PPO BLUE (MEDICARE REPLACEMENT PPO) [id number] Candis Dobbins [id number] Candis Dobbins Notes Date Note Type Note Provider Name and Address Organization Details Recorded Time 01/30/2025 text/html Pt reports cont tightness R calf ms when trying to lean forward when standing. Marlen Altamirano, CLINICAL DATA ANALYST [address] [facility] [address], [place], [address], [facility] 01/30/2025 13:13:17 OBGyn Episode No OBEpisode recorded.
--- OUTSIDE RECORDS SUMMARY | 2025-03-09 08:15 | XMS_ITS | Continuity of Care Document ---
Author Organization [facility], [facility] PT Address [address] [place] [address] Assessment Encounter Date Assessment Date Assessment LastModified by Organization Details LastModified Time 12/26/2024 12/26/2024 Assessment: Increased tenderness upon palpation R achilles tendon noted. Plan: Progress as Pt leonides. [email or web address] Not available 12/26/2024 14:42:46 Plan of Treatment Reminders Order Date Submit [...] Modified By Organization Details Last Modified Time 12/26/2024 [id number] 3 weeks of Right Ankle/Foot Strength motor [...] pattern Not available Not available Not available half-way goal of Walking up or down stairs [...] surfaces Not available Not available Not available half-way goal of Gait and Stance: gait WNL Not available Not available Not available 3 weeks of Pain <4/10 Not available Not available Not available half-way goal of Pain 0/10 Not available Not available Not available exterminator goal of Walking on uneven surfaces (level of support required when walking on uneven surfaces) No difficulty: able to walk without support Not available Not available Not available Patient InstructionsNo instructions recorded. Reason for Referral None Reported. Procedures Surgical History Date Name Laterality Status Provider Name and Address Organization Details Recorded Time 5 23296 Therapeutic Exercise (1:1) completed Marlen Altamirano, EXECUTIVE RELATIONS SPECIALIST [address], [place], [address], [facility] 02/07/2025 14:08:28 5 96507: Manual therapy completed Marlen Sotoer, EXECUTIVE RELATIONS SPECIALIST [address], [place], [address], [facility] 02/07/2025 14:08:28 5 74676 Therapeutic Exercise (1:1) completed Marlen Altamirano, EXECUTIVE RELATIONS SPECIALIST [address], [place], [address], [facility] 02/05/2025 13:07:01 5 55164: Manual therapy completed Marlen Formreinaldoster, EXECUTIVE RELATIONS SPECIALIST [address], [place], [address], [facility] 02/05/2025 13:07:01 5 66499 Therapeutic Exercise (1:1) completed Marlen Formreinaldoster, EXECUTIVE RELATIONS SPECIALIST [address], [place], [address], [facility] 02/01/2025 18:43:22 5 80618: Manual therapy completed Marlen Formejester, EXECUTIVE RELATIONS SPECIALIST [address], [place], [address], [facility] 02/01/2025 18:43:22 5 62875 Therapeutic Exercise (1:1) completed Marlen Formejester, EXECUTIVE RELATIONS SPECIALIST [address], [place], [address], [facility] 01/30/2025 12:38:25 5 69357: Manual therapy completed Marlen Formejester, EXECUTIVE RELATIONS SPECIALIST [address], [place], [address], [facility] 01/30/2025 12:38:25 5 64474 Therapeutic Exercise (1:1) completed Jac Phelps, PT [address], [place], [address], [facility] 01/25/2025 11:18:34 5 43812: Manual therapy completed Jac Phelps, PT [address], [place], [address], [facility] 01/25/2025 11:18:34 5 51045 Therapeutic Exercise (1:1) completed Marlen Formemykelster, EXECUTIVE RELATIONS SPECIALIST [address], [place], [address], [facility] 01/23/2025 12:15:01 5 94354: Manual therapy completed Marlen Formejester, EXECUTIVE RELATIONS SPECIALIST [address], [place], [address], [facility] 01/23/2025 12:15:01 5 81365 Therapeutic Exercise (1:1) completed Marlen Formejester, EXECUTIVE RELATIONS SPECIALIST [address], [place], [address], [facility] 01/19/2025 13:18:56 5 64052: Manual therapy completed Marlen Formejester, EXECUTIVE RELATIONS SPECIALIST [address], [place], [address], [facility] 01/19/2025 13:18:56 01502 Therapeutic Exercise (1:1) completed Marlen Formejester, EXECUTIVE RELATIONS SPECIALIST [address], [place], [address], [facility] 01/16/2025 14:29:55 22756: Manual therapy completed Marlen Formejester, EXECUTIVE RELATIONS SPECIALIST [address], [place], [address], [facility] 01/16/2025 14:29:55 [id number] Therapeutic Exercise (1:1) completed Marlen Formejester, EXECUTIVE RELATIONS SPECIALIST [address], [place], [address], [facility] 01/10/2025 12:31:36 87853: Manual therapy completed Marlen Formemykelster, EXECUTIVE RELATIONS SPECIALIST [address], [place], [address], [facility] 01/10/2025 12:31:36 04485 Therapeutic Exercise (1:1) completed Marlen Formemykelster, EXECUTIVE RELATIONS SPECIALIST [address], [place], [address], [facility] 01/08/2025 12:21:05 94563: Manual therapy completed Marlen Formejester, EXECUTIVE RELATIONS SPECIALIST [address], [place], [address], [facility] 01/08/2025 12:21:05 88717 Therapeutic Exercise (1:1) completed Marlen Formejester, EXECUTIVE RELATIONS SPECIALIST [address], [place], [address], [facility] 01/05/2025 14:39:26 07763: Manual therapy completed Marlen Formejester, EXECUTIVE RELATIONS SPECIALIST [address], [place], [address], [facility] 01/05/2025 14:39:26 26895 Therapeutic Exercise (1:1) completed Marlen Hardyzachary, EXECUTIVE RELATIONS SPECIALIST [address], [place], [address], [facility] 01/03/2025 12:36:12 64836: Manual therapy completed Marlen Hayleyzachary, EXECUTIVE RELATIONS SPECIALIST [address], [place], [address], [facility] 01/03/2025 12:36:12 10649 Therapeutic Exercise (1:1) completed Marlen Hayleyzachary, EXECUTIVE RELATIONS SPECIALIST [address], [place], [address], [facility] 12/26/2024 14:39:52 51653: Manual therapy completed Marlen Hayleyzachary, EXECUTIVE RELATIONS SPECIALIST [address], [place], [address], [facility] 12/26/2024 14:40:06 34953 Therapeutic Exercise (1:1) completed Jac Phelps, PT [address], [place], [address], [facility] 12/26/2024 09:01:51 57133: Low complexity PT Eval completed Jac Phelps, PT [address], [place], [address], [facility] 12/26/2024 09:01:54 [...] ICD10 Code Diagnosis IMO Codes Diagnosis Note [id number] MD [facility] [address] [place] [address] 11/30/2024 14:24:24 12/05/2024 08:43:15 Right Achilles tendinitis [id number] 10916 M76.61 [id number] Jac Phelps, PT [facility] [address] [place] [address] 12/21/2024 11:24:57 12/21/2024 12:43:13 Right Achilles tendinitis [id number] 10450 M76.61 [id number] Marlen toledo, EXECUTIVE RELATIONS SPECIALIST [facility] [address] [place] [address] 12/26/2024 11:25:26 12/26/2024 12:42:14 Right Achilles tendinitis [id number] 12789 M76.61 [id number] Health Concerns Section Related Observation LastModified by Organization Detai ls LastModified Time None Recorded Concern Status LastModified by Organization Details LastModified Time None Recorded Payers Encounter Date Sequence Insurance Name Policy Number Policy Bonner Covered Member ID Bonner Member ID Guarantor Name 12/26/2024 1 [employer] (MEDICARE REPLACEMENT PPO) [id number] Candis Dobbins [id number] Candis Dobbins Notes Date Note Type Note Provider Name and Address Organization Details Recorded Time 12/26/2024 text/html Pt reports cont achilles tendon pain R LE. Marlen Altamirano, EXECUTIVE RELATIONS SPECIALIST [address] [facility] [address], [place], [address], [facility] 12/26/2024 14:43:06 OBGyn Episode No OBEpisode recorded.
--- OUTSIDE RECORDS SUMMARY | 2025-03-09 08:15 | XMS_ITS | Continuity of Care Document ---
Author Organization [facility], [facility] Address [address] [place] [address] Assessment Encounter Date Assessment Date Assessment LastModified by Organization Details LastModified Time 01/23/2025 01/23/2025 Assessment: Increased endurance noted with therex today. Plan: Progress as Pt leonides. [email or web address] Not available 01/23/2025 15:10:16 Plan of Treatment Reminders Order Date Submit [...] Modified By Organization Details Last Modified Time 01/23/2025 [id number] 3 weeks of Right Ankle/Foot Strength motor [...] Not available Not available Not available terminal computer operator goal of Walking up or down stairs [...] surfaces Not available Not available Not available shelter goal of Gait and Stance: gait WNL Not available Not available Not available 3 weeks of Pain <4/10 Not available Not available Not available terminal computer operator goal of Pain 0/10 Not available Not available Not available terminal computer operator goal of Walking on uneven surfaces (level of support required when walking on uneven surfaces) No difficulty: able to walk without support Not available Not available Not available Patient InstructionsNo instructions recorded. Reason for Referral None Reported. Procedures Surgical History Date Name Laterality Status Provider Name and Address Organization Details Recorded Time 5 91073 Therapeutic Exercise (1:1) completed Marlen Altamirano, NOCTURNIST [address], [place], [address], [facility] 02/07/2025 14:08:28 5 36218: Manual therapy completed Marlen Altamirano, NOCTURNIST [address], [place], [address], [facility] 02/07/2025 14:08:28 5 44898 Therapeutic Exercise (1:1) completed Marlen Altamirano, NOCTURNIST [address], [place], [address], [facility] 02/05/2025 13:07:01 5 22820: Manual therapy completed Marlen Formreinaldoster, NOCTURNIST [address], [place], [address], [facility] 02/05/2025 13:07:01 5 60055 Therapeutic Exercise (1:1) completed Marlen Formreinaldoster, NOCTURNIST [address], [place], [address], [facility] 02/01/2025 18:43:22 5 29079: Manual therapy completed Marlen Formejester, NOCTURNIST [address], [place], [address], [facility] 02/01/2025 18:43:22 5 23540 Therapeutic Exercise (1:1) completed Marlen Formejester, NOCTURNIST [address], [place], [address], [facility] 01/30/2025 12:38:25 5 07600: Manual therapy completed Marlen Formejester, NOCTURNIST [address], [place], [address], [facility] 01/30/2025 12:38:25 5 06423 Therapeutic Exercise (1:1) completed Jac Phelps, PT [address], [place], [address], [facility] 01/25/2025 11:18:34 5 67049: Manual therapy completed Jac Phelps, PT [address], [place], [address], [facility] 01/25/2025 11:18:34 5 92712 Therapeutic Exercise (1:1) completed Marlen Formemykelster, NOCTURNIST [address], [place], [address], [facility] 01/23/2025 12:15:01 5 78299: Manual therapy completed Marlen Formejester, NOCTURNIST [address], [place], [address], [facility] 01/23/2025 12:15:01 5 57284 Therapeutic Exercise (1:1) completed Marlen Formejester, NOCTURNIST [address], [place], [address], [facility] 01/19/2025 13:18:56 5 00785: Manual therapy completed Marlen Formejester, NOCTURNIST [address], [place], [address], [facility] 01/19/2025 13:18:56 55336 Therapeutic Exercise (1:1) completed Marlen Formejester, NOCTURNIST [address], [place], [address], [facility] 01/16/2025 14:29:55 30202: Manual therapy completed Marlen Formejester, NOCTURNIST [address], [place], [address], [facility] 01/16/2025 14:29:55 96442 Therapeutic Exercise (1:1) completed Marlen Formejester, NOCTURNIST [address], [place], [address], [facility] 01/10/2025 12:31:36 57385: Manual therapy completed Marlen Formemykelster, NOCTURNIST [address], [place], [address], [facility] 01/10/2025 12:31:36 25883 Therapeutic Exercise (1:1) completed Marlen Formemykelster, NOCTURNIST [address], [place], [address], [facility] 01/08/2025 12:21:05 77834: Manual therapy completed Marlen Formemykelster, NOCTURNIST [address], [place], [address], [facility] 01/08/2025 12:21:05 22008 Therapeutic Exercise (1:1) completed Marlen Formejester, NOCTURNIST [address], [place], [address], [facility] 01/05/2025 14:39:26 64371: Manual therapy completed Marlen Formejester, NOCTURNIST [address], [place], [address], [facility] 01/05/2025 14:39:26 17439 Therapeutic Exercise (1:1) completed Marlen Hardyzachary, NOCTURNIST [address], [place], [address], [facility] 01/03/2025 12:36:12 23374: Manual therapy completed Marlen Hayleyzachary, NOCTURNIST [address], [place], [address], [facility] 01/03/2025 12:36:12 01919 Therapeutic Exercise (1:1) completed Marlen Hayleyzachary, NOCTURNIST [address], [place], [address], [facility] 12/26/2024 14:39:52 57440: Manual therapy completed Marlen Hayleyzachary, NOCTURNIST [address], [place], [address], [facility] 12/26/2024 14:40:06 14806 Therapeutic Exercise (1:1) completed Jac Phelps, PT [address], [place], [address], [facility] 12/26/2024 09:01:51 27359: Low complexity PT Eval completed Jac Phelps, PT [address], [place], [address], [facility] 12/26/2024 09:01:54 [...] ICD10 Code Diagnosis IMO Codes Diagnosis Note [id number] Marlen Formejeste r, NOCTURNIST [facility] [address] [place] [address] 12/26/2024 11:25:26 12/26/2024 12:42:14 Right Achilles tendinitis [id number] 63422 [facility].61 [id number] Marlen Formejeste r, NOCTURNIST [facility] [address] [place] [address] 01/03/2025 12:27:42 01/03/2025 13:44:41 Right Achilles tendinitis [id number] 78498 76.61 [id number] Marlen Formejeste r, NOCTURNIST [facility] [address] [place] [address] 01/05/2025 14:20:08 01/08/2025 13:53:55 Right Achilles tendinitis [id number] 43762 76.61 [id number] Marlen Formejeste r, NOCTURNIST [facility] [address] [place] [address] 01/08/2025 12:13:30 01/08/2025 13:07:40 Right Achilles tendinitis [id number] 21700 76.61 [id number] Marlen Formejeste r, NOCTURNIST [facility] [address] [place] [address] 01/10/2025 12:18:29 01/10/2025 14:27:08 Right Achilles tendinitis [id number] 41839 M76.61 [id number] Marlen Whalen r, NOCTURNIST [facility] [address] [place] [address] 01/16/2025 12:01:25 01/16/2025 13:22:14 Right Achilles tendinitis [id number] 37953 M76.61 [id number] Marlen Whalen r, NOCTURNIST [facility] [address] [place] [address] 01/19/2025 13:05:55 01/19/2025 14:03:59 Right Achilles tendinitis [id number] 46926 M76.61 [id number] Jac Pehlps, PT [facility] [address] [place] [address] 01/23/2025 11:52:06 01/23/2025 11:59:01 Right Achilles tendinitis [id number] 90872 M76.61 [id number] Health Concerns Section Related Observation LastModified by Organization Detai ls LastModified Time None Recorded Concern Status LastModified by Organization Details LastModified Time None Recorded Payers Encounter Date Sequence Insurance Name Policy Number Policy Bonner Covered Member ID Bonner Member ID Guarantor Name 01/23/2025 1 [facility]: MEDICARE PPO BLUE (MEDICARE REPLACEMENT PPO) [id number] Candis Dobbins [id number] Candis Dobbins Notes Date Note Type Note Provider Name and Address Organization Details Recorded Time 01/23/2025 text/html Pt reports feels like her ankle is getting stronger but the bump on achilles tendon is still there. Marlen Altamirano, [facility]CTURNIST [address] [facility] [address], [place], [address], [facility] 01/23/2025 15:10:36 OBGyn Episode No OBEpisode recorded.
--- OUTSIDE RECORDS SUMMARY | 2025-03-09 08:15 | XMS_ITS | Continuity of Care Document ---
Author Organization [facility], [facility] PT Address [address] [place] [address] Assessment Encounter Date Assessment Date Assessment LastModified by Organization Details LastModified Time 01/10/2025 01/10/2025 Assessment: Cont tenderness upon palpation to L achilles tendon noted. Plan: Progress as Pt leonides. [email or web address] Not available 01/10/2025 14:23:09 Plan of Treatment Reminders Order Date Submit [...] Modified By Organization Details Last Modified Time 01/10/2025 [id number] 3 weeks of Right Ankle/Foot Strength motor [...] pattern Not available Not available Not available tosser goal of Walking up or down stairs [...] surfaces Not available Not available Not available tosser goal of Gait and Stance: gait WNL Not available Not available Not available 3 weeks of Pain <4/10 Not available Not available Not available tosser goal of Pain 0/10 Not available Not available Not available tosser goal of Walking on uneven surfaces (level of support required when walking on uneven surfaces) No difficulty: able to walk without support Not available Not available Not available Patient InstructionsNo instructions recorded. Reason for Referral None Reported. Procedures Surgical History Date Name Laterality Status Provider Name and Address Organization Details Recorded Time 5 12779 Therapeutic Exercise (1:1) completed Marlen Altamirano, [employer] TECHNICIAN INSTALLER [address], [place], [address], [facility] 02/07/2025 14:08:28 5 [id number]: Manual therapy completed Marlen Sotoer, [employer] TV TECHNICIAN INSTALLER [address], [place], [address], [facility] 02/07/2025 14:08:28 5 08843 Therapeutic Exercise (1:1) completed Marlen Altamirano, [employer] TV TECHNICIAN INSTALLER [address], [place], [address], [facility] 02/05/2025 13:07:01 5 32067: Manual therapy completed Marlen Formreinaldoster, SATELLITE TV TECHNICIAN INSTALLER [address], [place], [address], [facility] 02/05/2025 13:07:01 5 16083 Therapeutic Exercise (1:1) completed Marlen Formreinaldoster, [employer]ATE[employer] TV TECHNICIAN INSTALLER [address], [place], [address], [facility] 02/01/2025 18:43:22 5 12396: Manual therapy completed Marlen Formejester, [employer]ATELLITE TV TECHNICIAN INSTALLER [address], [place], [address], [facility] 02/01/2025 18:43:22 5 04218 Therapeutic Exercise (1:1) completed Marlen Formejester, [employer]ATE[employer]ITE TV TECHNICIAN INSTALLER [address], [place], [address], [facility] 01/30/2025 12:38:25 5 47066: Manual therapy completed Marlen Formejester, SATELLITE TV TECHNICIAN INSTALLER [address], [place], [address], [facility] 01/30/2025 12:38:25 5 14203 Therapeutic Exercise (1:1) completed Jac Lenin, PT [address], [place], [address], [facility] 01/25/2025 11:18:34 5 51292: Manual therapy completed Jac Whartono, PT [address], [place], [address], [facility] 01/25/2025 11:18:34 5 84197 Therapeutic Exercise (1:1) completed Marlen Formemykelster, SATELLITE TV TECHNICIAN INSTALLER [address], [place], [address], [facility] 01/23/2025 12:15:01 5 21485: Manual therapy completed Marlen Formejester, [employer]ATE[employer] TV TECHNICIAN INSTALLER [address], [place], [address], [facility] 01/23/2025 12:15:01 5 59606 Therapeutic Exercise (1:1) completed Marlen Formejester, SATELLITE TV TECHNICIAN INSTALLER [address], [place], [address], [facility] 01/19/2025 13:18:56 5 61432: Manual therapy completed Marlen Formejester, SATELLITE TV TECHNICIAN INSTALLER [address], [place], [address], [facility] 01/19/2025 13:18:56 55065 Therapeutic Exercise (1:1) completed Marlen Formejester, SATELLITE TV TECHNICIAN INSTALLER [address], [place], [address], [facility] 01/16/2025 14:29:55 16381: Manual therapy completed Marlen Formejester, SATELLITE TV TECHNICIAN INSTALLER [address], [place], [address], [facility] 01/16/2025 14:29:55 11176 Therapeutic Exercise (1:1) completed Marlen Formejester, SATELLITE TV TECHNICIAN INSTALLER [address], [place], [address], [facility] 01/10/2025 12:31:36 74459: Manual therapy completed Marlen Formemykelster, SATELLITE TV TECHNICIAN INSTALLER [address], [place], [address], [facility] 01/10/2025 12:31:36 60634 Therapeutic Exercise (1:1) completed Marlen Formemykelster, SATELLITE TV TECHNICIAN INSTALLER [address], [place], [address], [facility] 01/08/2025 12:21:05 68248: Manual therapy completed Marlen Formemykelster, SATELLITE TV TECHNICIAN INSTALLER [address], [place], [address], [facility] 01/08/2025 12:21:05 [id number] Therapeutic Exercise (1:1) completed Marlen Formejester, SATELLITE TV TECHNICIAN INSTALLER [address], [place], [address], [facility] 01/05/2025 14:39:26 80956: Manual therapy completed Marlen Formejester, SATELLITE TV TECHNICIAN INSTALLER [address], [place], [address], [facility] 01/05/2025 14:39:26 07601 Therapeutic Exercise (1:1) completed Marlen Hardyzachary, SATELLITE TV TECHNICIAN INSTALLER [address], [place], [address], [facility] 01/03/2025 12:36:12 32286: Manual therapy completed Marlenramez Altamirano, SATELLITE TV TECHNICIAN INSTALLER [address], [place], [address], [facility] 01/03/2025 12:36:12 66979 Therapeutic Exercise (1:1) completed Marlen Hayleyzachary, SATELLITE TV TECHNICIAN INSTALLER [address], [place], [address], [facility] 12/26/2024 14:39:52 29294: Manual therapy completed Marlen Hayleyzachary, SATELLITE TV TECHNICIAN INSTALLER [address], [place], [address], [facility] 12/26/2024 14:40:06 13395 Therapeutic Exercise (1:1) completed Jac Phelps, PT [address], [place], [address], [facility] 12/26/2024 09:01:51 75947: Low complexity PT Eval completed Jac Phelps, PT [address], [place], [address], [facility] 12/26/2024 09:01:54 Imaging [...] ICD10 Code Diagnosis IMO Codes Diagnosis Note [id number] Jac Phelps, PT [facility] [address] [place] [address] 12/21/2024 11:24:57 12/21/2024 12:43:13 Right Achilles tendinitis [id number] [address] [place] [address].61 [id number] Marlen Formejeste r, [employer]LL[employer] TV TECHNICIAN INSTALLER [facility] [address] [place] [address] 12/26/2024 11:25:26 12/26/2024 12:42:14 Right Achilles tendinitis [id number] 76.61 [id number] Marlen Formejeste r, [employer]ATELL[employer] TV TECHNICIAN INSTALLER [facility] [address] [place] [address] 01/03/2025 12:27:42 01/03/2025 13:44:41 Right Achilles tendinitis [id number] 58390 76.61 [id number] Marlen Formejeste r, [employer]ATELLITE TV TECHNICIAN INSTALLER [facility] [address] [place] [address] 01/05/2025 14:20:08 01/08/2025 13:53:55 Right Achilles tendinitis [id number] M76.61 [id number] Marlen Formejeste r, SATELLITE TV TECHNICIAN INSTALLER [facility] [address] [place] [address] 01/08/2025 12:13:30 01/08/2025 13:07:40 Right Achilles tendinitis [id number] M76.61 [id number] Marlen toledo, [facility] [address] [place] [address] 01/10/2025 12:18:29 01/10/2025 14:27:08 Right Achilles tendinitis [id number] 83662 M76.61 [id number] Health Concerns Section Related Observation LastModified by Organization Detai ls LastModified Time None Recorded Concern Status LastModified by Organization Details LastModified Time None Recorded Payers Encounter Date Sequence Insurance Name Policy Number Policy Bonner Covered Member ID Bonner Member ID Guarantor Name 01/10/2025 1 [facility]UE (MEDICARE REPLACEMENT PPO) [id number] Candis Dobbins [id number] Candis Dobbins Notes Date Note Type Note Provider Name and Address Organization Details Recorded Time 01/10/2025 text/html Pt reports Cont L heel pain and the bump is about the same. Marlen Altamirano, SATELLITE TV TECHNICIAN INSTALLER [address], [place], [address], [facility] 01/10/2025 14:23:36 OBGyn Episode No OBEpisode recorded.
[2025-03-09 11:10] LABS: Alanine Aminotransferase 18 U/L (0-31); Albumin Level 3.9 g/dL (3.5-5.0); Alkaline Phosphatase 110 U/L (39-117); Anion Gap 9 (12-20); Aspartate Amino Transferase 27 U/L (5-31); Blood Urea Nitrogen 15 mg/dL (9-16); Calcium 9.1 mg/dL (8.4-10.2); Carbon Dioxide 27 mmol/L (22-29); Chloride 109 mmol/L (96-108); Cholesterol 174 mg/dL (<200); Estimated Glomerular Filt Rate > 60; HDL Cholesterol 59 mg/dL (>40); Potassium 3.8 mmol/L (3.3-5.1); Sodium 141 mmol/L (135-145); Total Protein 6.4 g/dL (6.5-8.0); Triglycerides 67 mg/dL (<150)
== END 2025-03-09 08:11 | disposition home or self-care (01) ==
LOC: HO.HMGCX 08:10
PROVIDERS: PCP Internal Medicine; Visit Provider Internal Medicine
DX: M25.471 Effusion, right ankle (principal); I10 Essential (primary) hypertension; E78.5 Hyperlipidemia, unspecified; Z13.1 Encounter for screening for diabetes mellitus
CPT/HCPCS: 36415; 76882; 80053; 80061; 83036

== ENCOUNTER → 2025-03-09 08:13 | Outpatient (BNV) | payer MEDICARE, SELFPAY | PROVIDERS: PCP Internal Medicine; Visit Provider Radiology Diagnostic Radiology | DX: M25.471 Effusion, right ankle (principal) | CPT/HCPCS: 76882 ==